=== PATIENT | male | born 1955 | race Caucasian/White ===

== ENCOUNTER 2022-12-19 14:08 | Outpatient (REF) | payer MEDICARE, SELFPAY ==
[2022-12-19 18:30] LABS: Appearance Urine Clear; Color Urine Yellow; Glucose Urine UA Negative (Negative); Leukocyte Esterase Urine Negative (Negative); Nitrite Urine Negative (Negative); PH 5.5 (5.0-9.0); Urine Blood Negative (Negative); Urine Ketones Negative (Negative); Urine Protein Negative (Neg-Trace)
== END 2022-12-19 14:09 | disposition home or self-care (01) ==
LOC: HO.MANLDS 14:08
PROVIDERS: Visit Provider Physician Assistant
DX: R30.0 Dysuria (principal)
CPT/HCPCS: 81003

== ENCOUNTER → 2022-12-21 09:37 | Outpatient (REF) | payer MEDICARE, SELFPAY ==
--- NOTE | 2022-12-21 10:03 | CA_ITS ---
Transthoracic Echocardiogram Patient (Last, First, Middle): Jeremie Dobbins, Gender: Male Date of : 1955 Age: 67 Procedure Date: 12/21/2022 Procedure Type: Transthoracic Echocardiogram Location: [facility] Height: 172.72 cm Weight: 83.92 kg BSA: 1.98 m2 Heart Rate: bpm BP: 175 / 85 mmHg Protection Officer: ASH Referring MD: Kirsten ORONA Medical Chemist: Logan Sahu MD Symptoms: PAF I48.0 Study Quality: Adequate ECG Rhythm: Sinus Conclusions: - 1. Normal LV systolic function with LVEF of 65-70% with moderate LVH with impaired relaxation filling pattern 2. Mild mitral regurgitation 3. Normal RV systolic pressure 4. Upper limits of normal ascending aortic size 5. No pericardial effusion Findings Left Ventricle Normal left ventricular size and systolic function. There is moderately increased left ventricular wall thickness. The visually estimated ejection fraction is between 65-70%. Spectral Doppler is indicative of an impaired relaxation filling pattern. E/E prime ratio is between 8 and 15 consistent with indeterminate filling pressures. Right Ventricle Normal right ventricular cavity size and systolic function. Atria The left atrium is likely dilated. There is no evidence of interatrial shunt. The right atrium is normal in size. Aortic Valve Normal aortic valve structure and function. There is no aortic valve stenosis. There is no aortic valve regurgitation. Mitral Valve There is mild anterior and posterior mitral leaflet thickening. There is mild mitral valve regurgitation. There is no mitral valve stenosis. Pulmonic Valve The pulmonic valve is likely normal. Tricuspid Valve Normal tricuspid valve structure. There is trace tricuspid valve regurgitation. The right ventricular systolic pressure is normal. The right ventricular systolic pressure is 24 mmHg. Normal right atrial pressure. There is no evidence of pulmonary hypertension. Great Vessels The pulmonary artery was not well visualized. Venous The inferior vena cava is normal in size and collapses greater than 50% with inspiration. Pericardium/Pleural There is no evidence of pericardial effusion. Prior Study Comparison No prior study available for comparison. Measurements 2D Linear Measurements IVSd: 1.47 0.6-0.9/0.6-1.0 cm LVIDd: 3.93 3.9-5.3/4.2-5.9 cm LVIDd Index: 1.98 2.4-3.2/2.2-3.1 cm/m2 LVIDs: 2.48 2.0-3.6 cm LVPWd: 1.43 0.7-1.1 cm Ao Root: 3.10 2.1-3.5 cm LA Diam: 4.40 2.7-3.8/3.0-4.0 cm LAIDs Index: 2.22 1.5-2.3 cm/m2 LV Mass: 268.23 67-162/88-224 g LV Mass Index: 135.47 43-95/49-115 g/m2 LVOT Diam: 2.20 3.0+(-)1.3 cm Mitral Valve MV Pk E: 0.54 MV PK A: 0.63 MV Decel Time: 232.00 E/A: 0.90 E'Lateral: 14.10 E'Medial: 7.29 E/E' Med: 7.50 E/E' Lat: 3.90 PHT: 68.00 MVA PHT: 3.24 Decel [place]: 2.34 Aortic Valve AoV Pk Chidi: 1.35 AoV Mn Chidi: 0.80 AoV VTI: 0.37 AoV Pk Grad: 7.00 Aov Mn Grad: 3.00 RISSA Cont.VTI: 2.67 LVOT LVOT Pk Chidi: 0.84 LVOT Mn Chidi: 0.53 LVOT VTI: 0.26 LVOT Pk Grad: 3.00 LVOT Mn Grad: 1.00 LVOT Diam: 2.20 LVOT Area: 3.80 Diastolic Function MV Pk E: 0.54 MV Pk A: 0.63 E/A: 0.90 E'Medial: 7.29 E/E' Med: 7.50 E' Laterial: 14.10 E/E' Lat: 3.90 Right Ventricle TAPSE (mm): 21.00 TVS' Chidi: 9.00 Tricuspid Valve TR Pk Chidi: 2.31 TR Pk Grad: 21.00 RA Press: 3.00 RVSP: 24.00 Great Vessels Aorta Ao Root-2D: 3.10 2.0-3.7 cm Ao Asc: 3.60 2.1-3.4 cm Pulmonary Valve PV Pk Chidi: 0.90 Peak PV Grad: 3.00 Updated in Other Vendor System with Status of Final Logan Sahu MD electronically signed on 12/21/2022 12:36:02 PM with status of Final
== END ==
LOC: HO.CARD 09:37
PROVIDERS: PCP Internal Medicine; Referring Provider Internal Medicine Cardiovascular Disease; Visit Provider Physician Assistant
DX: I48.0 Paroxysmal atrial fibrillation (principal)
CPT/HCPCS: 93306

== ENCOUNTER 2023-11-23 10:49 | Outpatient (AMB) | payer MEDICARE, SELFPAY ==
--- NOTE | 2023-11-23 10:51 | MHC.OFFVIS ---
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 Accompanied by: Self / Same As Patient Allergies amlodipine Allergy (Severe, Verified 11/23/23 11:02) Swelling Clonidine Allergy (Severe, Uncoded 11/23/23 11:02) Hives Hydralazine Allergy (Mild, Uncoded 11/23/23 11:02) Nausea and Vomiting Nefedipine Allergy (Mild, Uncoded 11/23/23 11:02) Numbness parzonsin Allergy (Mild, Uncoded 11/23/23 11:02) Unknown Tadalafil Allergy (Mild, Uncoded 11/23/23 11:02) Unknown Medication List - Last Reconciled 11/23/23 by Daniel Pierce MD apixaban (Eliquis) 5 mg PO BID cyanocobalamin (vitamin B-12) 1,000 mcg subcut DAILY famotidine 40 mg PO DAILY glycopyrrolate-neostigmine 0.6 mg-3 mg/3mL (0.2 mg-1mg/mL) mL IV hydrochlorothiazide 12.5 mg PO BID irbesartan 150 mg PO BID lansoprazole 30 mg PO DAILY metoprolol succinate ER 25 mg PO BID HPI Comments Details: Jeremie is here for consultation regarding uncontrolled hypertension. It seems that he is tried various medications over time and has had numerous issues. He brought a file with extensive list of meds tried, side effects etc.. It seems that with amlodipine he had severe ankle swelling. With hydralazine, he had diarrhea, vomiting and various other issues. With doxazosin, had lightheadedness. With clonidine patch, he had hives on his face and body. With nifedipine, he had pins and needles. With labetalol labile readings. Steep blood pressure drop. With prazosin, again blood pressure went too low. He is taking carvedilol but not anymore. Not clear if there were any issues at all. Current meds include irbesartan and hydrochlorothiazide. Otherwise, there is 1 episode of atrial fibrillation treated in [place], May 2022. He states he had other Holter through cardiology in [place] and told to have asymptomatic episodes. He remains on anticoagulation. Otherwise, no documented CAD but it seems he does get chest pain with or without activity. Possible angina. Generalized tiredness all the time. [facility] Medical History (Updated 11/23/23 @ 11:49 by Daniel Pierce MD) Essential hypertension PAF (paroxysmal atrial fibrillation) Family History (Updated 11/23/23 @ 11:09 by Any Chery CMA) Father High blood pressure History of multiple strokes Social History (Updated 11/23/23 @ 11:10 by Any Chery CMA) Household Members: Spouse Alcohol intake: current Patient Tobacco Use Status: Never used Tobacco Review of Systems Const Denies chills, Denies fatigue, Denies fever(s), Denies frequent falls, Denies weakness, Denies weight gain and Denies weight loss ENT Denies dizziness Card Denies chest pain, Denies leg edema, Denies lightheadedness, Denies palpitations, Denies dyspnea, Denies dyspnea on exertion and Denies orthopnea Resp Denies cough, Denies dyspnea and Denies dyspnea on exertion GI Denies bloating and Denies change in bowel habits Musc Denies muscle weakness, Denies numbness and Denies tingling Neuro Denies dizziness, Denies frequent falls, Denies numbness, Denies tingling and Denies weakness Endo Denies fatigue and Denies palpitations Physical Exam Vital Signs: Last Vital Signs Pulse 57 11/23/23 10:54 BP 150/70 H 11/23/23 10:54 BMI result Body Mass Index 28.8 Const General: comfortable and no acute distress Orientation/consciousness: patient oriented x3 HEENT Other: Unremarkable Head: Yes normal to inspection Neck Neck: Yes normal visual inspection Chest Chest palpation & inspection: normal inspection of the chest Resp Auscultation: clear to auscultation bilaterally Cardio Palpation: normal PMI Heart sounds: S1 normal heart sound present, S2 normal heart sound present, no gallops, no murmurs and no rubs GI Palpation (GI): Soft to palpation Back/Spine/Pelvis Other: unremarkable Skin General skin exam: no rashes or lesions noted Neuro General: patient oriented x3 Extrem General: Yes normal to inspection Psych Mental Status: mental status grossly normal Office Procedures EKG Details: EKG with sinus bradycardia 57/Min; leftward axis; no significant ST-T [place]; [place] [id number], Complete Assessment & Plan Assessment & Plan (1) Uncontrolled hypertension: Code(s): I10 - Essential (primary) hypertension Category: Medical Plan: Intolerance to various medications including amlodipine, hydralazine, doxazosin, clonidine patch, nifedipine, labetalol, prazosin. We can continue the irbesartan hydrochlorothiazide without changes. Again try Coreg instead of metoprolol as it has a better blood pressure lowering effect. He will let us know if he has any side effects. Not clear if there was any issue with spironolactone in the past. Per labs brought by patient, N terminal proBNP 196. Renin level <0.6. Potassium 4.2. Creatinine 0.8. High sensitivity troponin within normal limits. Renin, metanephrine, normetanephrine, aldosterone within normal limits. Also obtain renal artery Doppler. Possibly assess for renal denervation in the future. (2) Precordial chest pain: Code(s): R07.2 - Precordial pain Category: Medical Plan: Need to evaluate angina from obstructive CAD. Obtain exercise stress perfusion imaging study. Prior ETT at [facility] 2022-attained 7.8 Mets. No EKG evidence of ischemia. No angina. Frequent PACs during exercise. Echocardiogram from 2022-LVEF of 65-70%; mild diastolic dysfunction and mild mitral regurgitation. (3) PAF (paroxysmal atrial fibrillation): Code(s): I48.0 - Paroxysmal atrial fibrillation Category: Medical Plan: Beta-blockers and anticoagulation. He still has some palpitations and hence obtain Holter monitor. EKG from [place], 2021-atrial fibrillation with rapid ventricular rate at 01:33/Min. Nonspecific ST-T changes. (4) NSVT (nonsustained ventricular tachycardia): Code(s): I47.29 - Other ventricular tachycardia Category: Medical Plan: Per cardiology notes in [place], a prior Holter had shown 11 beat run of NSVT. Continue beta-blockers as above. Preserved LVEF on echocardiogram. Obtain stress test. Plan Total time spent including review of all the patient records, counseling, documentation, coordination of care-65 minutes. Orders: Orders CA stress test Today R07.2 - Precordial pain NM cardiolite stress test Today R07.2 - Precordial pain ECG 7 day holter monitor Today R00.2 - Palpitations US renal doppler Today I70.1 - Atherosclerosis of renal artery Medications: New carvedilol (Coreg) must administer with a meal/food 12.5 mg PO BID 90 days 180 tabs 3RF Coding Level of Care Code New Pt Level 5 (40860) Diagnoses Uncontrolled hypertension I10 Precordial chest pain R07.2 PAF (paroxysmal atrial fibrillation) I48.0 NSVT (nonsustained ventricular tachycardia) I47.29 CPT Codes EKG - CPT: [id number], Complete ([id number])
[2023-11-23 10:54] VITALS: BP 150/70; PULSE 57; BMI 28.8
== END 2023-11-23 11:36 | disposition home or self-care (01) ==
PROVIDERS: PCP Internal Medicine; Visit Provider Internal Medicine
DX: I10 Essential (primary) hypertension (principal); R07.2 Precordial pain; I48.0 Paroxysmal atrial fibrillation; I47.29 Other ventricular tachycardia; R00.1 Bradycardia, unspecified
CPT/HCPCS: 93010; 99205

== ENCOUNTER → 2023-11-23 10:49 | Outpatient (BNVA) | payer MEDICARE, SELFPAY | PROVIDERS: PCP Internal Medicine; Visit Provider Internal Medicine | DX: I10 Essential (primary) hypertension (principal); I48.0 Paroxysmal atrial fibrillation; I47.29 Other ventricular tachycardia; R07.2 Precordial pain | CPT/HCPCS: 93005; 99202 ==

== ENCOUNTER 2023-12-05 07:33 | Outpatient (REF) | payer MEDICARE, SELFPAY ==
--- NOTE | ~2023-12-05 | US_ITS ---
EXAMINATION: ULTRASOUND RENAL WITH DOPPLER CLINICAL INFORMATION: Renal artery atherosclerosis. COMPARISON: None. TECHNIQUE: Real-time grayscale, color Doppler, and duplex Doppler evaluation of the kidneys and renal vasculature was performed. FINDINGS: RENAL MEASUREMENTS: Right: 11.3 x 5.5 x 5.5 cm (Sag x AP x TV). There is mild cortical thinning. Left: 11.9 x 5.7 x 4.4 cm (Sag x AP x TV). There is cortical thinning. At the interpolar aspect laterally, a 3.7 cm benign, simple cyst is seen, for which no imaging follow-up is recommended. The renal parenchyma appears normal. No hydronephrosis or nephrolithiasis. DOPPLER INTERROGATION: Aorta: 111 cm/sec Right Main Renal Artery: Proximal: 105 cm/sec Mid: 187 cm/sec Distal: 74 cm/sec Left Main Renal Artery: Proximal: 97 cm/sec Mid: 95 cm/sec Distal: 62 cm/sec Renal-Aortic Ratio (RAR): Right: Not calculated (aortic PSV greater than 100 cm/s) Left: Not calculated, as above Bilateral upper pole, interpolar and lower pole segmental resistive indices are within normal limits. There is mild delay in upstroke of right renal interpolar segmental waveforms. Bilateral upper pole, interpolar and lower pole segmental pulse doppler waveforms are otherwise unremarkable, with uniformly rapid upstrokes and no parvus et tardus configuration. US/US renal BI IMPRESSION: 1. There is borderline hemodynamically significant right renal artery stenosis. This can be further evaluated with CTA or MRA, if clinically indicated. 2. No hemodynamically significant left renal artery stenosis is seen.
--- NOTE | ~2023-12-05 | US_ITS ---
EXAMINATION: ULTRASOUND RENAL WITH DOPPLER CLINICAL INFORMATION: Renal artery atherosclerosis. COMPARISON: None. TECHNIQUE: Real-time grayscale, color Doppler, and duplex Doppler evaluation of the kidneys and renal vasculature was performed. FINDINGS: RENAL MEASUREMENTS: Right: 11.3 x 5.5 x 5.5 cm (Sag x AP x TV). There is mild cortical thinning. Left: 11.9 x 5.7 x 4.4 cm (Sag x AP x TV). There is cortical thinning. At the interpolar aspect laterally, a 3.7 cm benign, simple cyst is seen, for which no imaging follow-up is recommended. The renal parenchyma appears normal. No hydronephrosis or nephrolithiasis. DOPPLER INTERROGATION: Aorta: 111 cm/sec Right Main Renal Artery: Proximal: 105 cm/sec Mid: 187 cm/sec Distal: 74 cm/sec Left Main Renal Artery: Proximal: 97 cm/sec Mid: 95 cm/sec Distal: 62 cm/sec Renal-Aortic Ratio (RAR): Right: Not calculated (aortic PSV greater than 100 cm/s) Left: Not calculated, as above Bilateral upper pole, interpolar and lower pole segmental resistive indices are within normal limits. There is mild delay in upstroke of right renal interpolar segmental waveforms. Bilateral upper pole, interpolar and lower pole segmental pulse doppler waveforms are otherwise unremarkable, with uniformly rapid upstrokes and no parvus et tardus configuration. US/US renal doppler IMPRESSION: 1. There is borderline hemodynamically significant right renal artery stenosis. This can be further evaluated with CTA or MRA, if clinically indicated. 2. No hemodynamically significant left renal artery stenosis is seen.
== END 2023-12-05 07:34 | disposition home or self-care (01) ==
LOC: HO.US 07:33
PROVIDERS: PCP Internal Medicine; Visit Provider Internal Medicine
DX: I70.1 Atherosclerosis of renal artery (principal)
CPT/HCPCS: 76775; 93975

== ENCOUNTER → 2024-01-04 07:54 | Outpatient (REF) | payer MEDICARE, SELFPAY ==
--- NOTE | ~2024-01-04 | NM_ITS ---
EXERCISE MYOCARDIAL PERFUSION STUDY INDICATION: Abnormal EKG, chest pain TECHNIQUE: The patient was brought in for an exercise perfusion study on 01/04/2024. Patient performed exercise as per Servando protocol and was injected 30 mCi of sestamibi once target heart rate was achieved. Images were obtained using the SPECT gamma camera interlaced with the gating device. Images were obtained in supine position. Resting perfusion study was performed on 01/11/2024. Patient was administered 30 mCi of sestamibi intravenously at rest. Images were then obtained in supine position. Images were processed with the software and compared side to side in short axis, horizontal long axis and vertical long axis views. Total DLP 59mGy-cm. FINDINGS: Raw images were reviewed. The stress perfusion study showed diminished tracer uptake along the inferior wall. There is improvement with CT attenuation correction seen just to of diaphragmatic attenuation artifact. The gated study shows normal LV systolic function with calculated LVEF of 62%. LV cavity is normal in size. The gated study shows normal wall thickening and contraction of segments. Resting study shows diminished tracer uptake along the inferior wall. There is improvement with CT attenuation correction suggestive of diaphragmatic attenuation artifact. Gating at rest reveals normal wall motion with ejection fraction at 72%. The findings are consistent with fixed inferior perfusion defect, probably from diaphragmatic attenuation artifact. No reversible defects. NM/NM cardiolite stress test IMPRESSION: 1. Myocardial perfusion imaging study shows probably normal myocardial perfusion. 2. Gated LVEF is 62% during stress and 72% during rest. 3. Transient ischemic dilatation not present. EKG component of the test reported separately.
--- NOTE | 2024-01-04 07:58 | HM_ITS ---
Conclusion: 1. Patient was monitored for total period of 6 days and 21 hours 2. Baseline was normal sinus rhythm with average heart rate of 73 beats per minute 3. Frequent PACs noted with total burden of 3.1% with frequent supraventricular runs, longest lasting 20 beats and the fastest at 142 beats per minute 4. Occasional PVCs noted 5. No patient reported events MTDD
--- NOTE | 2024-01-04 07:58 | CA_ITS ---
Acquisition Time: 2024-01-04 07:52:09 Total Exercise Time: 00:08:33 Test Indications: Abnormal ECG HTN Medications: ELIQUIS FAMOTIDINE HCTZ IRBESARTAN LANSOPRAZOLE METOPROLOL Protocol: KARINE Max HR: 117 BPM 78% of Pred: 150 BPM Max BP: 144/070 mmHG Max Work Load: 10.1 METS Exercise stress test with exercise 8 min 33 sec of Karine protocol, achieving 75% MPHR ( took carvedilol this am), 10.1 METs with mderate shortness of breath, with isolated PACs, brief atrial runs, rare PVCs, with normotensive response to exercise, without EKG changes meeting criteria for ischemia. Nuclear images pending. Test reviewed with Dr Harrell.. Referred By: Daniel Pierce Overread By: VENUS CONDE
== END ==
LOC: HO.CARD 07:54
PROVIDERS: PCP Internal Medicine; Visit Provider Internal Medicine
DX: R07.2 Precordial pain (principal); R00.2 Palpitations
CPT/HCPCS: 78452; 93017; 93242; A9500

== ENCOUNTER → 2024-01-04 07:58 | Outpatient (BNV) | payer MEDICARE, SELFPAY | PROVIDERS: PCP Internal Medicine; Visit Provider Nurse Practitioner Family | DX: I49.1 Atrial premature depolarization (principal); I47.10 Supraventricular tachycardia, unspecified; I49.3 Ventricular premature depolarization | CPT/HCPCS: 78452; 93016; 93018; 93244 ==

== ENCOUNTER 2024-01-30 12:46 | Outpatient (REF) | payer MEDICARE, SELFPAY ==
[2024-01-30 15:16] LABS: Anion Gap 13 (12-20); Blood Urea Nitrogen 17 mg/dL (9-16); Calcium 9.6 mg/dL (8.4-10.2); Carbon Dioxide 28 mmol/L (22-29); Chloride 105 mmol/L (96-108); Estimated Glomerular Filt Rate > 60; Glucose Random 104 mg/dL (60-115); Potassium 3.6 mmol/L (3.3-5.1); Sodium 142 mmol/L (135-145)
== END 2024-01-30 12:47 | disposition home or self-care (01) ==
LOC: HO.LAB 12:46
PROVIDERS: PCP Internal Medicine; Visit Provider Internal Medicine
DX: I10 Essential (primary) hypertension (principal); R07.2 Precordial pain; I48.0 Paroxysmal atrial fibrillation; I47.29 Other ventricular tachycardia
CPT/HCPCS: 36415; 80048; 99212

== ENCOUNTER 2024-01-30 12:46 | Outpatient (AMB) | payer MEDICARE, SELFPAY ==
--- NOTE | 2024-01-30 12:59 | A.OFFVIS_ITS ---
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 Accompanied by: Self / Same As Patient Allergies amlodipine Allergy (Severe, Verified 11/23/23 11:02) Swelling Clonidine Allergy (Severe, Uncoded 11/23/23 11:02) Hives Hydralazine Allergy (Mild, Uncoded 11/23/23 11:02) Nausea and Vomiting Nefedipine Allergy (Mild, Uncoded 11/23/23 11:02) Numbness parzonsin Allergy (Mild, Uncoded 11/23/23 11:02) Unknown Tadalafil Allergy (Mild, Uncoded 11/23/23 11:02) Unknown Medication List - Last Reconciled 01/30/24 by Daniel Pierce MD apixaban (Eliquis) 5 mg PO BID carvedilol (Coreg) 12.5 mg PO BID 90 days cyanocobalamin (vitamin B-12) 1,000 mcg subcut DAILY famotidine 40 mg PO DAILY hydrochlorothiazide 12.5 mg PO BID irbesartan 150 mg PO BID lansoprazole 30 mg PO DAILY HPI Comments Details: Jeremie returns for follow-up. In the past, was seen regarding uncontrolled hypertension. It seems that he has tried various medications over time and has had numerous issues. He brought a file with extensive list of meds tried, side effects etc.. It seems that with amlodipine he had severe ankle swelling. With hydralazine, he had diarrhea, vomiting and various other issues. With doxazosin, had lightheadedness. With clonidine patch, he had hives on his face and body. With nifedipine, he had pins and needles. With labetalol labile readings. Steep blood pressure drop. With prazosin, again blood pressure went too low. Current meds include irbesartan and hydrochlorothiazide. During reason visit, we started carvedilol. Otherwise, there is one episode of atrial fibrillation treated in [place], May 2022. He states he had other Holter through cardiology in [place] and told to have asymptomatic episodes. He remains on anticoagulation. Otherwise, no documented CAD but it seems he does get chest pain with or without activity. Unclear what that is. Generalized tiredness. COUNT INCLUDES THE [facility] Medical History (Updated 11/23/23 @ 11:49 by Daniel Pierce MD) Essential hypertension PAF (paroxysmal atrial fibrillation) Family History Father High blood pressure History of multiple strokes Social History Household Members: Spouse Alcohol intake: current Patient Tobacco Use Status: Never used Tobacco Review of Systems Const Denies chills, Denies fatigue, Denies fever(s), Denies weight gain and Denies weight loss ENT Denies dizziness Card Reports chest pain, Denies leg edema, Denies lightheadedness, Denies palpitations, Denies dyspnea on exertion, Denies orthopnea and Denies other Resp Denies cough and Denies dyspnea on exertion GI Denies hematochezia and Denies change in stool character Musc Denies abnormal gait, Denies muscle weakness, Denies numbness, Denies radiating pain into limb and Denies tingling Neuro Denies abnormal gait, Denies dizziness, Denies numbness and Denies tingling Endo Denies fatigue and Denies palpitations Physical Exam Vital Signs: Last Vital Signs Pulse 64 01/30/24 13:00 BP 114/70 01/30/24 13:00 BMI result Body Mass Index 28.4 Const General: comfortable and no acute distress Orientation/consciousness: patient oriented x3 HEENT Other: Unremarkable Head: Yes normal to inspection Neck Neck: Yes normal visual inspection Chest Chest palpation & inspection: normal inspection of the chest Resp Auscultation: clear to auscultation bilaterally Cardio Palpation: normal PMI Heart sounds: S1 normal heart sound present, S2 normal heart sound present, no gallops, no murmurs and no rubs GI Palpation (GI): Soft to palpation Back/Spine/Pelvis Other: unremarkable Skin General skin exam: no rashes or lesions noted Neuro General: patient oriented x3 Extrem General: Yes normal to inspection Psych Mental Status: mental status grossly normal Assessment & Plan Assessment & Plan (1) Uncontrolled hypertension: Code(s): I10 - Essential (primary) hypertension Category: Medical Plan: Intolerance to various medications including amlodipine, hydralazine, doxazosin, clonidine patch, nifedipine, labetalol, prazosin. Current regimen includes irbesartan/hydrochlorothiazide. Recently, we started carvedilol and that seems to be working well. He was on metoprolol prior to that. Blood pressure is completely normal today but he thinks home blood pressures are slightly on the higher side somewhere in the 130s +. He will bring his cuff next time so we can cross check. Not clear if there was any issue with spironolactone in the past, possibly another agent for future. Per labs brought by patient, N terminal proBNP 196. Renin level <0.6. Potassium 4.2. Creatinine 0.8. High sensitivity troponin within normal limits. Renin, metanephrine, normetanephrine, aldosterone within normal limits. Also obtain renal artery Doppler. Possibly assess for renal denervation in the future if there is continued BP issue or blood pressure medicine intolerance. Otherwise, he is awaiting CTA of renal arteries as there was some borderline finding on ultrasound. (2) Precordial chest pain: Code(s): R07.2 - Precordial pain Category: Medical Plan: In the most recent ETT, he was able to reach 10 METS capacity with shortness of breath. Reduced heart rate response but he was on beta-blockers. No EKG evidence of ischemia. Perfusion was also unremarkable. Prior ETT at [facility] 2022-attained 7.8 METS. No EKG evidence of ischemia. No angina. Frequent PACs during exercise. Echocardiogram from 2022-LVEF of 65-70%; mild diastolic dysfunction and mild mitral regurgitation. Will continue to monitor. Consider coronary CTA if this continues. (3) PAF (paroxysmal atrial fibrillation): Code(s): I48.0 - Paroxysmal atrial fibrillation Category: Medical Plan: In the recent Holter, underlying rhythm is sinus with an average rate of 73/Min. Frequent PACs with a burden of 3%. Short supraventricular runs. EKG from [place], 2021-atrial fibrillation with rapid ventricular rate at 133/Min. Nonspecific ST-T changes. Beta-blockers and anticoagulation. (4) NSVT (nonsustained ventricular tachycardia): Code(s): I47.29 - Other ventricular tachycardia Category: Medical Plan: Per cardiology notes in [place], a prior Holter had shown 11 beat run of NSVT. Continue beta-blockers as above. Preserved LVEF on echocardiogram. Stress test without any overt ischemia. Orders: Orders Basic Metabolic Panel Today I10 - Essential (primary) hypertension Coding Level of Care Code Est Pt Level 4 (69680) Diagnoses Uncontrolled hypertension I10 Precordial chest pain R07.2 PAF (paroxysmal atrial fibrillation) I48.0 NSVT (nonsustained ventricular tachycardia) I47.29
[2024-01-30 13:00] VITALS: BP 114/70; PULSE 64; BMI 28.4
== END 2024-01-30 13:49 | disposition home or self-care (01) ==
PROVIDERS: PCP Internal Medicine; Visit Provider Internal Medicine
DX: I10 Essential (primary) hypertension (principal); R07.2 Precordial pain; I48.0 Paroxysmal atrial fibrillation; I47.29 Other ventricular tachycardia
CPT/HCPCS: 99214

== ENCOUNTER 2024-02-20 10:32 | Outpatient (REF) | payer MEDICARE, SELFPAY ==
--- NOTE | ~2024-02-20 | CT_ITS ---
EXAMINATION: CT ANGIOGRAPHY ABDOMEN WITHOUT AND WITH CONTRAST CLINICAL INFORMATION: Renal artery atherosclerosis COMPARISON: Renal ultrasound 12/05/2023 TECHNIQUE: Initial noncontrast localizing director of testing images were obtained. A timing bolus at the level of the celiac artery was calculated. Subsequently, arterial phase multidetector volumetric imaging was performed through the abdomen and pelvis following the administration of 80 mL Omnipaque 350 intravenous contrast. No contrast reaction reported. Sagittal and coronal reformatted images were obtained on the technologist workstation. After extensive post-processing on a dedicated 3-D workstation, 3-D reformatted images were uploaded to PACS and reviewed as well. This CT examination was performed using dose optimization techniques as appropriate, variously including the following: *Automated exposure control *Adjustment of mA and/or kV according to patient size (this includes techniques or standardized protocols for targeted exams where dose is matched to indication/reason for exam; i.e. extremities or head) *Use of iterative reconstruction technique DLP: 173 mGy-cm FINDINGS: VASCULAR FINDINGS: Aorta: Mild infrarenal atherosclerotic calcifications. No aneurysm or dissection of the abdominal aorta. No penetrating atheromatous ulcer. Mesenteric Arteries: Celiac artery is patent. Superior mesenteric artery patent. Inferior mesenteric artery patent. Renal arteries: Two right and two left renal arteries. Minimal atherosclerotic calcifications of the left dominant renal artery. Renal arteries are patent and without stenosis or other vascular anomaly. 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 Left common iliac artery is patent with minimal atherosclerotic disease. NONVASCULAR: Lung Bases: The visualized lung bases are clear. Liver: Homogeneous in attenuation. Normal in size. Gallbladder: Noninflamed. Biliary System: No intrahepatic or extrahepatic biliary dilation. Pancreas: Homogeneous in attenuation. Spleen: Normal in size. Genitourinary: Bilateral kidneys demonstrate symmetric enhancement. Exophytic left interpolar posterior Bosniak 1 cyst measuring 3.9 x 3.9 cm; no follow-up needed. No perinephric fluid collection. No renal calculi. No hydroureteronephrosis. Adrenal Glands: Unremarkable. Gastrointestinal: The visualized alimentary tract is normal in course. No evidence of obstruction. Peritoneum: No pneumoperitoneum. No intra-abdominal fluid collection. Lymph Nodes: No pathologically enlarged abdominal lymph nodes. Soft Tissues/Musculoskeletal: There is no acute fracture or significant focal osseous lesion. Degenerative disc disease at L5-S1. CT/CT angio abdomen IMPRESSION: VASCULAR FINDINGS: 1. 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 No hemodynamically significant stenosis of these renal arteries. 2. 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 NONVASCULAR FINDINGS: No acute pathology of the abdomen. Fleischner guidelines were followed.
[2024-02-20] MEDS: iohexoL 350 MG/ML 100 ML INFUS..BTL 80 ML IV (11:58)
== END 2024-02-20 10:33 | disposition home or self-care (01) ==
LOC: HO.CT 10:32
PROVIDERS: Visit Provider Internal Medicine
DX: I70.1 Atherosclerosis of renal artery (principal)
CPT/HCPCS: 74175; Q9967

== ENCOUNTER 2024-04-03 12:44 | Outpatient (AMB) | payer MEDICARE, SELFPAY ==
[2024-04-03 12:50] VITALS: BP 128/76; PULSE 70; BMI 28.5
--- NOTE | 2024-04-03 12:50 | A.OFFVIS_ITS ---
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 Allergies amlodipine Allergy (Severe, Verified 11/23/23 11:02) Swelling Clonidine Allergy (Severe, Uncoded 11/23/23 11:02) Hives Hydralazine Allergy (Mild, Uncoded 11/23/23 11:02) Nausea and Vomiting Nefedipine Allergy (Mild, Uncoded 11/23/23 11:02) Numbness parzonsin Allergy (Mild, Uncoded 11/23/23 11:02) Unknown Tadalafil Allergy (Mild, Uncoded 11/23/23 11:02) Unknown Medication List - Last Reconciled 04/03/24 by Daniel Pierce MD apixaban (Eliquis) 5 mg PO BID atorvastatin 40 mg PO QPM carvedilol (Coreg) 12.5 mg PO BID 90 days cyanocobalamin (vitamin B-12) 1,000 mcg subcut DAILY famotidine 40 mg PO DAILY hydrochlorothiazide 12.5 mg PO BID irbesartan 150 mg PO BID lansoprazole 30 mg PO DAILY HPI Comments Details: Jeremie returns for follow-up. In the past, was seen regarding uncontrolled hypertension. He has tried various medications over time and has had numerous issues. He brought a file with extensive list of meds tried, side effects etc.. With amlodipine he had severe ankle swelling. With hydralazine, he had diarrhea, vomiting and various other issues. With doxazosin, had lightheadedness. With clonidine patch, he had hives on his face and body. With nifedipine, he had pins and needles. With labetalol, labile readings. Steep blood pressure drop. With prazosin, again blood pressure went too low. Current meds include irbesartan and hydrochlorothiazide. During recent visit, we started carvedilol. Otherwise, there is one episode of atrial fibrillation treated in [place], May 2022. He states he had other Holter through cardiology in [place] and told to have asymptomatic episodes. He remains on anticoagulation. He was complaining of some chest pains in the past but completely resolved at this time. Otherwise, no new concerns. [facility] Medical History (Updated 02/25/24 @ 18:51 by Daniel Pierce MD) Essential hypertension PAF (paroxysmal atrial fibrillation) Family History Father High blood pressure History of multiple strokes Social History Household Members: Spouse Alcohol intake: current Patient Tobacco Use Status: Never used Tobacco Review of Systems Const Denies chills, Denies fatigue, Denies fever(s), Denies frequent falls, Denies weakness, Denies weight gain and Denies weight loss ENT Denies dizziness Card Denies chest pain, Denies leg edema, Denies lightheadedness, Denies palpitations, Denies dyspnea, Denies dyspnea on exertion, Denies orthopnea and Denies other (loss of consciousness) Resp Denies cough, Denies dyspnea and Denies dyspnea on exertion GI Denies hematochezia and Denies change in stool character Musc Denies abnormal gait, Denies muscle weakness, Denies numbness, Denies radiating pain into limb and Denies tingling Neuro Denies abnormal gait, Denies dizziness, Denies frequent falls, Denies numbness, Denies tingling and Denies weakness Endo Denies fatigue and Denies palpitations Physical Exam Vital Signs: Last Vital Signs Pulse 70 04/03/24 12:50 BP 128/76 04/03/24 12:50 BMI result Body Mass Index 28.5 Const General: comfortable and no acute distress Orientation/consciousness: patient oriented x3 HEENT Other: Unremarkable Head: Yes normal to inspection Neck Neck: Yes normal visual inspection Chest Chest palpation & inspection: normal inspection of the chest Resp Auscultation: clear to auscultation bilaterally Cardio Palpation: normal PMI Heart sounds: S1 normal heart sound present, S2 normal heart sound present, no gallops, no murmurs and no rubs GI Palpation (GI): Soft to palpation Back/Spine/Pelvis Other: unremarkable Skin General skin exam: no rashes or lesions noted Neuro General: patient oriented x3 Extrem General: Yes normal to inspection Psych Mental Status: mental status grossly normal Assessment & Plan Assessment & Plan (1) Uncontrolled hypertension: Code(s): I10 - Essential (primary) hypertension Category: Medical Plan: Intolerance to various medications including amlodipine, hydralazine, doxazosin, clonidine patch, nifedipine, labetalol, prazosin. He is on irbesartan and hydrochlorothiazide and would like to combine them into a single tablet. Appropriate script sent. Continue carvedilol. Blood pressure seems much improved. Not clear if there was any issue with spironolactone in the past, possibly another agent for future. Per labs brought by patient, N terminal proBNP 196. Renin level <0.6. Potassium 4.2. Creatinine 0.8. High sensitivity troponin within normal limits. Renin, metanephrine, normetanephrine, aldosterone within normal limits. In the CTA, no significant renal artery stenosis. (2) Precordial chest pain: Code(s): R07.2 - Precordial pain Category: Medical Plan: In the ETT, he was able to reach 10 METS capacity with shortness of breath. Reduced heart rate response but he was on beta-blockers. No EKG evidence of ischemia. Perfusion was also unremarkable. Prior ETT at [facility] 2022-attained 7.8 METS. No EKG evidence of ischemia. No angina. Frequent PACs during exercise. Echocardiogram from 2022-LVEF of 65-70%; mild diastolic dysfunction and mild mitral regurgitation. Currently, he states chest pain is resolved. (3) PAF (paroxysmal atrial fibrillation): Code(s): I48.0 - Paroxysmal atrial fibrillation Category: Medical Plan: In the recent Holter, underlying rhythm is sinus with an average rate of 73/Min. Frequent PACs with a burden of 3%. Short supraventricular runs. EKG from [place], 2021-atrial fibrillation with rapid ventricular rate at 133/Min. Nonspecific ST-T changes. Beta-blockers and anticoagulation. (4) NSVT (nonsustained ventricular tachycardia): Code(s): I47.29 - Other ventricular tachycardia Category: Medical Plan: Per cardiology notes in [place], a prior Holter had shown 11 beat run of NSVT. Continue beta-blockers as above. Preserved LVEF on echocardiogram. Stress test without any overt ischemia. 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 Referred to vascular. Otherwise, strongly recommend statins. Prescription was sent in the past but he has not started yet as he is apprehensive of new medications. Advised him to at least try. Will need follow-up labs in the future. Plan As he is traveling to [place], we will need to see him many returns. Medications: New irbesartan-hydrochlorothiazide 150-12.5 mg 1 tab PO BID 180 tabs 3RF 90 days Coding Level of Care Code Est Pt Level 4 (35527) Diagnoses Uncontrolled hypertension I10 Precordial chest pain R07.2 PAF (paroxysmal atrial fibrillation) I48.0 NSVT (nonsustained ventricular tachycardia) I47.29 Iliac artery dissection I77.72
== END 2024-04-03 13:13 | disposition home or self-care (01) ==
PROVIDERS: PCP Internal Medicine; Visit Provider Internal Medicine
DX: I10 Essential (primary) hypertension (principal); R07.2 Precordial pain; I48.0 Paroxysmal atrial fibrillation; I47.29 Other ventricular tachycardia; I77.72 Dissection of iliac artery
CPT/HCPCS: 99214

== ENCOUNTER → 2024-04-03 12:44 | Outpatient (BNVA) | payer MEDICARE, SELFPAY | PROVIDERS: PCP Internal Medicine; Visit Provider Internal Medicine | DX: I10 Essential (primary) hypertension (principal); I48.0 Paroxysmal atrial fibrillation; I77.72 Dissection of iliac artery; I47.29 Other ventricular tachycardia; R07.2 Precordial pain | CPT/HCPCS: 99212 ==

== ENCOUNTER 2024-05-16 13:26 | Outpatient (AMB) | payer MEDICARE, SELFPAY ==
--- NOTE | 2024-05-16 13:34 | A.OFFVIS_ITS ---
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 No complaints. 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 He had originally been worked up for hypertension by Cardiology. He had intolerance to several medications. He subsequently underwent an ultrasound which was concerning for questionable renal artery stenosis subsequent CT angiogram was obtained at that time the renal arteries appear to be within normal limits but there was a question of a dissection flap on the right common iliac artery from a penetrating ulcer. At the current time he denies any symptoms. He remains quite active and has been remodeling his house. He is able to climb 1-2 flights of stairs with no significant difficulty. He reports that he quit smoking about 30 years ago. At the current time he is being maintained on Eliquis and a statin. [facility] Medical History Essential hypertension PAF (paroxysmal atrial fibrillation) Family History Father High blood pressure History of multiple strokes Social History Household Members: Spouse Alcohol intake: current Patient Tobacco Use Status: Never used Tobacco Review of Systems Const All systems reviewed & are unremarkable except as noted in HPI and below Reports no additional complaints ENT Reports Normal hearing present Card Denies chest pain, Denies chest pain at rest, Denies chest pain with activity and Denies pedal edema Resp Denies cough GI Denies abdominal pain Musc Denies abnormal gait, Denies muscle cramps and Denies radiating pain into limb Skin/Breast Denies skin ulcer and Denies wounds Neuro Reports Normal hearing present and Denies abnormal gait Psych Reports no additional complaints Physical Exam Const General: cooperative, healthy appearing and comfortable Orientation/consciousness: oriented to person, oriented to place and oriented to time HEENT Head: Yes normal to inspection Neck Neck: Yes normal visual inspection Carotids: no bruits Chest Chest palpation & inspection: normal inspection of the chest Resp Effort & Inspection: normal respiratory effort and able to speak in complete sentences Auscultation: clear to auscultation bilaterally, no crackles, no rales, no rhonchi and no wheezes Cardio Other: Bilateral palpable dorsalis pedis pulse Rate: regular rate Rhythm: regular rhythm Heart sounds: S1 normal heart sound present and S2 normal heart sound present Bruits: no carotid bruits Peripheral pulses: Peripheral pulses 2+ throughout GI Inspection: Yes normal to inspection Skin Wounds: no wounds Hair: normal Neuro General: oriented to person, oriented to place and oriented to time Cranial nerves: Yes CN's II-XII intact bilaterally and Yes Normal hearing present Cognition (Neuro): normal cognition Motor exam (neuro): 5/5 motor strength present throughout Extrem Other: venous exam: No significant superficial varicosities or spider te [place]ie[place]ias, minimal edema General: No clubbing, No cyanosis and No edema Psych Appearance: grossly normal Mental Status: mental status grossly normal Speech and movement: Normal speech and movement present Results Reviewed Results Reviewed: CT angiogram dated 02/20/2024 demonstrates short segment right common iliac dissection Assessment & Plan Assessment & Plan (1) PAD (peripheral artery disease): Code(s): I73.9 - Peripheral vascular disease, unspecified Category: Medical Plan: In short patient has a question of a right common iliac stenosis/dissection. At the current time it appears to be stable and is not flow-limiting. I have taken the liberty of ordering noninvasive surveillance arterial testing in approximately 6 months time. He will be maintained on Eliquis and statin. He will follow up with us after testing. We did discuss routine risk factor modification. Thank you for allowing us to assist in his care. If there are any questions or concerns please do not hesitate to contact us Orders: Orders US arterial duplex LE BI 6 Months I73.9 - Peripheral vascular disease, unspecified US abdominal aortic aneurysm 6 Months I73.9 - Peripheral vascular disease, unspecified Coding Level of Care Code New Pt Level 4 (06994) Complex EM visit Add On G2211 Diagnoses PAD (peripheral artery disease) I73.9
== END 2024-05-16 13:56 | disposition home or self-care (01) ==
LOC: HO.HVS 13:26
PROVIDERS: PCP Internal Medicine; Visit Provider Surgery Vascular Surgery
DX: I73.9 Peripheral vascular disease, unspecified (principal)
CPT/HCPCS: 99204; G2211

== ENCOUNTER → 2024-05-16 13:26 | Outpatient (BNVA) | payer MEDICARE, SELFPAY | PROVIDERS: PCP Internal Medicine; Visit Provider Surgery Vascular Surgery | DX: I73.9 Peripheral vascular disease, unspecified (principal) | CPT/HCPCS: 99202 ==

== ENCOUNTER 2024-11-22 07:50 | Outpatient (REF) | payer MEDICARE, SELFPAY ==
--- NOTE | ~2024-11-22 | US_ITS ---
EXAMINATION: Noninvasive assessment of the bilateral lower extremities with ARTERIAL DUPLEX, ANKLE BRACHIAL INDICES (ABIs), and PULSE VOLUME RECORDINGS (PVRs). ULTRASOUND AORTA AND ILIAC ARTERIES CLINICAL INFORMATION: Peripheral vascular disease. TECHNIQUE: Duplex Doppler techniques with waveform analysis and measurement of velocities in the bilateral common femoral, profunda femoris, superficial femoral, popliteal and tibial arteries were performed. Additionally, ankle pulse volume recordings, ankle pressure measurements and ankle brachial indices were obtained of the lower extremity arterial system bilaterally. The study was performed only at rest. Doppler arterial ultrasound of the arteries and iliac arteries. COMPARISON: None FINDINGS: DIRECT DUPLEX DOPPLER FINDINGS: RIGHT LEG: Common femoral artery: 145 cm/s, phasicity: Triphasic. Profunda femoris artery: 71 cm/s, phasicity: Biphasic. Superficial femoral artery (proximal): 115 cm/s, phasicity: Biphasic. Superficial femoral artery (mid): 103 cm/s, phasicity: Biphasic Superficial femoral artery (distal): 67 cm/s, phasicity: Aphasic. Popliteal artery: 60 cm/s, phasicity: Biphasic. Posterior tibial artery: 81 cm/s, phasicity: Triphasic. Peroneal artery: 70 cm/s, phasicity: Triphasic. Anterior tibial artery: 55 cm/s, phasicity: Triphasic. Dorsalis pedis artery: 62 cm/s, phasicity:Triphasic. LEFT LEG: Common femoral artery: 149 cm/s, phasicity: Triphasic. Profunda femoris artery: 62 cm/s, phasicity: Biphasic. Superficial femoral artery (proximal): 114 cm/s, phasicity: Biphasic. Superficial femoral artery (mid): 109 cm/s, phasicity: Biphasic. Superficial femoral artery (distal): 68 cm/s, phasicity: Biphasic. Popliteal artery: 59 cm/s, phasicity: Biphasic. Posterior tibial artery: 97 cm/s, phasicity: Biphasic. Peroneal artery: 54 cm/s, phasicity: Biphasic. Anterior tibial artery: 93 cm/s, phasicity: Triphasic. Dorsalis pedis artery: 87 cm/s, phasicity: Triphasic. BRACHIAL PRESSURES: Right: 144 Left: 153 ANKLE PRESSURES: Right: PT more 200, DP more 200 Left: PT more 200, DP more 200 ANKLE-BRACHIAL INDEX: Right: Nondiagnostic Left: Nondiagnostic ANKLE PVR WAVEFORMS: Right: Abnormal Left: Abnormal ABDOMINAL AORTA: Proximal segment, not identified. Midsegment: Peak systolic velocity the 80 cm/s and a 1.7 cm diameter. Distal segment: Peak systolic velocity 47 cm/s and 1.4 cm diameter. Right iliac artery: Common iliac artery peak systolic velocity 177 cm/s. External iliac artery peak systolic velocity 178 cm/s. Left iliac artery: Common iliac arteries exhibit the velocity 111 cm/s. External iliac artery peak systolic velocity 121 cm/s US/US abdominal aortic aneurysm IMPRESSION: Right leg: Mild inflow disease throughout the interrogated vessels. Left leg: Mild inflow disease throughout the interrogated vessels. Limited evaluation of the abdominal aorta demonstrated no gross aneurysm or high peak systolic velocities BHANU Reference: - >1.4 = calcified vessels - 0.9 - 1.4 = normal - no significant arterial disease - 0.7 - 0.89 = mild peripheral arterial disease - 0.51 - 0.69 = moderate peripheral arterial disease - d 0.50 = severe peripheral arterial disease - < .30 = critical arterial disease Electronically signed by: Yossi Miller MD 11/22/2024 10:23 AM EDT
--- OUTSIDE RECORDS SUMMARY | 2024-11-22 07:55 | XMS_ITS | Data Portability ---
Author Organization [facility] Home Service Address [address] [place] [address] Assessment Encounter Date Assessment Date Assessment LastModified by Organization Details LastModified Time 06/07/2023 06/07/2023 Patient agreed and verbally consents to this audio and video Telehealth appt via a secure platform [email or web address] Not available 06/07/2023 11:11:05 06/14/2023 06/14/2023 Patient agreed and verbally consents to this audio and video Telehealth appt via a secure platform [email or web address] Not available 06/14/2023 11:27:27 06/21/2023 06/21/2023 Patient agreed and verbally consents to this audio and video Telehealth appt via a secure platform [email or web address] Not available 06/21/2023 14:32:42 Plan of Treatment Reminders Order Date Submit Date Provider Last Modified By Organization Details Last Modified Time Details Appointments ANNUAL EXAM 2024 02:15P M ADWOA BOCANEGRA Not available Not available Not available Lab None recorded. Referral sleep medicine referral 2023 024 [facility], [address], [place], [address], 05/08/2024 08:18:01 Procedures None recorded. Surgeries None recorded. Imaging None recorded. Medication Orders metoprolo l succinate ER 25 mg tablet,ex tended release 24 hr 2022 023 [email or web address] [facility], [address] [facility], [place], [address], 05/07/2024 11:31:00 metoprolo l succinate ER 50 mg tablet,ex tended release 24 hr 2022 [facility] [address] [place] [address], [address], 07/12/2023 15:46:16 hydrochlo rothiazid e 12.5 mg capsule 2022 024 [facility], [address] [place], [address], 05/07/2024 12:07:13 Patient TargetsNo targets recorded. Patient InstructionsNo instructions recorded. Reason for Referral Sleep Medicine Referral for Fatigue grinds teeth, hx of afib and resistant HTN with increased daytime sleepiness Referring Physician: Neil Handy, Internal Medicine, Encounter Date: 05/07/2024 Results Created Date Observation Date Name Description Value Unit Range Abnormal Flag Note LastModifiedBy Organization Detail LastModifiedTime 12/20/19 24 12/05/2023 US, renal arter y No observ ation record ed. [address] (Medical Records) [address] [place], [address], 12/22/2023 07:41:43 12/20/19 24 12/05/2023 US, renal arter y No observ ation record ed. [address] (Medical Records) [address] [place], [address], 12/22/2023 07:41:25 01/11/20 24 01/04/2024 vin can cardi olite stres s test (PROC ) No observ ation record ed. [email or web address] [facility] (Medical Records) [address] [place], [address], 01/12/2024 10:47:06 Result Notes None recorded. 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 22:26:55 Crohn's disease 94308659 Active 2020 Not Available [facility] 2 22:26:54 Inguinal hernia 407162079 Active 2020 pelvic, middle Not Available [facility] 2 22:26:54 Hypertens gilberto disorder 36020924 Active 2020 Not Available [facility] 2 22:26:54 Basal cell carcinoma of skin 174338885 Active 2020 Not Available [facility] 2 22:26:55 Polyp of colon 90501821 Active 2020 Not Available [facility] 2 22:26:55 Hyperchol esterolem ia 68293637 Active 2020 Not Available [facility] 2 22:26:55 Liver function tests outside reference range 112030036 Active 2020 Not Available [facility] 2 22:26:55 Non-alcoh olic fatty liver 330254749 Active 2020 Not Available [facility] 2 22:26:55 Tinnitus 47903374 Active 2020 Not Available [facility] 2 22:26:55 Cobalamin deficienc y 385301286 Active 2020 Not Available [facility] 2 22:26:55 Motion sickness 64280675 Active 2021 Not Available [facility] 2 22:26:54 Paroxysma l atrial fibrillat ion 826850675 Active 2022 ADWOA BOCANEGRA [address] [place] [address], [address], [facility] 3 10:46:40 Adrenal cyst 136608913 Active 2022 ADWOA BOCANEGRA [address] [place] [address], [address], [facility] 3 11:36:16 Dysuria 37447575 Active 2022 ADWOA BOCANEGRA [address] [place] [address], [address], [facility] 3 11:37:49 Atrial fibrillat ion 23159070 Active 2022 ADWOA BOCANEGRA [address] [place], [address], [facility] 3 10:17:59 Erectile dysfuncti on 831825940 Active 2022 ADWOA BOCANEGRA [address] [place], [address], [facility] 3 10:43:20 Essential hypertens ion 61059682 Active 2022 ADWOA BOCANEGRA [address] [place], [address], [facility] 3 10:46:50 Malignant hypertens ion 25015078 Active 2022 ADWOA BOCANEGRA [address] [place], [address], [facility] 3 10:01:59 Hypertens gilberto emergency 98752668792 9104 Active 2022 ADWOA BOCANEGRA [address] [place], [address], [facility] 3 10:04:44 Malignant essential hypertens ion 99669251 Active 2022 ADWOA BOCANEGRA [address] [place], [address], [facility] 3 11:26:23 Benign prostatic hyperplas ia 558204202 Active 2022 ADWOA BOCANEGRA [address] [place], [address], [facility] 3 11:28:14 Resistant hypertens gilberto disorder 19430226807 4109 Active 2022 ADWOA BOCANEGRA [address] [place], [address], [facility] 3 11:12:57 Grinding teeth 99795538 Active 2023 ADWOA BOCANEGRA [address] [place] [address], [address], [facility] 12:20:10 Fatigue 10718207 Active 2023 ADWOA BOCANEGRA [address] [place] [address], [address], [facility] 12:21:35 Colitis 60172397 Active 2023 ADWOA BOCANEGRA [address] [place] [address], [address], [facility] 12:24:00 Notes:Some problems listed i n Documents: #[id number], #[id number] could not be added to this patient's chart. Please review these documents and add these problems to the patient's chart manually as needed. Problem Notes None recorded. Procedures Surgical History Date Name Laterality Status Provider Name and Address Organization Details Recorded Time 05/02/20 23 Colonoscopy completed Kevin Good DO [address] [place] [address], [address], [facility] 05/03/2023 11:18:22 05/02/20 23 endoscopy completed Kevin Good DO [address] [place] [address], [address], [facility] 05/03/2023 11:18:58 Imaging Results Imaging Date Name Status LastModified by Organiz ation Details LastModified Time 12/05/2023 US, renal artery completed [address] (Medical Records) [address] [place], [address], 12/22/2023 07:41:43 12/05/2023 US, renal artery completed [address] (Medical Records) [address] [place], [address], 12/22/2023 07:41:25 01/04/2024 lexiscan cardiolite stress test (PROC) completed [email or web address] [facility] (Medical Records) [address] [place], [address], 01/12/2024 10:47:06 Procedure Notes None recorded. Medical Equipment None Reported. Allergies Allergen ID Allergen Name Allergen Category Reaction Reaction Severity Criticality Documentation Date Start Date Code Code System Note Provider Name and Address Organization Details Recorded Time 4646 Flagyl medicatio n Not available Not available Not available 02/09/2021 6 RxNorm Concepcion mcdermott [facility] 1 15:12:14 4647 Pentasa medicatio n Not available Not available Not available 02/09/2021 5 RxNorm Concepcion mcdermott [facility] 1 15:12:20 7089 amlodipin e medicatio n swelling Not available Not available 02/20/2023 29214 Rx[facility] 09:56:38 7090 hydralazi ne medicatio n Not available Not available Not available 02/20/2023 5470 RxNorm [facility]a [facility] 09:56:55 7091 clonidine medicatio n Not available Not available Not available 02/20/2023 2599 RxNorm Jennysandhya Zaldivar [facility] 3 09:57:19 7092 nifedipin e medicatio n Not available Not available Not available 02/20/2023 7417 RxNorm [facility] 3 09:58:41 7093 spironola ctone medicatio n abdominal pain nausea Not available Not available Not available 02/20/2023 9997 RxNorm NEIL HANDY, PA [address] [place], [address], [facility] 3 11:23:02 7449 prazosin medicatio n Not available Not available Not available 05/23/2023 8629 RxNorm NEIL HANDY, PA [address] [place], [address], [facility] 3 11:25:21 7450 doxazosin medicatio n Not available Not available Not available 05/23/2023 48763 RxNorm ADWOA BOCANEGRA [address] [place], [address], [facility] 11:25:28 Medications Name Sig Start Date Stop Date Status Note LastModified by Organization Details LastModified Time amoxicillin 500 mg capsule TAKE 1 CAPSULE BY MOUTH THREE TIMES DAILY UNTIL GONE active Not Available Not Available No t Available atorvastati n 40 mg tablet TAKE 1 TABLET BY MOUTH IN THE EVENING active Not Available Not Available No t Available carvedilol 6.25 mg tablet Take 1 tablet twice a day by oral route for 30 days. 05/17 completed Not Available Not Available Not Available doxycycline hyclate 100 mg capsule TAKE 1 CAPSULE BY MOUTH TWICE DAILY WITH FOOD AND WATER 02/20 completed Not Available Not Available Not Available carvedilol 12.5 mg tablet TAKE 1 TABLET BY MOUTH TWICE DAILY MUST TAKE WITH A MEAL/FOOD active Not Available Not Available No t Available labetalol 200 mg tablet TAKE 1 TABLET BY MOUTH TWICE DAILY 02/20 completed Not Available Not Available Not Available clonidine 0.1 mg/24 hr weekly transdermal patch APPLY 1 PATCH TOPICALLY ONCE A WEEK 02/20 completed Not Available Not Available Not Available irbesartan 150 mg-hydrochl orothiazide 12.5 mg tablet TAKE 1 TABLET BY MOUTH TWICE DAILY active Not Available Not Available No t Available metoprolol succinate ER 50 mg tablet,exte nded release 24 hr TAKE 1 TABLET BY MOUTH TWICE DAILY 07/12 completed Not Available Not Available Not Available famotidine 40 mg tablet TAKE 1 TABLET BY MOUTH ONCE DAILY FOR 90 DAYS active Not Available Not Available No t Available amlodipine 2.5 mg tablet TAKE 1 TABLET BY MOUTH TWICE DAILY 11/22 completed Not Available Not Available Not Available nifedipine ER 30 mg tablet,exte nded release TAKE 1 TABLET BY MOUTH ONCE DAILY 02/20 completed Not Available Not Available Not Available chlorthalid one 25 mg tablet TAKE 1 TABLET BY MOUTH ONCE DAILY FOR 30 DAYS 05/19 completed Not Available Not Available Not Available amlodipine 5 mg tablet TAKE 1 TABLET BY MOUTH EVERY NIGHT AT BEDTIME 11/22 completed Not Available Not Available Not Available nicardipine 20 mg capsule Take 1 capsule 3 times a day by oral route for 30 days. 05/30 completed Not Available Not Available Not Available spironolact one 25 mg tablet Take 1 tablet every day by oral route for 30 days. 05/23 completed Not Available Not Available Not Available dexamethaso ne 1 mg tablet TAKE 1 TABLET BY MOUTH ONCE FOR 1 DOSE. TAKE THE NIGHT BEFORE BLOODWORK 04/08 completed Not Available Not Available Not Available diltiazem CD 300 mg capsule,ext ended release 24 hr TAKE 1 CAPSULE BY MOUTH ONCE DAILY FOR 90 DAYS 02/20 completed Not Available Not Available Not Available cephalexin 500 mg capsule TAKE 1 CAPSULE BY MOUTH EVERY 8 HOURS FOR 7 DAYS 05/07 completed Not Available Not Available Not Available cyanocobala min (vit B-12) 1,000 mcg/mL injection solution INJECT 1 ML INTRAMUSC ULARLY ONCE EVERY MONTH DIRECTED 2024 active Not Available Not Available Not Avai lable Gentle Laxative (bisacodyl) 5 mg tablet,sandra yed release TAKE 4 TABLETS BY MOUTH A ONE TIME DOSE BEFORE BEGINNING BOWEL PREP SOLUTION 02/20 completed Not Available Not Available Not Available irbesartan 300 mg-hydrochl orothiazide 12.5 mg tablet TAKE 1 TABLET BY MOUTH ONCE DAILY 11/22 completed Not Available Not Available Not Available lansoprazol e 30 mg capsule,del ayed release TAKE 1 CAPSULE BY MOUTH ONCE DAILY active Not Available Not Available No t Available guanfacine 1 mg tablet TAKE 1 TABLET BY MOUTH ONCE DAILY FOR 30 DAYS 04/26 completed Not Available Not Available Not Available metoprolol tartrate 50 mg tablet TAKE 1 TABLET BY MOUTH QD DAILY 01/05 completed Not Available Not Available Not Available hydrochloro thiazide 12.5 mg capsule TAKE 1 CAPSULE BY MOUTH TWICE DAILY DIRECTED 05/07 completed Not Available Not Available Not Available BD Luer-Tatiana Syringe 3 mL 25 gauge x 1 USE 1 SYRINGE MONTHLY 2024 active Not Available Not Available Not Avai lable doxazosin 4 mg tablet TAKE 1 TABLET BY MOUTH ONCE DAILY 05/10 completed 1/2 tab for a week Not Available Not Available Not Available hydralazine 50 mg tablet TAKE 1 TABLET BY MOUTH TWICE DAILY 11/22 completed Not Available Not Available Not Available mupirocin 2 % topical ointment APPLY OINTMENT TOPICALLY TO AFFECTED AREA TWICE DAILY UNTIL HEALED 02/20 completed Not Available Not Available Not Available metoprolol succinate ER 25 mg tablet,exte nded release 24 hr TAKE 1 TABLET BY MOUTH TWICE DAILY 05/07 completed Not Available Not Available Not Available irbesartan 150 mg tablet TAKE 1 TABLET BY MOUTH TWICE DAILY 05/07 completed Not Available Not Available Not Available scopolamine 1 mg over 3 days transdermal patch Apply 1 patch every 72 hours by transderm al route for 30 days. 04/08 completed Not Available Not Available Not Available irbesartan 300 mg tablet TAKE 1 TABLET BY MOUTH ONCE DAILY 05/07 completed Not Available Not Available Not Available prazosin 2 mg capsule Take 1 capsule twice a day by oral route as needed for 30 days. 05/23 completed Not Available Not Available Not Available oxycodone 5 mg tablet TAKE 1 TABLET BY MOUTH EVERY 4 HOURS NEEDED FOR PAIN active Not Available Not Available No t Available valsartan 160 mg-hydrochl orothiazide 25 mg tablet TAKE 1 TABLET BY MOUTH EVERY DAY FOR 30 DAYS 05/01 completed Not Available Not Available Not Available syringe with needle 1 mL 25 gauge x 1 INJECT 1 ML INTRAMUSC ULARLY ONCE EVERY MONTH 02/09 completed Not Available Not Available Not Available tadalafil 5 mg tablet TAKE 1 TABLET BY MOUTH ONCE DAILY active hold Not Available Not Available No t Available tadalafil 20 mg tablet Take 1 tablet every day by oral route for 12 days. 05/23 completed Not Available Not Available Not Available chlorhexidi ne gluconate 0.12 % mouthwash RINSE WITH 15ML FOR 30 SECONDS AND SPIT, USE TWICE DAILY AFTER BRUSHING AND FLOSSING . active Not Available Not Available No t Available valsartan 320 mg-hydrochl orothiazide 25 mg tablet Take 1 tablet every day by oral route for 30 days. 05/01 completed Not Available Not Available Not Available BD Integra Syringe 3 mL 25 gauge x 1 USE 1 SYRINGE EVERY MONTH 07/22 completed Not Available Not Available Not Available hydrochloro thiazide 12.5 mg tablet TAKE 1 TABLET BY MOUTH ONCE DAILY FOR 90 DAYS 05/10 completed Not Available Not Available Not Available GaviLyte-G 236 gram-22.74 gram-6.74 gram-5.86 gram oral solution USE DIRECTED 02/20 completed Not Available Not Available Not Available Eliquis 5 mg tablet TAKE 1 TABLET BY MOUTH TWICE DAILY active Not Available Not Available No t Available Vitals Date Recorded Body height Body mass index (BMI) Body weight Heart rate Oxygen saturation Oxygen saturation in Arterial blood by Pulse oximetry Systolic blood pressure Diastolic blood pressure Provider Name and Address Organization Details Last Updated DateTime 3 173.99 cm 30 kg/m2 45794.4 7 g 67 /min 97 % 97 % 140 mm[Hg] 70 mm[Hg] Jenny Zaldivar [facility] 3 16:08:34 Date Recorded Body height Body mass index (BMI) Body weight Heart rate Oxygen saturation Oxygen saturation in Arterial blood by Pulse oximetry Systolic blood pressure Diastolic blood pressure Provider Name and Address Organization Details Last Updated DateTime 4 173.99 cm 28.5 kg/m2 61154.9 1 g 56 /min 97 % 97 % 162 mm[Hg] 86 mm[Hg] Marcie Hensley [facility] 4 11:32:49 Social History Question Answer Notes LastModified by Huan Xiong Details LastModified Time Tobacco Smoking Status Former Smoker Quit 30 years ago Vidhi mcdermott [facility] 01/05/2022 11:23:50 What Is Your Level Of Alcohol Consumption? Occasional Information not available 02/19/2021 What Is Your Level Of Caffeine Consumption? Heavy 2 Large Per Day Information not available 02/19/2021 Which Illicit Or Recreational Drugs Have You Used? Canabis Information not available 02/19/2021 What Was The Date Of Your Most Recent Tobacco Screening? 05/07/2024 [email or web address] Information not available 05/07/2024 Do You Use Any Illicit Or Recreational Drugs? Yes [email or web address] Information not available 05/19/2023 Sex: Unknown Functional Status Question Answer Note LastModified by Huan Xiong Details LastModified Time What is your exercise level? Occasional Information not available 02/19/2021 Mental Status None recorded. Family History Nothing Reported. Medical History No medical history recorded. Immunizations Vaccine Type Date Status Note Provider Nam e and Address Organization Details Recorded Time COVID-19, mRNA, LNP-S, PF, 30 mcg/0.3 mL dose [address] [facility] 05/23/2023 06:41:19 COVID-19, mRNA, LNP-S, PF, 30 mcg/0.3 mL dose [address] [facility] 05/23/2023 06:41:19 COVID-19, mRNA, LNP-S, PF, 30 mcg/0.3 mL dose [address] [facility] 05/23/2023 06:41:19 zoster live [address] [facility] 05/23/2023 06:41:19 Influenza, split virus, quadrivalent, preservative [address] [facility] 05/23/2023 06:41:19 SARS-COV-2 (COVID-19) vaccine, UNSPECIFIED 2 completed Marcie mcdermott [facility] 05/07/2024 09:50:17 SARS-COV-2 (COVID-19) vaccine, UNSPECIFIED 3 completed Marcie mcdermott, [facility] 05/07/2024 09:50:26 SARS-COV-2 (COVID-19) vaccine, UNSPECIFIED 4 completed Marcie mcdermott [facility] 05/07/2024 09:50:32 pneumococcal, unspecified formulation 4 completed Marcie mcdermott [facility] 05/07/2024 09:50:51 influenza, unspecified formulation 2 completed Marcie mcdermott [facility] 05/07/2024 09:51:04 influenza, unspecified formulation 3 completed Marcie mcdermott [facility] 05/07/2024 09:51:10 influenza, unspecified formulation 4 completed Marcie mcdermott [facility] 05/07/2024 09:51:17 zoster, unspecified formulation 3 completed Marcie mcdermott [facility] 05/07/2024 09:51:35 zoster, unspecified formulation 3 completed Marcie Hensley baldemar [facility] 05/07/2024 09:51:41 Past Encounters Encounter ID Performer Location Encounter Start Date Encounter Closed Date Diagnosis/Indication Diagnosis SNOMED-CT Code Diagnosis ICD10 Code Diagnosis Note [id number] Kevin Good [facility] [address] [facility] [address] 02/19/2021 10:27:04 02/19/2021 11:09:42 Mcdaniel's esophagus 522165238 K22.70 stable Cobalamin deficiency 190 337308 E53.8 stable Crohn's disease 48824987 K50.90 stableno recent flare ups per patient Hypercholesterolemia 136 07084 E78.00 will need recheck of his blood work Hypertensive disorder 38 030115 I10 BP elevated Liver func tion tests outside reference range 376215243 R94.5 due to fatty liver Non-alcoho lic fatty liver 601788289 K76.[address] Epiploic appendagitis 14 14772345 0271180 K38.[address] per radiologis t, but has fu with specialist to discuss findingswa nts specialist to do MRI Foot pain 92974679 M79.6 73 will fu with foot XR Pain of ri ght shoulder joint 3497088189 9592660 M25.511 fu with ortho [id number] Kevin Good [facility] [address] [facility] [address] 01/05/2022 11:15:06 01/05/2022 12:21:32 Crohn's disease 09061735 K50.90 stable and under control Active or passive immunization 977240181 Z23 utd Adult heal th examination 976802399 Z00.00 overall is stable and unfortunat osmin is doing poorly with his bp meds causing issues Hypertensive disorder 38 029802 I10 given side effects of bradycardi a and pre syncope as well as fatigue and EDwe will try a once a day version metoprolol succ er 50 [id number] Kevin Good [facility] [address] [facility], [place] [address] 01/21/2022 09:02:43 01/21/2022 10:04:03 Hypertensive disorder 15809669 I10 given side effects of bradycardi a and pre syncope as well as fatigue and EDwe will try a once a day version metoprolol succ er 25 at bedtime now and will cont the new lower dose for now Abdominal aortic aneurysm screening 790597423 Z13.6 [id number] Kevin Good [facility] [address] [facility],[place] [address] 03/11/2022 09:09:07 03/11/2022 09:57:50 Hypertensive disorder 91826197 I10 feels much better and states that he has much more energyno longer has large spiking readings/. he is much more active now we will stop the metoprolol completely and increase the irbesartan to 300mg/12.5 mg Active or passive immunization 273208960 Z23 advised due for Tdap and pneumo Depression screening 171 013381 Z13.31 PHQ2 normal today Motion sickness 73931375 T75.3XXD [id number] Kevin Good [facility] [address] [facility], [place] [address] 04/08/2022 12:07:14 04/08/2022 13:01:12 Hypertensive disorder 63570519 I10 feels overall that he is better but the bp is still running a bit too highwe will have him Hypercholesterolemia 136 66535 E78.00 Liver func tion tests outside reference range 952990318 R94.5 as noted is stable Non-alcoho lic fatty liver 836108384 K76.0 stable and no issue [id number] Kevin Good [facility] [address] [facility] [address],[place] [address] 05/09/2022 14:37:14 05/09/2022 16:16:35 Hypertensive disorder 26312303 I10 adjusted back to the BID irbesartan /HTCZ Advance care planning 71 1715337 Z71.89 advised [id number] Kevin Davis Good [facility] [address] [facility] [address],[place] [address] 11/22/2022 10:21:05 11/23/2022 10:29:12 Hypercholesterolemia 32298788 E78.2 will need recheck of his blood work Hypertensive disorder 38 244085 I10 BP is good but now having low low readings with higher heart ratethe patient needs a new cardiowas seeing someone in [place] who will no longer care for him due to him being out of state Crohn's disease 88966077 K50.00 stableno recent flare ups per patient Paroxysmal atrial fibrillation 574545841 I48.0 will send to new cardio [id number] Kevin CallesBenjamín Good [facility] [address] [facility] [address],[place] Christal [facility] [place] [address] 02/20/2023 09:49:57 02/20/2023 15:32:34 Active or passive immunization 646627235 Z23 discussed Adult heal th examination 623122083 Z00.00 discussed his BPcurrent medication sand current treatment plan Mcdaniel's esophagus 3029 71220 K22.70 stable Hypercholesterolemia 136 90850 E78.2 will need recheck of his blood work Hypertensive disorder 38 109439 I10 will stop labetalol and restart at 75 mg of metoprolol hold spironolac tone to see what his BP does with the irbesartan /HTCZ and metoprolol Paroxysmal atrial fibrillation [id number] I48.0 will send to new cardio(adv ised Dr. Jones) Atrial fibrillation 4943 6004 I48.0 cont eliquisdo not start statin until levels are drawn [id number] Kevin Davis Good DO [facility] Internal Medicine [address],[place] [address] 03/06/2023 10:05:44 03/06/2023 11:45:35 Atrial fibrillation [id number] I48.0 cont eliquisdo not start statin until levels are drawn Mcdaniel's esophagus 3029 85382 K22.70 stable Hypercholesterolemia 136 09983 E78.2 will need recheck of his blood work Erectile dysfunction 860 565932 N52.01 will have him try tadalafil Essential hypertension 87289551 I10 split the irbesartan and hydrochlor othiazide (only use HTCZ once per day)drop metoprolol to 50 mgmay be able to do 50 mg and 12.5 with meto tartrate so he can split it at the 25 mg [id number] Kevin Good [facility] Internal Medicine [address] [facility],[place] [address] 04/26/2023 08:59:10 04/26/2023 11:36:42 Hypertensive disorder 24658550 I10 all meds listed as patient is taking themwill read half the dose of the doxazosin to take over for the cialis Erectile dysfunction 860 812068 N52.01 works well [id number] Kevin Good [facility] Internal [facility] [address] [facility],[place] [address] 05/10/2023 09:36:22 05/10/2023 13:43:59 Mcdaniel's esophagus [id number] K22.70 irritated after endoscopef ound polyps in the stomachcol on looked good Malignant hypertension 75412674 I10 will reduced the metoprolol over time and start carvedilol hold the spironolac tone (causes too many side effects) [id number] Kevin Good [facility] Internal Medicine [address] [facility],[place] [address] 05/19/2023 09:36:57 05/19/2023 12:08:55 Malignant hypertension 10887180 I10 will reduced the metoprolol over time and start carvedilol hold the spironolac tone (causes too many side effects) Hypertensi ve emergency [id number] 65084 I16.1 will start PRN, given instructio ns how to take medication and whenrestar t HTCZ 12.5 mg these will be for peaks Hypertensive disorder 38 462751 I10 all meds listed as patient is taking themwill read half the dose of the doxazosin to take over for the cialis [id number] Kevin Good [facility] Internal Medicine [address] [facility],[place] [address] 05/23/2023 10:53:26 05/23/2023 12:09:15 Malignant essential hypertension 68553496 I10 BP works the best without sudden drops, keeps his BP between 120 to 130 without side effectswil l try to get it covered by his insurance as an alternativ e [id number] Kevin Good [facility] Internal Medicine [address],[place] [address] 05/30/2023 15:51:24 05/30/2023 17:04:07 Atrial fibrillation 74778892 I48.0 cont eliquis Essential hypertension 45375387 I10 adjusted treatment agian for patientwil l fu in a week Hypertensive disorder 38 653023 I10 all meds listed as patient is taking themwill read half the dose of the doxazosin to take over for the cialis [id number] Kevin Good [facility] Internal Medicine [address] [facility] [address],[place] [address] 06/07/2023 08:20:30 06/07/2023 11:38:09 Resistant hypertensive disorder [id number] 35711 I1A.0 seeing cardio [place] in [place] when he goesthi week in June () Dr. Court [facility] to the [address] [place] [address] Atrial fibrillation 4943 6004 I48.0 cont eliquis Hypertensive disorder 38 095952 I10 all meds listed as patient is taking themwill read half the dose of the doxazosin to take over for the cialis [id number] Kevin Good DO [facility] Internal Medicine [address] [facility] [address],[place] [address] 06/14/2023 08:47:09 06/16/2023 08:50:52 Essential hypertension 87483431 I10 adjusted treatment again for patientwil l f/u in a week [id number] Kevin Good DO [facility] Internal Medicine [address],[place] [address] 06/21/2023 08:24:46 06/23/2023 09:46:14 Essential hypertension 03403869 I10 cont current medication s Atrial fibrillation 4943 6004 I48.0 cont eliquis [id number] DO [facility] [address],[place] [address] 05/07/2024 11:23:54 05/07/2024 14:24:16 Depression screening 265538370 Z13.31 SCREENING NEGATIVE Colitis 44692121 K50.00 stable Atrial fibrillation 4943 6004 I48.0 cont eliquis Grinding teeth 80504319 R46.89 will set up with CPAP Fatigue 39222198 R53.83 agreed to sleep study Health Concerns Section Related Observation LastModified by Organization Detai ls LastModified Time None Recorded Concern Status LastModified by Organization Details LastModified Time None Recorded Advance Directives Directive None Recorded Payers Encounter Date Sequence Insurance Name Policy Number Policy Allen Covered Member ID Allen Member ID Guarantor Name 05/30/2023 1 [place] [employer] Jeremie N Shilpi [id number] Jeremie N Shilpi 05/30/2023 2 [place] [id number] Jeremie N Shilpi [id number] Jeremie N Shilpi 06/07/2023 1 [place] [place] Jeremie N Shilpi [id number] Jeremie N Shilpi 06/07/2023 2 [place] [id number] Jeremie N Shilpi [id number] Jeremie N Shilpi 06/14/2023 1 [place] [employer] Jeremie N Shilpi [id number] Jeremie N Shilpi 06/14/2023 2 [place] [id number] Jeremie N Shilpi [id number] Jeremie N Shilpi 06/21/2023 1 [place] [employer] Jeremie N Shilpi [id number] Jeremie N Shilpi 06/21/2023 2 [place] [id number] Jeremie N Shilpi [id number] Jeremie Dobbins 05/07/2024 1 [place] [employer] Jeremie Dobbins [id number] Jeremie Dobbins 05/07/2024 2 [place] [id number] Jeremie Dobbins [id number] Jeremie Dobbins Notes Date Note Type Note Provider Name a nd Address Organization Details Recorded Time 3 text/html BP f/u the patient reports he has been on the HTCZ, irbesartan, metoprolol (12.5, 300, 50)the patient reports that he he started with just the htcz and irbesartan and metoprolol was at 174/80, added the tadalafil 20 he already hadcame down to 160/70 the patient reports that then he started the tadalafil 5 mg, dropped down 92/80, felt off, but came back up quick enough and felt great the patient took tadalafil 5 mg again, keeping his BP from 130/80 to 92/76the patient took 25 mg of HTCZ the next day in the morning (first BP reading was 169/83), dropped down to 130/80 and was doing good, came back again but then dropped back down to 125/80felt great was able to leaf blow rather wellno issues with activity the patient and I discussed going back up to the 100 mg of the metoprolol for his afib since it kept giving him warnings about it on his machine agreed to take HTCZ in 12.5 MG BID instead of all in the morningalso start 50 mg metoprolol BID as welltry to start some at night to keep it from having the big spikes ADWOA BOCANEGRA [address] [facility], [place], [address], [place] [facility] Internal Medicine 05/30/2023 16:51:04 3 text/html f.u BP recheck tele-med phone callpatient consents to phone call did HTCZ in AM and metoprolol in AMthen 11 pm took second dose HTCZHR 55, 165.93, dropped to 119/61, HR 61the patient reports that when the patient reports that his HR drops causing the heart rate monitor to go off the patients' HR in the AM after coffee, HR 50, BP 172/82with chest tightness the patient 178/97 toward 6 pm the patient took the tadalafil that daynext day felt better, and BP was much improved has been taking the tadalafil every other day the patient tired stopping the tadalafillow HR, low BP 126/89, 136/97, higher diastolic is causing irregular heart rate no changesHTCZ and metoprololnumbers were stable all day long (no tadalafil)06/04 highest level, no symptoms, did welltook a second metoprolol, 25 mg at PM with HTCZ BP 114/55, HR 68 caused irregular heart rate felt poorly 06/06doing good all daythen spiked up to 182/102reports he was doing leaves then came in and had some beers which would have triggered it today only 50 mg metoprolol and 12.5 HTCZin the 150sHR dropped to 53, irregular heart beatright before this call HR 51, BP 174/90 seems when his BP drops within normal limits, his HR gets irregular lowest HR 47 during rest average 43 to 94 todayyesterday 45 to 106day before 47 to 114 (high reading caused by activity, calms down quickly) no longer having the high high BP in the morning with the night time doses > have tried clonidine, nifedipine, amlodipine, prazosin, doxazosin, lisinopril, spironolactone, valsartan, losartan, nicardipine, chlorthalidone, carvedilol, diltiazem, guanfacine, hydralazine, labetalol with either no effect, too strong or too many sides continue two doses of metoprolol 50 mg BID and HTCZ 12.5 BID and the one dose of irbesartan 300 mg hold tadalafil ADWOA BOCANEGRA [address] [facility], [place], [address], [facility] Internal Medicine 06/07/2023 11:30:15 3 text/html BP f/u telemed phone call patient consents to phone call the patient is averaging higher with his BP and lower with his HR but has been feeling okaythe patient is 136/88, 62, doing well, did end up with an irregular heart rate everything sent down to cardio in [place] no irregular heartbeat todaythe patient reports his BP was 165/95 with HR 58 no feeling like he is going to pass or light-headedness average is 50 to 100 BPM todayaverage is 47 to 73 yesterdayaverage is 48 to 101 two days agoaverage is 40 to 108 three days ago taking the 75 mg of metoprolol 50 mg and 25 mg in the afternoondo the 25 mg BID instead ADWOA BOCANEGRA [address] [place], [address], [facility] Internal Medicine 06/14/2023 11:30:46 3 text/html BP f/u tele-med phone callpatient consents to phone call the patient had a good week, the patient has normal heart rate2'clock on Monday his BP kept going up, the patient took a tadalafil 20 mg and his BP dropped 83/61 and eventually got back up, did have an alert of indicating abnormal rhythmthe patient reports that he then had really good BP 116/71 only one /71 yesterday, irregular heart beat with chest tightness 136/80 average today, is getting the alert for the irregular heart rate but no symptoms, feels good discussed f/u with cardio in [place], all info already sent there ADWOA BOCANEGRA [address] [place], [address], [facility] Internal Medicine 06/21/2023 14:37:04 4 text/html c/o would like sleep study afib: stablewas placed on atorvastatin medication working well for [facility] corrected in chartBP is great at home and at their office grinding teeth per dentist + the afib and hx of resistant HTN agreed to go forward with a sleep studywill submit for the patient no recent colitis infection having his molar removed this monday ADWOA BOCANEGRA [address] [place], [address], [facility] Internal Medicine 05/07/2024 12:40:00
== END 2024-11-22 07:51 | disposition home or self-care (01) ==
LOC: HO.US 07:50
PROVIDERS: PCP Internal Medicine; Visit Provider Surgery Vascular Surgery
DX: I73.9 Peripheral vascular disease, unspecified (principal)
CPT/HCPCS: 76706; 93925

== ENCOUNTER → 2024-11-22 07:51 | Outpatient (BNV) | payer MEDICARE, SELFPAY | PROVIDERS: PCP Internal Medicine; Visit Provider Radiology Diagnostic Radiology | DX: I73.9 Peripheral vascular disease, unspecified (principal) | CPT/HCPCS: 76706; 93925 ==

== ENCOUNTER 2024-11-28 13:14 | Outpatient (AMB) | payer MEDICARE, SELFPAY ==
--- NOTE | 2024-11-28 13:18 | MHC.OFFVIS ---
Vital Signs 11/28/24 13:20 Height 5 ft 8 in Weight 193 lb 1.999 oz BMI 29.4 BP 122/70 Blood Pressure Location Lt brachial Position Sitting Pulse 64 Pulse Source Monitor Intake Visit Reasons: f/up News Specialist Required: No Accompanied by: Self / Same As Patient Allergies amlodipine Allergy (Severe, Verified 05/16/24 13:35) Swelling Clonidine Allergy (Severe, Uncoded 11/23/23 11:02) Hives Hydralazine Allergy (Mild, Uncoded 11/23/23 11:02) Nausea and Vomiting Nefedipine Allergy (Mild, Uncoded 11/23/23 11:02) Numbness parzonsin Allergy (Mild, Uncoded 11/23/23 11:02) Unknown Tadalafil Allergy (Mild, Uncoded 11/23/23 11:02) Unknown Medication List - Last Reconciled 11/28/24 by Daniel Pierce MD apixaban (Eliquis) 5 mg PO BID atorvastatin 40 mg PO QPM carvedilol 12.5 mg PO BID cyanocobalamin (vitamin B-12) 1,000 mcg subcut DAILY famotidine 40 mg PO DAILY irbesartan-hydrochlorothiazide 150-12.5 mg 1 tab PO BID 90 days lansoprazole 30 mg PO DAILY HPI Comments Details: Jeremie returns for follow-up. In the past, was seen regarding uncontrolled hypertension. He has tried various medications over time and has had numerous issues. He had previously brought a file with extensive list of meds tried, side effects etc.. With amlodipine he had severe ankle swelling. With hydralazine, he had diarrhea, vomiting and various other issues. With doxazosin, had lightheadedness. With clonidine patch, he had hives on his face and body. With nifedipine, he had pins and needles. With labetalol, labile readings. Steep blood pressure drop. With prazosin, again blood pressure went too low. Current meds include Irbesartan/Hydrochlorothiazide/Coreg. Otherwise, there is one episode of atrial fibrillation treated in [place], May 2022. He states he had other Holter through cardiology in [place] and told to have asymptomatic episodes. He remains on anticoagulation. He states that he has got allergy issues and with the change of season, he has been getting some shortness of breath. Otherwise, no new concerns. No angina. Blood pressures self seems better. Continues to take statins reluctantly. [facility], LAT[facility] Medical History Essential hypertension PAF (paroxysmal atrial fibrillation) Family History Father High blood pressure History of multiple strokes Social History Household Members: Spouse Alcohol intake: current Patient Tobacco Use Status: Never used Tobacco Review of Systems Const Denies chills, Denies fatigue, Denies fever(s), Denies frequent falls, Denies weakness, Denies weight gain and Denies weight loss ENT Denies dizziness Card Denies chest pain, Denies leg edema, Denies lightheadedness, Denies palpitations, Denies dyspnea and Denies dyspnea on exertion Resp Denies cough, Denies dyspnea and Denies dyspnea on exertion GI Denies hematochezia Musc Denies abnormal gait, Denies muscle weakness, Denies numbness, Denies radiating pain into limb and Denies tingling Neuro Denies abnormal gait, Denies dizziness, Denies frequent falls, Denies numbness, Denies tingling and Denies weakness Endo Denies fatigue and Denies palpitations Physical Exam Vital Signs: Last Vital Signs Pulse 64 11/28/24 13:20 BP 122/70 11/28/24 13:20 BMI result Body Mass Index 29.4 Const General: comfortable and no acute distress Orientation/consciousness: patient oriented x3 HEENT Other: Unremarkable Head: Yes normal to inspection Neck Neck: Yes normal visual inspection Chest Chest palpation & inspection: normal inspection of the chest Resp Auscultation: clear to auscultation bilaterally Cardio Palpation: normal PMI Heart sounds: S1 normal heart sound present, S2 normal heart sound present, no gallops, no murmurs and no rubs GI Palpation (GI): Soft to palpation Back/Spine/Pelvis Other: unremarkable Skin General skin exam: no rashes or lesions noted Neuro General: patient oriented x3 Extrem General: Yes normal to inspection Psych Mental Status: mental status grossly normal Assessment & Plan Assessment & Plan (1) Essential hypertension: Code(s): I10 - Essential (primary) hypertension Category: Medical Plan: Intolerance to various medications including amlodipine, hydralazine, doxazosin, clonidine patch, nifedipine, labetalol, prazosin. He is on irbesartan/hydrochlorothiazide/carvedilol. Blood pressure seems much improved. Not clear if there was any issue with Spironolactone in the past, possibly another agent for future. Per labs brought by patient in past, N terminal proBNP 196. Renin level <0.6. Potassium 4.2. Creatinine 0.8. High sensitivity troponin within normal limits. Renin, metanephrine, normetanephrine, aldosterone within normal limits. Recheck labs. In the CTA, no significant renal artery stenosis. (2) PAF (paroxysmal atrial fibrillation): Code(s): I48.0 - Paroxysmal atrial fibrillation Category: Medical Plan: In the last Holter, underlying rhythm is sinus with an average rate of 73/Min. Frequent PACs with a burden of 3%. Short supraventricular runs. EKG from [place], 2021-atrial fibrillation with rapid ventricular rate at 133/Min. Nonspecific ST-T changes. Beta-blockers and anticoagulation. (3) NSVT (nonsustained ventricular tachycardia): Code(s): I47.29 - Other ventricular tachycardia Category: Medical Plan: Per cardiology notes in [place], a prior Holter had shown 11 beat run of NSVT. Continue beta-blockers as above. In the ETT, he was able to reach 10 METS capacity with shortness of breath. Reduced heart rate response but he was on beta-blockers. No EKG evidence of ischemia. Perfusion was also unremarkable. Prior ETT at [facility] 2022-attained 7.8 METS. No EKG evidence of ischemia. No angina. Frequent PACs during exercise. Echocardiogram from 2022-LVEF of 65-70%; mild diastolic dysfunction and mild mitral regurgitation. No specific implications and just stay on beta-blockers. 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 Followed up at vascular. Continue statins. Follow-up lipids. (5) Shortness of breath: Code(s): R06.02 - Shortness of breath Category: Medical Plan: Most likely related to allergies extra. Less likely cardiomyopathy but we can recheck an echocardiogram. Check cardiac BNP. Plan Discussion Notes I discussed with the patient the need for an echocardiogram to assess cardiac function due to ongoing dyspnea, emphasizing the absence of classical cardiac chest pain raising immediate cardiac risk. I explained the importance of re-evaluating cholesterol via a lipid panel given the statin therapy and time since last testing. We discussed alternatives to oral statins, including injections, regarding preferences for those intolerant to statins. Risks, benefits, and alternatives were laid out, and the patient agreed to proceed with diagnostic evaluations. The patient showed understanding and agreed to follow through with prescribed testing. Consent obtained. Patient was informed and verbally consented to the use of an ambient scribe for clinic note documentation during this visit. Orders: Orders CA echo transthoracic complete Today R06.02 - Shortness of breath Comprehensive Met. Panel Today I73.9 - Peripheral vascular disease, unspecified Lipid Panel Today E78.5 - Hyperlipidemia, unspecified, I73.9 - Peripheral vascular disease, unspecified B Type Natriuretic Peptide Today I50.9 - Heart failure, unspecified Patient Instructions: - Schedule and complete the echocardiogram as advised. - Get the blood tests done, including the lipid panel as instructed. - Monitor symptoms; if dyspnea worsens or new symptoms develop, seek care. - Discuss statin therapy side effects with healthcare provider. - Keep follow-up appointments to review test results and adjust the treatment plan. - Limit exposure to allergens when possible. Coding Level of Care Code Est Pt Level 4 (47399) Complex EM visit Add On G2211 Diagnoses Essential hypertension I10 PAF (paroxysmal atrial fibrillation) I48.0 NSVT (nonsustained ventricular tachycardia) I47.29 Iliac artery dissection I77.72 Shortness of breath R06.02
[2024-11-28 13:20] VITALS: BP 122/70; PULSE 64; BMI 29.4
--- OUTSIDE RECORDS SUMMARY | 2024-11-28 13:48 | XMS_ITS | Data Portability ---
Author Organization [facility], Home Service Address [address] [place] [address] Assessment Encounter Date Assessment Date Assessment LastModified [...] recorded. Referral sleep medicine referral 2023 024 [facility], [address] [place] [address] 101, [place], [address], 05/08/2024 08:18:01 Procedures None recorded. Surgeries None recorded. Imaging None recorded. Medication Orders metoprolo l succinate ER 25 mg tablet,ex tended release 24 hr 2022 023 [email or web address] [facility], [address] [facility], [place], [address], 05/07/2024 11:31:00 metoprolo l succinate ER 50 mg tablet,ex tended release 24 hr 2022 023 parish [facility], [address] [place], [address], 07/12/2023 15:46:16 hydrochlo rothiazid e 12.5 mg capsule 2022 024 RELL [facility], [address] [place], [address], 05/07/2024 12:07:13 Patient TargetsNo targets recorded. Patient InstructionsNo instructions recorded. Reason for Referral Sleep Medicine Referral for Fatigue grinds teeth, hx of afib and resistant HTN with increased daytime sleepiness Referring Physician: Kirsten Handy, Internal Medicine, Encounter Date: 05/07/2024 Results Created Date Observation Date Name Description Value Unit Range Abnormal Flag Note LastModifiedBy Organization Detail LastModifiedTime 12/20/19 24 12/05/2023 US, renal arter y No observ ation record ed. [address] (Medical Records) [address] [place], [address], 12/22/2023 07:41:43 12/20/19 24 12/05/2023 US, renal arter y No observ ation record ed. [address] (Medical Records) [address] [place], [address], 12/22/2023 07:41:25 01/11/20 24 01/04/2024 vin can cardi olite stres s test (PROC ) No observ ation record ed. [email or web address] [facility] [place] (Medical Records) [address] [place], [address], 01/12/2024 10:47:06 11/23/1911/22/2024 US, ankle No observ ation record ed. [address] (Medical Records) [address] [place], [address], 11/22/2024 10:56:45 11/23/19 25 11/22/2024 US, ankle No observ ation record ed. [address] (Medical Records) [address] [place] [address], [address], 11/22/2024 10:57:14 Result Notes None recorded. 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 Not Available [facility] 22:26:55 Crohn's disease 42669012 Active 2020 Not Available [facility] 22:26:54 Inguinal hernia 331496065 Active 2020 pelvic, middle Not Available [facility] 22:26:54 Hypertens gilberto disorder 23490400 Active 2020 Not Available [facility] 2 22:26:54 Basal cell carcinoma of skin 276553997 Active 2020 Not Available [facility] 22:26:55 Polyp of colon 40117038 Active 2020 Not Available [facility] 2 22:26:55 Hyperchol esterolem ia 60731536 Active 2020 Not Available [facility] 2 22:26:55 Liver function tests outside reference range 111146301 Active 2020 Not Available [facility] 2 22:26:55 Non-alcoh olic fatty liver 779356473 Active 2020 Not Available [facility] 22:26:55 Tinnitus 57140888 Active 2020 Not Available [facility] 22:26:55 Cobalamin deficienc y 011846364 Active 2020 Not Available [facility] 22:26:55 Motion sickness 41833425 Active 2021 Not Available [facility] 22:26:54 Paroxysma l atrial fibrillat ion 075836946 Active 2022 ADWOA BOCANEGRA [address] [place] [address], [address], [facility] 3 10:46:40 Adrenal cyst 450176172 Active 2022 ADWOA BOCANEGRA [address] [place] [address], [address], [facility] 3 11:36:16 Dysuria 42203582 Active 2022 ADWOA BOCANEGRA [address] [place] [address], [address], [facility] 3 11:37:49 Atrial fibrillat ion 21821488 Active 2022 ADWOA BOCANEGRA [address] [place] [address], [address], [facility] 3 10:17:59 Erectile dysfuncti on 340959249 Active 2022 ADWOA BOCANEGRA [address] [place] [address], [address], [facility] 3 10:43:20 Essential hypertens ion 12438335 Active 2022 ADWOA BOCANEGRA [address] [place] [address], [address], [facility] 3 10:46:50 Malignant hypertens ion 12803195 Active 2022 ADWOA BOCANEGRA [address] [place] [address], [address], [facility] 3 10:01:59 Hypertens gilberto emergency 60518989517 9104 Active 2022 ADWOA BOCANEGRA [address] [place] [address], [address], [facility] 3 10:04:44 Malignant essential hypertens ion 13406843 Active 2022 ADWOA BOCANEGRA [address] [place] [address], [address], [facility] 3 11:26:23 Benign prostatic hyperplas ia 407912278 Active 2022 ADWOA BOCANEGRA [address] [place], [address], [facility] 3 11:28:14 Resistant hypertens gliberto disorder 85179615112 4109 Active 2022 ADWOA BOCANEGRA [address] [place], [address], [facility] 3 11:12:57 Grinding teeth 63499449 Active 2023 ADWOA BOCANEGRA [address] [place], [address], [facility] 4 12:20:10 Fatigue 48026511 Active 2023 ADWOA BOCANEGRA [address] [place] [address], [address], [facility] 4 12:21:35 Colitis 67123895 Active 2023 ADWOA BOCANEGRA [address] [place], [address], [facility] 4 12:24:00 Notes:Some problems listed i n Documents: #[id number], #[id number] could not be added to this patient's chart. Please review these documents and add these problems to the patient's chart manually as needed. Problem Notes None recorded. Procedures Surgical History Date Name Laterality Status Provider Name and Address Organization Details Recorded Time 05/02/20 23 Colonoscopy completed Kevin Good DO [address] [place] [address], [address], [facility] 05/03/2023 11:18:22 05/02/20 23 endoscopy completed Kevin Good DO [address] [place] [address], [address], [facility] 05/03/2023 11:18:58 Imaging Results Imaging Date Name Status LastModified by Organiz ation Details LastModified Time 12/05/2023 US, renal artery completed [email or web address] [place] [address] (Medical Records) [address] [place], [address], 12/22/2023 07:41:43 12/05/2023 US, renal artery completed [address] (Medical Records) [address] [place], [address], 12/22/2023 07:41:25 01/04/2024 lexiscan cardiolite stress test (PROC) completed [email or web address] [facility] [place] (Medical Records) [address] [place], [address], 01/12/2024 10:47:06 11/22/2024 US, ankle completed [email or web address] (Medical Records) [address] [place], [address], 11/22/2024 10:56:45 11/22/2024 US, ankle completed [email or web address] (Medical Records) [address] [place], [address], 11/22/2024 10:57:14 Procedure Notes None recorded. Medical Equipment None Reported. Allergies Allergen ID Allergen Name Allergen Category Reaction Reaction Severity Criticality Documentation Date Start Date Code Code System Note Provider Name and Address Organization Details Recorded Time 4646 Flagyl medicatio n Not available Not available Not available 02/09/2021 6 RxNorm [address] [facility] 1 15:12:14 4647 Pentasa medicatio n Not available Not available Not available 02/09/2021 41810 [address] [facility] 1 15:12:20 7089 amlodipin e medicatio n swelling Not available Not available 02/20/[address] [facility] 3 09:56:38 7090 hydralazi ne medicatio n Not available Not available Not available 02/20/2023 5470 RxNorm Jenny mcdermott [place] [facility] 3 09:56:55 7091 clonidine medicatio n Not available Not available Not available 02/20/2023 2599 [facility] 09:57[facility]19 7092 nifedipin e medicatio n Not available Not available Not available 02/20/2023 7417 RxNorm Jenny mcdermott [facility] 3 09:58:41 7093 spironola ctone medicatio n abdominal pain nausea Not available Not available Not available 02/20/2023 9997 RxNorm ADWOA BOCANEGRA [address] [place], [address], [facility] 3 11:23:02 7449 prazosin medicatio n Not available Not available Not available 05/23/2023 8629 RxNorm ADWOA BOCANEGRA [address] [place], [address], [facility] 3 11:25:21 7450 doxazosin medicatio n Not available Not available Not available 05/23/2023 80943 RxNorm ADWOA BOCANEGRA [address] [place], [address], [facility] 3 11:25:28 Medications Name Sig Start Date Stop [...] Updated DateTime 3 173.99 cm 30 kg/m2 80849.4 7 g 67 /min 97 % 97 % 140 mm[Hg] 70 mm[Hg] [facility] 3 16:08:34 Date Recorded Body height Body mass index (BMI) Body weight Heart rate Oxygen saturation Oxygen saturation in Arterial blood by Pulse oximetry Systolic blood pressure Diastolic blood pressure Provider Name and Address Organization Details Last Updated DateTime 4 173.99 cm 28.5 kg/m2 52757.9 1 g 56 /min 97 % 97 % 162 mm[Hg] 86 mm[Hg] Marcie Hensley [facility] 4 11:32:49 Social History Question Answer Notes LastModified by Organizat ion Details LastModified Time Tobacco Smoking Status Former Smoker Quit 30 years ago Vidhi mcdermott [facility] 01/05/2022 11:23:50 What Is Your Level Of Caffeine Consumption? Heavy 2 Large Per Day Information not available 02/19/2021 Which Illicit Or Recreational Drugs Have You Used? Canabis Information not available 02/19/2021 What Was The Date Of Your Most Recent Tobacco Screening? 05/07/2024 [email or web address] Information not available 05/07/2024 Sex: Unknown Functional Status Question Answer Note LastModified by Organizat ion Details LastModified Time Do you use any illicit or recreational drugs? Yes [email or web address] Information not available 05/19/2023 What is your level of alcohol consumption? Occasional Information not available 02/19/2021 What is your exercise level? Occasional Information not available 02/19/2021 Mental Status None recorded. Family History Nothing Reported. Medical History No medical history recorded. Immunizations Vaccine Type Date Status Note Provider Nam e and Address Organization Details Recorded Time COVID-19, mRNA, LNP-S, PF, 30 mcg/0.3 mL dose 1 completed Not Available [facility] 05/23/2023 06:41:19 COVID-19, mRNA, LNP-S, PF, 30 mcg/0.3 mL dose 1 completed Not Available [facility] 05/23/2023 06:41:19 COVID-19, mRNA, LNP-S, PF, 30 mcg/0.3 mL dose 1 completed Not Available [facility] 05/23/2023 06:41:19 zoster live 8 completed Not Available [facility] 05/23/2023 06:41:19 Influenza, split virus, quadrivalent, preservative 1 completed Not Available [facility] 05/23/2023 06:41:19 SARS-COV-2 (COVID-19) vaccine, UNSPECIFIED 2 completed Marcie mcdermott, [facility] 05/07/2024 09:50:17 SARS-COV-2 (COVID-19) vaccine, UNSPECIFIED 3 completed Marcie mcdermott, [facility] 05/07/2024 09:50:26 SARS-COV-2 (COVID-19) vaccine, UNSPECIFIED 4 completed Marcie mcdermott, [facility] 05/07/2024 09:50:32 pneumococcal, unspecified formulation 4 completed Marcie mcdermott, [facility] 05/07/2024 09:50:51 influenza, unspecified formulation 2 completed Marcie mcdermott, [facility] 05/07/2024 09:51:04 influenza, unspecified formulation 3 completed Marcie mcdermott [facility] 05/07/2024 09:51:10 influenza, unspecified formulation 4 completed Marcie mcdermott, [facility] 05/07/2024 09:51:17 zoster, unspecified formulation 3 completed Marcie mcdermott, [facility] 05/07/2024 09:51:35 zoster, unspecified formulation 3 [facility] 09:51:41 Past Encounters Encounter ID Performer Location Encounter Start Date Encounter Closed Date Diagnosis/Indication Diagnosis SNOMED-CT Code Diagnosis ICD10 Code Diagnosis Note [id number] Kevin Good DO [facility] [address] [facility],[place] [address] 02/19/2021 10:27:04 02/19/2021 11:09:42 Mcdaniel's esophagus 698637088 K22.70 stable Cobalamin deficiency 190 532448 E53.8 stable Crohn's disease 46927553 K50.90 stableno recent flare ups per patient Hypercholesterolemia 136 79546 E78.00 will need recheck of his blood work Hypertensive disorder 38 279370 I10 BP elevated Liver func tion tests outside reference range 697150610 R94.5 due to fatty liver Non-alcoho lic fatty liver 653435737 K76.[address] Epiploic appendagitis 14 16804158 7673629 K38.[address] per radiologis t, but has fu with specialist to discuss findingswa nts specialist to do MRI Foot pain 98419327 M79.6 73 will fu with foot XR Pain of ri ght shoulder joint 5512995372 1789025 M25.511 fu with ortho [id number] Kevin Good [facility] [address] [facility],[place] [address] 01/05/2022 11:15:06 01/05/2022 12:21:32 Crohn's disease 41428005 K50.90 stable and under control Active or passive immunization 654764792 Z23 utd Adult heal th examination 988823347 Z00.00 overall is stable and unfortunat osmin is doing poorly with his bp meds causing issues Hypertensive disorder 38 179428 I10 given side effects of bradycardi a and pre syncope as well as fatigue and EDwe will try a once a day version metoprolol succ er 50 [id number] Kevin Good [facility] [address] [facility],[place] [address] 01/21/2022 09:02:43 01/21/2022 10:04:03 Hypertensive disorder 19035637 I10 given side effects of bradycardi a and pre syncope as well as fatigue and EDwe will try a once a day version metoprolol succ er 25 at bedtime now and will cont the new lower dose for now Abdominal aortic aneurysm screening 679786186 Z13.6 [id number] Kevin Good [facility] [address] [facility],[place] [address] 03/11/2022 09:09:07 03/11/2022 09:57:50 Hypertensive disorder 29715070 I10 feels much better and states that he has much more energyno longer has large spiking readings/. he is much more active now we will stop the metoprolol completely and increase the irbesartan to 300mg/12.5 mg Active or passive immunization 283142892 Z23 advised due for Tdap and pneumo Depression screening 171 598071 Z13.31 PHQ2 normal today Motion sickness 72527814 T75.3XXD [id number] Kevin Good DO [facility] [address] [facility],[place] [facility] [facility] [place] [address] 04/08/2022 12:07:14 04/08/2022 13:01:12 Hypertensive disorder 91888772 I10 feels overall that he is better but the bp is still running a bit too highwe will have him Hypercholesterolemia 136 92831 E78.00 Liver func tion tests outside reference range 161008376 R94.5 as noted is stable Non-alcoho lic fatty liver 394406237 K76.0 stable and no issue [id number] Kevin Good DO [facility] [address] [facility], [place] [address] 05/09/2022 14:37:14 05/09/2022 16:16:35 Hypertensive disorder 51297338 I10 adjusted back to the BID irbesartan /HTCZ Advance care planning 71 1643810 Z71.89 advised [id number] Kevin Good DO [facility] [address] [facility], [place] [address] 11/22/2022 10:21:05 11/23/2022 10:29:12 Hypercholesterolemia 90840006 E78.2 will need recheck of his blood work Hypertensive disorder 38 695419 I10 BP is good but now having low low readings with higher heart ratethe patient needs a new cardiowas seeing [place] who will no longer care for him due to him being out of state Crohn's disease 43965711 K50.00 stableno recent flare ups per patient Paroxysmal atrial fibrillation 165659485 I48.0 will send to new cardio [id number] Kevin Good DO [facility] [address] [facility], [address] [facility] [place] [address] 02/20/2023 09:49:57 02/20/2023 15:32:34 Active or passive immunization 012448180 Z23 discussed Adult heal th examination 305001703 Z00.00 discussed his BPcurrent medication sand current treatment plan Mcdaniel's esophagus 3029 15118 K22.70 stable Hypercholesterolemia 136 12165 E78.2 will need recheck of his blood work Hypertensive disorder 38 253923 I10 will stop labetalol and restart at 75 mg of metoprolol hold spironolac tone to see what his BP does with the irbesartan /HTCZ and metoprolol Paroxysmal atrial fibrillation 289271159 I48.0 will send to new cardio(adv ised Dr. Jones) Atrial fibrillation 4943 6004 I48.0 cont eliquisdo not start statin until levels are drawn [id number] Kevin Good [facility] [address] [facility],[place] [address] 03/06/2023 10:05:44 03/06/2023 11:45:35 Atrial fibrillation 27039871 I48.0 cont eliquisdo not start statin until levels are drawn Mcdaniel's esophagus 3029 79168 K22.70 stable Hypercholesterolemia 136 66163 E78.2 will need recheck of his blood work Erectile dysfunction 860 684395 N52.01 will have him try tadalafil Essential hypertension 90130141 I10 split the irbesartan and hydrochlor othiazide (only use HTCZ once per day)drop metoprolol to 50 mgmay be able to do 50 mg and 12.5 with meto tartrate so he can split it at the 25 mg [id number] Kevin Good [facility] [address] [facility],[place] [address] 04/26/2023 08:59:10 04/26/2023 11:36:42 Hypertensive disorder 09854654 I10 all meds listed as patient is taking themwill read half the dose of the doxazosin to take over for the cialis Erectile dysfunction 860 862486 N52.01 works well [id number] Kevin Good [facility] [address] [facility],[place] [address] [facility] [place] [address] 05/10/2023 09:36:22 05/10/2023 13:43:59 Mcdaniel's esophagus 007365254 K22.70 irritated after endoscopef ound polyps in the stomachcol on looked good Malignant hypertension 07626270 I10 will reduced the metoprolol over time and start carvedilol hold the spironolac tone (causes too many side effects) [id number] Kevin Good [facility] [address] [facility],[place] [address] 05/19/2023 09:36:57 05/19/2023 12:08:55 Malignant hypertension 85590167 I10 will reduced the metoprolol over time and start carvedilol hold the spironolac tone (causes too many side effects) Hypertensi ve emergency 1647881902 90514 I16.1 will start PRN, given instructio ns how to take medication and whenrestar t HTCZ 12.5 mg these will be for peaks Hypertensive disorder 38 755128 I10 all meds listed as patient is taking themwill read half the dose of the doxazosin to take over for the cialis [id number] Kevin Good [facility] [address] [facility],[place] [address] 05/23/2023 10:53:26 05/23/2023 12:09:15 Malignant essential hypertension 38436506 I10 BP works the best without sudden drops, keeps his BP between 120 to 130 without side effectswil l try to get it covered by his insurance as an alternativ e [id number] Kevin Good [facility] [address] [facility],[place] [address] 05/30/2023 15:51:24 05/30/2023 17:04:07 Atrial fibrillation 08063630 I48.0 cont eliquis Essential hypertension 47316259 I10 adjusted treatment agian for patientwil l fu in a week Hypertensive disorder 38 777304 I10 all meds listed as patient is taking themwill read half the dose of the doxazosin to take over for the cialis [id number] Kevin Good [facility] [address] [facility],[place] [address] 06/07/2023 08:20:30 06/07/2023 11:38:09 Resistant hypertensive disorder 8199717402 28549 I1A.0 seeing [place] goesthird week in June () Dr. Court [facility] [place] [facility] [place] [address] [facility], [facility], [place], [place] [address] [address] Atrial fibrillation 4943 6004 I48.0 cont eliquis Hypertensive disorder 38 721472 I10 all meds listed as patient is taking themwill read half the dose of the doxazosin to take over for the cialis [id number] Kevin Good [facility] [address] [facility] [address] 06/14/2023 08:47:09 06/16/2023 08:50:52 Essential hypertension 56442117 I10 adjusted treatment again for patientwil l f/u in a week [id number] Kevin Good [facility] [address] [facility],[place] [address] 06/21/2023 08:24:46 06/23/2023 09:46:14 Essential hypertension 85768375 I10 cont current medication s Atrial fibrillation 4943 6004 I48.0 cont eliquis [id number] Kevin Good [facility] [address] [facility],[place] [address] 05/07/2024 11:23:54 05/07/2024 14:24:16 Depression screening 383619104 Z13.31 SCREENING NEGATIVE Colitis 84179525 K50.00 stable Atrial fibrillation 4943 6004 I48.0 cont eliquis Grinding teeth 26999688 R46.89 will set up with CPAP Fatigue 32544548 R53.83 agreed to sleep study Health Concerns Section Related Observation LastModified by Organization Detai ls LastModified Time None Recorded Concern Status LastModified by Organization Details LastModified Time None Recorded Advance Directives Directive None Recorded Payers Encounter Date Sequence Insurance Name Policy Number Policy Allen Covered Member ID Allen Member ID Guarantor Name 05/30/2023 1 [place]ICARE [place]: [employer] Jeremie Dobbins [id number] Jeremie Dobbins 05/30/2023 2 [place] [id number] Jeremie N Shilpi [id number] Jeremie N Shilpi 06/07/2023 1 [place] [employer] [employer] Jeremie N Shilpi [id number] Jeremie N Shilpi 06/07/2023 2 [place] [id number] Jeremie N Shilpi [id number] Jeremie N Shilpi 06/14/2023 1 [place] Jeremie N Shilpi [id number] Jeremie N Shilpi 06/14/2023 2 [place] [id number] Jeremie N Shilpi [id number] Jeremie N Shilpi 06/21/2023 1 [place] [employer] [place] Jeremie N Shilpi [id number] Jeremie N Shilpi 06/21/2023 2 [place] [id number] Jeremie N Shilpi [id number] Jeremie N Shilpi 05/07/2024 1 [place] [place] Jeremie N Shilpi [id number] Jeremie N Shilpi 05/07/2024 2 [place] [id number] Jeremie N Shilpi [id number] Jeremie N Shilpi Notes Date Note Type Note Provider Name [...] having the big spikes ADWOA BOCANEGRA [address] [place], [address], [facility] 05/30/2023 16:51:04 3 text/html f.u [...] 300 mg hold tadalafil ADWOA BOCANEGRA [address] [place], [address], [facility] 06/07/2023 11:30:15 3 text/html BP f/u telemed phone call patient consents to phone call the patient is averaging higher with his BP and lower with his HR but has been feeling okaythe patient is 136/88, 62, doing well, did end up with an irregular heart rate everything sent down to cardio in [place] no irregular heartbeat todaythe patient reports his [...] 25 mg BID instead ADWOA BOCANEGRA [address] [place], [address], [facility] 06/14/2023 11:30:46 3 text/html BP [...] had really good BP 116/71 only one [id number] yesterday, irregular heart beat with chest tightness 136/80 average today, is getting the alert for the irregular heart rate but no symptoms, feels good discussed f/u with cardio in [place], all info already sent there [facility] [address] [address] [facility], [place], [id number], [facility] 06/21/2023 14:37:04 4 text/html c/o would like sleep study afib: stablewas placed on atorvastatin medication working well for [facility] corrected in chartBP is great at home and at their office grinding teeth per dentist + the afib and hx of resistant HTN agreed to go forward with a sleep studywill submit for the patient no recent colitis infection having his molar removed this monday [address] [facility], [place], [id number], [facility] 05/07/2024 12:40:00
== END 2024-11-28 13:43 | disposition home or self-care (01) ==
LOC: HO.HCS 13:15
PROVIDERS: PCP Internal Medicine; Visit Provider Internal Medicine
DX: I10 Essential (primary) hypertension (principal); I48.0 Paroxysmal atrial fibrillation; I47.29 Other ventricular tachycardia; I77.72 Dissection of iliac artery; R06.02 Shortness of breath
CPT/HCPCS: 93010; 99214; G2211

== ENCOUNTER → 2024-11-28 13:14 | Outpatient (BNVA) | payer MEDICARE, SELFPAY | PROVIDERS: PCP Internal Medicine; Visit Provider Internal Medicine | DX: I11.0 Hypertensive heart disease with heart failure (principal); I48.0 Paroxysmal atrial fibrillation; I73.9 Peripheral vascular disease, unspecified; I50.9 Heart failure, unspecified; I47.29 Other ventricular tachycardia; I77.72 Dissection of iliac artery; R06.02 Shortness of breath; E78.5 Hyperlipidemia, unspecified | CPT/HCPCS: 93005; 99212 ==

== ENCOUNTER 2024-12-05 09:25 | Outpatient (AMB) | payer MEDICARE, SELFPAY ==
--- NOTE | 2024-12-05 09:39 | MHC.OFFVIS ---
Intake Visit Reasons: follow up s/p Arterial US 11/22/24 Intake Note: Patient presents for follow up arterial US. No complaints. 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 He commenced statin therapy approximately one year ago, subsequently experiencing generalized muscle aches exacerbated by prolonged physical activity, impacting his mobility. Shortness of breath was also noted, likely related to a pre-existing condition of atrial fibrillation. The statin is the only new medication introduced over the past year. Approximately one year prior, imaging revealed a right common iliac artery dissection. The vessel wall displays a flap-like defect, which does not currently hinder blood flow, as confirmed by normal recent ultrasound findings. Monitoring will continue annually to assess any progression. [facility] Medical History Essential hypertension PAF (paroxysmal atrial fibrillation) Family History Father High blood pressure History of multiple strokes Social History Household Members: Spouse Alcohol intake: current Patient Tobacco Use Status: Never used Tobacco Review of Systems Const All systems reviewed & are unremarkable except as noted in HPI and below Reports no additional complaints ENT Reports Normal hearing present Card Denies chest pain, Denies chest pain at rest, Denies chest pain with activity and Denies pedal edema Resp Denies cough GI Denies abdominal pain Musc Denies abnormal gait, Denies muscle cramps and Denies radiating pain into limb Skin/Breast Denies skin ulcer and Denies wounds Neuro Reports Normal hearing present and Denies abnormal gait Psych Reports no additional complaints Physical Exam Const General: cooperative, healthy appearing and comfortable Orientation/consciousness: oriented to person, oriented to place and oriented to time HEENT Head: Yes normal to inspection Neck Neck: Yes normal visual inspection Carotids: no bruits Chest Chest palpation & inspection: normal inspection of the chest Resp Effort & Inspection: normal respiratory effort and able to speak in complete sentences Auscultation: clear to auscultation bilaterally, no crackles, no rales, no rhonchi and no wheezes Cardio Other: Bilateral palpable dorsalis pedis pulses Rate: regular rate Rhythm: regular rhythm Heart sounds: S1 normal heart sound present and S2 normal heart sound present Bruits: no carotid bruits Peripheral pulses: Peripheral pulses 2+ throughout GI Inspection: Yes normal to inspection Skin Wounds: no wounds Hair: normal Neuro General: oriented to person, oriented to place and oriented to time Cranial nerves: Yes CN's II-XII intact bilaterally and Yes Normal hearing present Cognition (Neuro): normal cognition Motor exam (neuro): 5/5 motor strength present throughout Extrem Other: venous exam: No significant superficial varicosities or spider telangiectasias, minimal edema General: No clubbing, No cyanosis and No edema Psych Appearance: grossly normal Mental Status: mental status grossly normal Speech and movement: Normal speech and movement present Results Reviewed Results Reviewed: Arterial testing dated 11/22/2024 demonstrates no significant arterial disease. Written report and images were reviewed. Assessment & Plan Assessment & Plan (1) Iliac artery dissection: Code(s): I77.72 - Dissection of iliac artery Category: Medical Plan: Stable. See below (2) PAD (peripheral artery disease): Code(s): I73.9 - Peripheral vascular disease, unspecified Category: Medical Plan: We discussed the right common iliac artery dissection identified last year, emphasizing that it is stable and will require annual ultrasound monitoring. I explained that the condition currently does not threaten vascular health but needs regular observation. For the myalgia, we highlighted the potential adverse effects related to his statin medication, recommended discussing alternative lipid-lowering agents with his primary care provider, and reviewed options for managing his symptoms. The patient was instructed to follow up with his primary provider and given reassurance about the current vascular findings. He will follow up with us in approximately 1 year's time for arterial surveillance follow-up. Thank you for allowing us to assist in his care. Orders: Orders US arterial duplex LE BI 1 Year I73.9 - Peripheral vascular disease, unspecified US abdominal aortic aneurysm 1 Year I73.9 - Peripheral vascular disease, unspecified Coding Level of Care Code Est Pt Level 4 (13525) Diagnoses Iliac artery dissection I77.72 PAD (peripheral artery disease) I73.9
--- OUTSIDE RECORDS SUMMARY | 2024-12-05 09:41 | XMS_ITS | Data Portability ---
Author Organization [facility], Home Service Address [address] [place] [address] Assessment Encounter Date Assessment Date Assessment LastModified [...] recorded. Referral sleep medicine referral 2023 024 [facility], [address] [facility] [address], [place], [address], 05/08/2024 08:18:01 Procedures None recorded. Surgeries None recorded. Imaging None recorded. Medication Orders metoprolo l succinate ER 25 mg tablet,ex tended release 24 hr 2022 023 [email or web address] [facility], [address] [facility], [place], [address], 05/07/2024 11:31:00 metoprolo l succinate ER 50 mg tablet,ex tended release 24 hr 2022 023 parish [facility], [address] [place], [address], 07/12/2023 15:46:16 hydrochlo rothiazid e 12.5 mg capsule 2022 024 RELL [facility], [address] [place], [address], 05/07/2024 12:07:13 Patient TargetsNo targets recorded. Patient [...] arter y No observ ation record ed. [address] (Medical Records) [address] [place], [address], 12/22/2023 07:41:43 12/20/19 24 12/05/2023 US, renal arter y No observ ation record ed. [address] (Medical Records) [address] [place], [address], 12/22/2023 07:41:25 01/11/20 24 01/04/2024 vin can cardi olite stres s test (PROC ) No observ ation record ed. [email or web address] [facility] (Medical Records) [address] [place], [address], 01/12/2024 10:47:06 11/23/1911/22/2024 US, ankle No observ ation record ed. [address] (Medical Records) [address] [place], [address], 11/22/2024 10:56:45 11/23/19 25 11/22/2024 US, ankle No observ ation record ed. [address] (Medical Records) [address] [place] [address], [address], 11/22/2024 10:57:14 Result Notes None recorded. 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 Not Available [facility] 22:26:55 Crohn's disease 51840116 Active 2020 Not Available [facility] 22:26:54 Inguinal hernia 665491470 Active 2020 pelvic, middle Not Available [facility] 22:26:54 Hypertens gilberto disorder 16521987 Active 2020 Not Available [facility] 2 22:26:54 Basal cell carcinoma of skin 301516514 Active 2020 Not Available [facility] 22:26:55 Polyp of colon 54926773 Active 2020 Not Available [facility] 2 22:26:55 Hyperchol esterolem ia 21744260 Active 2020 Not Available [facility] 2 22:26:55 Liver function tests outside reference range 237669698 Active 2020 Not Available [facility] 2 22:26:55 Non-alcoh olic fatty liver 118998719 Active 2020 Not Available [facility] 22:26:55 Tinnitus 15652434 Active 2020 Not Available [facility] 22:26:55 Cobalamin deficienc y 588411366 Active 2020 Not Available [facility] 22:26:55 Motion sickness 17229849 Active 2021 Not Available [facility] 22:26:54 Paroxysma l atrial fibrillat ion 335087610 Active 2022 AD[address]OC[address]RA [address] [place] [address], [address], [facility] 3 10:46:40 Adrenal cyst 642632901 Active 2022 ADWOA BOCANEGRA [address] [place] [address], [address], [facility] 3 11:36:16 Dysuria 33057052 Active 2022 ADWOA BOCANEGRA [address] [place] [address], [address], [facility] 3 11:37:49 Atrial fibrillat ion 05668443 Active 2022 ADWOA BOCANEGRA [address] [place] [address], [address], [facility] 3 10:17:59 Erectile dysfuncti on 504514285 Active 2022 [address]RA [address] [place] [address], [address], [facility] 3 10:43:20 Essential hypertens ion 94871589 Active 2022 ADWOA BOCANEGRA [address] [place] [address], [address], [facility] 3 10:46:50 Malignant hypertens ion 56811012 Active 2022 ADWOA BOCANEGRA [address] [place] [address], [address], [facility] 3 10:01:59 Hypertens gilberto emergency 92828534377 9104 Active 2022 ADWOA BOCANEGRA [address] [place] [address], [address], [facility] 3 10:04:44 Malignant essential hypertens ion 54444516 Active 2022 ADWOA BOCANEGRA [address] [place] [address], [address], [facility] 3 11:26:23 Benign prostatic hyperplas ia 114909906 Active 2022 ADWOA BOCANEGRA [address] [place], [address], [facility] Internal [facility] 3 11:28:14 Resistant hypertens gilberto disorder 89680596644 4109 Active 2022 ADWOA BOCANEGRA [address] [place], [address], [facility] 3 11:12:57 Grinding teeth 58619777 Active 2023 ADWOA BOCANEGRA [address] [place], [address], [facility] 4 12:20:10 Fatigue 89056602 Active 2023 ADWOA BOCANEGRA [address] [place] [address], [address], [facility] 4 12:21:35 Colitis 64173557 Active 2023 ADWOA BOCANEGRA [address] [place], [address], [facility] 4 12:24:00 Notes:Some problems listed i n Documents: #[id number], #[id number] could not be added to this patient's chart. Please review these documents and add these problems to the patient's chart manually as needed. Problem Notes None recorded. Procedures Surgical History Date Name Laterality Status Provider Name and Address Organization Details Recorded Time 05/02/20 23 Colonoscopy completed Kevin Good DO [address] [place] [address], [address], [facility] 05/03/2023 11:18:22 05/02/20 23 endoscopy completed Kevin Good DO [address] [place] [address], [address], [facility] 05/03/2023 11:18:58 Imaging Results Imaging Date Name Status LastModified by Organiz ation Details LastModified Time 12/05/2023 US, renal artery completed [id number] [place] [address] (Medical Records) [address] [place], [address], 12/22/2023 07:41:43 12/05/2023 US, renal artery completed [address] (Medical Records) [address] [place], [address], 12/22/2023 07:41:25 01/04/2024 lexiscan cardiolite stress test (PROC) completed [email or web address] [facility] (Medical Records) [address] [place], [address], 01/12/2024 10:47:06 11/22/2024 US, ankle completed [id number] (Medical Records) [address] [place], [address], 11/22/2024 10:56:45 11/22/2024 US, ankle completed [id number] (Medical Records) [address] [place], [address], 11/22/2024 10:57:14 Procedure Notes None recorded. Medical Equipment None Reported. Allergies Allergen ID Allergen Name Allergen Category Reaction Reaction Severity Criticality Documentation Date Start Date Code Code System Note Provider Name and Address Organization Details Recorded Time 4646 Flagyl medicatio n Not available Not available Not available 02/09/2021 6 RxNorm Concepcion mcdermott [facility] 1 15:12:14 4647 Pentasa medicatio n Not available Not available Not available 02/09/2021 19961 5 RxNorm Concepcion mcdermott [facility] 1 15:12:20 7089 amlodipin e medicatio n swelling Not available Not available 02/20/2023 75097 RxNorm Jenny mcdermott [facility] 3 09:56:38 7090 hydralazi ne medicatio n Not available Not available Not available 02/20/2023 5470 RxNorm Jenny mcdermott [place] - [facility] 3 09:56:55 7091 clonidine medicatio n Not available Not available Not available 02/20/2023 2599 [facility] 09:57:19 7092 nifedipin e medicatio n Not available Not available Not available 02/20/2023 7417 RxNorm Jenny mcdermott [facility] 3 09:58:41 7093 spironola ctone medicatio n abdominal pain nausea Not available Not available Not available 02/20/2023 9997 RxNorm ADWOA BOCANEGRA [address] [place], [address], [facility] 3 11:23:02 7449 prazosin medicatio n Not available Not available Not available 05/23/2023 8629 RxNorm ADWOA BOCANEGRA [address] [place], [address], [facility] 3 11:25:21 7450 doxazosin medicatio n Not available Not available Not available 05/23/2023 40941 RxNorm ADWOA BOCANEGRA [address] [place], [address], [facility] 3 11:25:28 Medications Name [...] Updated DateTime 3 173.99 cm 30 kg/m2 72470.4 7 g 67 /min 97 % 97 % 140 mm[Hg] 70 mm[Hg] [facility] 3 16:08:34 Date Recorded Body height Body mass index (BMI) Body weight Heart rate Oxygen saturation Oxygen saturation in Arterial blood by Pulse oximetry Systolic blood pressure Diastolic blood pressure Provider Name and Address Organization Details Last Updated DateTime 4 173.99 cm 28.5 kg/m2 08358.9 1 g 56 /min 97 % 97 % 162 mm[Hg] 86 mm[Hg] Marcie Hensley [facility] 4 11:32:49 Social History Question Answer Notes LastModified by Organizat ion Details LastModified Time Tobacco Smoking Status Former Smoker Quit 30 years ago Vidhi mcdermott [facility] 01/05/2022 11:23:50 What Is Your [...] use any illicit or recreational drugs? Yes [email or web address] Information not available 05/19/2023 What is your [...] mcg/0.3 mL dose 1 completed Not Available [facility] 05/23/2023 06:41:19 COVID-19, mRNA, LNP-S, PF, 30 mcg/0.3 mL dose 1 completed Not Available [facility] 05/23/2023 06:41:19 COVID-19, mRNA, LNP-S, PF, 30 mcg/0.3 mL dose 1 completed Not Available [facility] 05/23/2023 06:41:19 zoster live 8 completed Not Available [facility] 05/23/2023 06:41:19 Influenza, split virus, quadrivalent, preservative 1 completed Not Available [facility] 05/23/2023 06:41:19 SARS-COV-2 (COVID-19) vaccine, UNSPECIFIED 2 completed Marcie mcdermott, [facility] 05/07/2024 09:50:17 SARS-COV-2 (COVID-19) vaccine, UNSPECIFIED 3 completed Marcie mcdermott, [facility] 05/07/2024 09:50:26 SARS-COV-2 (COVID-19) vaccine, UNSPECIFIED 4 completed Marcie mcdermott, [facility] 05/07/2024 09:50:32 pneumococcal, unspecified formulation 4 completed Mracie mcdermott, [facility] 05/07/2024 09:50:51 influenza, unspecified formulation 2 completed Marcie mcdermott, [facility] 05/07/2024 09:51:04 influenza, unspecified formulation 3 completed Marcie mcdermott [facility] 05/07/2024 09:51:10 influenza, unspecified formulation 4 completed Marcie mcdermott, [facility] 05/07/2024 09:51:17 zoster, unspecified formulation 3 completed Marcie mcdermott, [facility] 05/07/2024 09:51:35 zoster, unspecified formulation 3 [facility]24 09:51:41 Past Encounters Encounter ID Performer Location Encounter Start Date Encounter Closed Date Diagnosis/Indication Diagnosis SNOMED-CT Code Diagnosis ICD10 Code Diagnosis Note [id number] Kevin Good DO [facility] [address] [facility],[place] [address] 02/19/2021 10:27:04 02/19/2021 11:09:42 Mcdaniel's esophagus 739744371 K22.70 stable Cobalamin deficiency 190 002720 E53.8 stable Crohn's disease 49897785 K50.90 stableno recent flare ups per patient Hypercholesterolemia 136 71577 E78.00 will need recheck of his blood work Hypertensive disorder 38 602975 I10 BP elevated Liver func tion tests outside reference range 193432993 R94.5 due to fatty liver Non-alcoho lic fatty liver 929405500 K76.[address] Epiploic appendagitis 14 74266644 9464259 K38.[address] per radiologis t, but has fu with specialist to discuss findingswa nts specialist to do MRI Foot pain 49716799 M79.6 73 will fu with foot XR Pain of ri ght shoulder joint 5902764436 9521753 M25.511 fu with ortho [id number] Kevin Good [facility] [address] [facility],[place] [address] 01/05/2022 11:15:06 01/05/2022 12:21:32 Crohn's disease 72770714 K50.90 stable and under control Active or passive immunization 916666298 Z23 utd Adult heal th examination 157350188 Z00.00 overall is stable and unfortunat osmin is doing poorly with his bp meds causing issues Hypertensive disorder 38 904358 I10 given side effects of bradycardi a and pre syncope as well as fatigue and EDwe will try a once a day version metoprolol succ er 50 [id number] Kevin Good [facility] [address] [facility],[place] [address] 01/21/2022 09:02:43 01/21/2022 10:04:03 Hypertensive disorder 14663507 I10 given side effects of bradycardi a and pre syncope as well as fatigue and EDwe will try a once a day version metoprolol succ er 25 at bedtime now and will cont the new lower dose for now Abdominal aortic aneurysm screening 987527719 Z13.6 [id number] Kevin Good [facility] [address] [facility],[place] [address] 03/11/2022 09:09:07 03/11/2022 09:57:50 Hypertensive disorder 70075588 I10 feels much better and states that he has much more energyno longer has large spiking readings/. he is much more active now we will stop the metoprolol completely and increase the irbesartan to 300mg/12.5 mg Active or passive immunization 508773169 Z23 advised due for Tdap and pneumo Depression screening 171 456907 Z13.31 PHQ2 normal today Motion sickness 93140143 T75.3XXD [id number] Kevin Good DO [facility] [address] [facility] [address] [place] [facility] [address] 04/08/2022 12:07:14 04/08/2022 13:01:12 Hypertensive disorder 78488783 I10 feels overall that he is better but the bp is still running a bit too highwe will have him Hypercholesterolemia 136 69112 E78.00 Liver func tion tests outside reference range 942153722 R94.5 as noted is stable Non-alcoho lic fatty liver 814693596 K76.0 stable and no issue [id number] Kevin Good DO [facility] [address] [facility], [place] [address] 05/09/2022 14:37:14 05/09/2022 16:16:35 Hypertensive disorder 91726693 I10 adjusted back to the BID irbesartan /HTCZ Advance care planning 71 0955215 Z71.89 advised [id number] Kevin Good DO [facility] [address] [facility] [address] [place] [address] 11/22/2022 10:21:05 11/23/2022 10:29:12 Hypercholesterolemia 62726654 E78.2 will need recheck of his blood work Hypertensive disorder 38 532264 I10 BP is good but now having low low readings with higher heart ratethe patient needs a new cardiowas seeing someone in [place] who will no longer care for him due to him being out of state Crohn's disease 74954371 K50.00 stableno recent flare ups per patient Paroxysmal atrial fibrillation 504749299 I48.0 will send to new cardio [id number] Kevin Good DO [facility] [address] [facility] [address] [place], ite [facility] [address] 02/20/2023 09:49:57 02/20/2023 15:32:34 Active or passive immunization 932710365 Z23 discussed Adult heal th examination 943764642 Z00.00 discussed his BPcurrent medication sand current treatment plan Mcdaniel's esophagus 3029 28827 K22.70 stable Hypercholesterolemia 136 93282 E78.2 will need recheck of his blood work Hypertensive disorder 38 516519 I10 will stop labetalol and restart at 75 mg of metoprolol hold spironolac tone to see what his BP does with the irbesartan /HTCZ and metoprolol Paroxysmal atrial fibrillation 551337615 I48.0 will send to new cardio(adv ised Dr. Jones) Atrial fibrillation 4943 6004 I48.0 cont eliquisdo not start statin until levels are drawn [id number] Kevin Good [facility] [address] [facility],[place] [address] 03/06/2023 10:05:44 03/06/2023 11:45:35 Atrial fibrillation 22096206 I48.0 cont eliquisdo not start statin until levels are drawn Mcdaniel's esophagus 3029 66596 K22.70 stable Hypercholesterolemia 136 52593 E78.2 will need recheck of his blood work Erectile dysfunction 860 172582 N52.01 will have him try tadalafil Essential hypertension 68570434 I10 split the irbesartan and hydrochlor othiazide (only use HTCZ once per day)drop metoprolol to 50 mgmay be able to do 50 mg and 12.5 with meto tartrate so he can split it at the 25 mg [id number] Kevin Good [facility] [address] [facility],[place] [address] 04/26/2023 08:59:10 04/26/2023 11:36:42 Hypertensive disorder 29732781 I10 all meds listed as patient is taking themwill read half the dose of the doxazosin to take over for the cialis Erectile dysfunction 860 317181 N52.01 works well [id number] Kevin Good [facility] [address] [facility],[place] [facility] [place] [address] 05/10/2023 09:36:22 05/10/2023 13:43:59 Mcdaniel's esophagus 631092736 K22.70 irritated after endoscopef ound polyps in the stomachcol on looked good Malignant hypertension 35175999 I10 will reduced the metoprolol over time and start carvedilol hold the spironolac tone (causes too many side effects) [id number] Kevin Good [facility] [address] [facility],[place] [address] 05/19/2023 09:36:57 05/19/2023 12:08:55 Malignant hypertension 52348636 I10 will reduced the metoprolol over time and start carvedilol hold the spironolac tone (causes too many side effects) Hypertensi ve emergency 4645447569 32477 I16.1 will start PRN, given instructio ns how to take medication and whenrestar t HTCZ 12.5 mg these will be for peaks Hypertensive disorder 38 130474 I10 all meds listed as patient is taking themwill read half the dose of the doxazosin to take over for the cialis [id number] Kevin Good [facility] [address] [facility],[place] [address] 05/23/2023 10:53:26 05/23/2023 12:09:15 Malignant essential hypertension 14744068 I10 BP works the best without sudden drops, keeps his BP between 120 to 130 without side effectswil l try to get it covered by his insurance as an alternativ e [id number] Kevin Good [facility] [address] [facility],[place] [address] 05/30/2023 15:51:24 05/30/2023 17:04:07 Atrial fibrillation 44758208 I48.0 cont eliquis Essential hypertension 61489750 I10 adjusted treatment agian for patientwil l fu in a week Hypertensive disorder 38 871491 I10 all meds listed as patient is taking themwill read half the dose of the doxazosin to take over for the cialis [id number] Kevin Good [facility] [address] [facility],[place] [address] 06/07/2023 08:20:30 06/07/2023 11:38:09 Resistant hypertensive disorder 6811839869 19818 I1A.0 [place] he goesthird week in June () Dr. Court [facility] [address] [facility], [facility], [place], [place] [address] [address] Atrial fibrillation 4943 6004 I48.0 cont eliquis Hypertensive disorder 38 747406 I10 all meds listed as patient is taking themwill read half the dose of the doxazosin to take over for the cialis [id number] Kevin Good [facility] [address] [facility] [facility] [place] [address] 06/14/2023 08:47:09 06/16/2023 08:50:52 Essential hypertension 97438429 I10 adjusted treatment again for patientwil l f/u in a week [id number] Kevin Good [facility] [address] [facility] [address] [place] [address] 06/21/2023 08:24:46 06/23/2023 09:46:14 Essential hypertension 48049204 I10 cont current medication s Atrial fibrillation 4943 6004 I48.0 cont eliquis [id number] Kevin Good [facility] [address] [facility] [address] 05/07/2024 11:23:54 05/07/2024 14:24:16 Depression screening 562378394 Z13.31 SCREENING NEGATIVE Colitis 51576993 K50.00 stable Atrial fibrillation 4943 6004 I48.0 cont eliquis Grinding teeth 01336158 R46.89 will set up with CPAP Fatigue 80339584 R53.83 agreed to sleep study Health Concerns Section Related Observation LastModified by Organization Detai ls LastModified Time None Recorded Concern Status LastModified by Organization Details LastModified Time None Recorded Advance Directives Directive None Recorded Payers Encounter Date Sequence Insurance Name Policy Number Policy Allen Covered Member ID Allen Member ID Guarantor Name 05/30/2023 1 [place] [employer] Jeremie Dobbins [id number] Jeremie Dobbins 05/30/2023 2 [place] [id number] Jeremie N Shilpi [id number] Jeremie N Shilpi 06/07/2023 1 [place] [employer] Jeremie N Shilpi [id number] Jeremie N Shilpi 06/07/2023 2 [place] [id number] Jeremie N Shilpi [id number] Jeremie N Shilpi 06/14/2023 1 [place] [employer] Jeremie N Shilpi [id number] Jeremie N Shilpi 06/14/2023 2 [place] [id number] Jeremie N Shilpi [id number] Jeremie N Shilpi 06/21/2023 1 [place] [employer] [employer] Jeremie N Shilpi [id number] Jeremie N Shilpi 06/21/2023 2 [place] [id number] Jeremie N Shilpi [id number] Jeremie N Shilpi 05/07/2024 1 [place] [employer] Jeremie N Shilpi [id number] Jeremie N Shilpi 05/07/2024 2 [place] [id number] Jeremie N Shilpi [id number] Jeremie N Shilpi Notes Date Note [...] having the big spikes ADWOA BOCANEGRA [address] [place], [address], [facility] 05/30/2023 16:51:04 3 text/html [...] 300 mg hold tadalafil ADWOA BOCANEGRA [address] [place], [address], [facility] 06/07/2023 11:30:15 3 text/html BP f/u telemed phone call patient consents to phone call the patient is averaging higher with his BP and lower with his HR but has been feeling okaythe patient is 136/88, 62, doing well, did end up with an irregular heart rate everything sent down to cardio in [place] no irregular heartbeat todaythe patient reports his [...] 25 mg BID instead ADWOA BOCANEGRA [address] [place], [address], [facility] 06/14/2023 11:30:46 3 text/html [...] had really good BP 116/71 only one zgzow500/71 yesterday, irregular heart beat with chest tightness 136/80 average today, is getting the alert for the irregular heart rate but no symptoms, feels good discussed f/u with cardio in [place], all info already sent there ADWOA BOCANEGRA [address] [facility], [place], [address], [facility] 06/21/2023 14:37:04 4 text/html c/o would like sleep study afib: stablewas placed on atorvastatin medication working well [facility] corrected in chartBP is great at home and at their office grinding teeth per dentist + the afib and hx of resistant HTN agreed to go forward with a sleep studywill submit for the patient no recent colitis infection having his molar removed this monday ADWOA BOCANEGRA [address] [facility], [place], [address], [facility] 05/07/2024 12:40:00
== END 2024-12-05 10:02 | disposition home or self-care (01) ==
LOC: HO.HVS 09:25
PROVIDERS: PCP Internal Medicine; Visit Provider Surgery Vascular Surgery
DX: I77.72 Dissection of iliac artery (principal); I73.9 Peripheral vascular disease, unspecified
CPT/HCPCS: 99214

== ENCOUNTER → 2024-12-05 09:25 | Outpatient (BNVA) | payer MEDICARE, SELFPAY | PROVIDERS: PCP Internal Medicine; Visit Provider Surgery Vascular Surgery | DX: I77.72 Dissection of iliac artery (principal); I73.9 Peripheral vascular disease, unspecified | CPT/HCPCS: 99212 ==

== ENCOUNTER → 2024-12-31 07:27 | Outpatient (REF) | payer MEDICARE, SELFPAY ==
--- OUTSIDE RECORDS SUMMARY | 2024-12-31 07:30 | XMS_ITS | Continuity of Care Document ---
Author Organization [facility] Address [address] [place] [address] [place] [address] Assessment No assessment recorded. Plan of Treatment Reminders Order Date Submit Date Provider Last Modified By Organization Details Last Modified Time Details Appointments MEDICARE ANNUAL WELLNESS 2025 10:00A M ADWOA BOCANEGRA Not available Not available Not available Lab CMP, serum or plasma 2024 025 [facility], [place], [address], 12/30/2024 14:48:08 CBC w/ auto diff 2024 025 [facility], [place], [address], 12/30/2024 14:48:08 lipid panel, blood 2024 025 [facility], [place], [address], 12/30/2024 14:48:08 PSA, serum or plasma 2024 025 [facility], [place], [address], 12/30/2024 14:48:08 hemoglobi n A1c, QN, blood 2024 025 [facility], [place], [address], 12/30/2024 14:48:08 Referral None recorded. Procedures None recorded. Surgeries None recorded. Imaging None recorded. Medication Orders irbesarta n 150 mg-hydroc hlorothia zide 12.5 mg tablet 2024 025 [facility], [address] [place] [address], [id number], 12/30/2024 14:49:51 niacin ER 1,000 mg tablet,ex tended release 24 hr 2024 025 [facility], [address] [place] [address], [address], 12/30/2024 14:59:33 famotidin e 40 mg tablet 2024 025 [facility], [address] [place] [address], [address], 12/30/2024 14:50:27 Eliquis 5 mg tablet 2024 025 [facility], [address] [place] [address], [address], 12/30/2024 14:49:52 Patient TargetsNo targets recorded. Patient InstructionsNo instructions recorded. Reason for Referral None Reported. 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 Not Available [facility] 22:26:55 Crohn's disease 14113372 Active 2020 Not Available [facility] 22:26:54 Inguinal hernia 224103819 Active 2020 pelvic, middle Not Available [facility] 22:26:54 Hypertens gilberto disorder 47218128 Active 2020 Not Available [facility] 22:26:54 Basal cell carcinoma of skin 201749940 Active 2020 Not Available [facility] 22:26:55 Polyp of colon 01813121 Active 2020 Not Available [facility] 11/10/202 2 22:26:55 Hyperchol esterolem ia 31682223 Active 2020 ADWOA BOCANEGRA [address] [place], [address], [facility] 5 14:56:50 Non-alcoh olic fatty liver 947282021 Active 2020 Not Available [facility] 2 22:26:55 Tinnitus 86831154 Active 2020 Not Available [facility] 2 22:26:55 Cobalamin deficienc y 917206762 Active 2020 Not Available [facility] 2 22:26:55 Motion sickness 94642684 Active 2021 Not Available [facility] 2 22:26:54 Paroxysma l atrial fibrillat ion 172111017 Active 2022 ADWOA BOCANEGRA [address] [place] [address], [address], [facility] 3 10:46:40 Adrenal cyst 888989836 Active 2022 ADWOA BOCANEGRA [address] [place] [address], [address], [facility] 3 11:36:16 Dysuria 32613648 Active 2022 ADWOA BOCANEGRA [address] [place] [address], [address], [facility] 3 11:37:49 Atrial fibrillat ion 32989124 Active 2022 ADWOA BOCANEGRA [address] [place] [address], [address], [facility] 3 10:17:59 Erectile dysfuncti on 059869103 Active 2022 ADWOA BOCANEGRA [address] [place] [address], [address], [facility] 3 10:43:20 Essential hypertens ion 11248148 Active 2022 ADWOA BOCANEGRA [address] [place] [address] [place], , [facility] 3 10:46:50 Malignant hypertens ion 07060777 Active 2022 ADWOA BOCANEGRA [address] [place] [address], , [facility] 3 10:01:59 Hypertens gilberto emergency 32412202731 9104 Active 2022 ADWOA BOCANEGRA [address] [place] [address], , [facility] 3 10:04:44 Malignant essential hypertens ion 62167954 Active 2022 ADWOA BOCANEGRA [address] [place] [address], , [facility] 3 11:26:23 Benign prostatic hyperplas ia 386852504 Active 2022 ADWOA BOCANEGRA [address] [place] [address], , [facility] 3 11:28:14 Resistant hypertens gilberto disorder 92833441824 4109 Active 2022 ADWOA BOCANEGRA [address] [place] [address], , [facility] 3 11:12:57 Grinding teeth 63202444 Active 2023 ADWOA BOCANEGRA [address] [place] [address], , [facility] 4 12:20:10 Fatigue 31563775 Active 2023 ADWOA BOCANEGRA [address] [place] [address], [address], [facility] 4 12:21:35 Colitis 94757976 Active 2023 ADWOA BOCANEGRA [address] [place] [address], , [facility] 4 12:24:00 Notes:Some problems listed i n Documents: #[id number], #[id number] could not be added to this patient's chart. Please review these documents and add these problems to the patient's chart manually as needed. Problem Notes None recorded. Procedures Surgical History Date Name Laterality Status Provider Name and Address Organization Details Recorded Time 05/02/20 Colonoscopy completed Kevin Good, [address] [place], [address], [facility] 05/03/2023 11:18:22 05/02/20 endoscopy completed Kevin Good, DO [address] [place], [address], [facility] 05/03/2023 11:18:58 Imaging Results None recorded. Procedure Notes None recorded. Medical Equipment None Reported. Allergies Allergen ID Allergen Name Allergen Category Reaction Reaction Severity Criticality Documentation Date Start Date Code Code System Note Provider Name and Address Organization Details Recorded Time 4646 Flagyl medicatio n Not available Not available Not available 02/09/2021 6 [facility] 15:12:14 4647 Pentasa medicatio n Not available Not available Not available 02/09/2021 48156 5 Rx[facility] 15:12:20 7089 amlodipin e medicatio n swelling Not available Not available 02/20/2023 26068 RxNorm Jenny Zen [facility] 3 09:56:38 7090 hydralazi ne medicatio n Not available Not available Not available 02/20/2023 5470 RxNorm Jenny Zen [facility] 3 09:56:55 7091 clonidine medicatio n Not available Not available Not available 02/20/2023 2599 RxNorm Jenny Zen [facility] 3 09:57:19 7092 nifedipin e medicatio n Not available Not available Not available 02/20/2023 7417 [facility] 3 09:58:41 7093 spironola ctone medicatio n abdominal pain nausea Not available Not available Not available 02/20/2023 9997 RxNorm ADWOA BOCANEGRA [address] [place], [address], [facility] 3 11:23:02 7449 prazosin medicatio n Not available Not available Not available 05/23/2023 8629 RxNorm ADWOA BOCANEGRA [address] [place], [address], [facility] 3 11:25:21 7450 doxazosin medicatio n Not available Not available Not available 05/23/2023 04950 RxNorm ADWOA BOCANEGRA [address] [place], [address], [facility] 3 11:25:28 9070 Product containin g 3-hydroxy -3-methyl glutaryl- coenzyme A reductase inhibitor (product) medicatio n Not available Not available [facility] 12/30/2024 61500 009 SNOMED muscl e pain, sob, fatig ue, weigh t gain, feet pain, swell ing ADWOA BOCANEGRA [address] [place], [address], [facility] 5 14:45:31 Medications Name Sig Start Date Stop Date Status Note LastModified by Organization Details LastModified Time amoxicillin 500 mg capsule TAKE 1 CAPSULE BY MOUTH THREE TIMES DAILY UNTIL GONE 12/30 completed Not Available Not Available Not Available atorvastati n 40 mg tablet TAKE 1 TABLET BY MOUTH IN THE EVENING 12/30 completed Not Available Not Available Not Available carvedilol 6.25 mg tablet Take 1 [...] completed Not Available Not Available Not Available niacin ER 1,000 mg tablet,exte nded release 24 hr Take 1 tablet every day by oral route as directed for 30 days. 2024 active Not Available Not Available Not Avai lable clonidine 0.1 mg/24 hr weekly transdermal patch APPLY 1 PATCH TOPICALLY ONCE A WEEK 02/20 completed Not Available Not Available Not Available irbesartan 150 mg-hydrochl orothiazide 12.5 mg tablet TAKE 1 TABLET BY MOUTH once DAILY 2024 active Not Available Not Available Not Avai lable metoprolol succinate ER 50 mg tablet,exte nded release 24 hr TAKE 1 TABLET BY MOUTH TWICE DAILY 07/12 completed Not Available Not Available Not Available famotidine 40 mg tablet Take 1 tablet every day by oral route as needed for 90 days. 2024 active Not Available Not Available Not Avai lable amlodipine 2.5 mg tablet TAKE 1 TABLET [...] ML INTRAMUSC ULARLY ONCE EVERY MONTH DIRECTED active Not Available Not Available No t Available Gentle Laxative (bisacodyl) 5 mg tablet,sandra yed [...] 25 gauge x 1 USE 1 SYRINGE INTRAMUSC ULARLY MONTHLY active Not Available Not Available No t Available doxazosin 4 mg tablet TAKE 1 TABLET [...] MOUTH EVERY 4 HOURS NEEDED FOR PAIN 12/30 completed Not Available Not Available Not Available valsartan 160 mg-hydrochl orothiazide 25 mg [...] Available Not Available Eliquis 5 mg tablet Take 1 tablet twice a day by oral route. 2024 active Not Available Not Available Not Avai lable Vitals Date Recorded Body height Body mass index (BMI) Body weight Heart rate Oxygen saturation Oxygen saturation in Arterial blood by Pulse oximetry Systolic blood pressure Diastolic blood pressure Provider Name and Address Organization Details Last Updated DateTime 173.99 cm 28.5 kg/m2 54162.5 5 g 60 /min 98 % 98 % 140 mm[Hg] 68 mm[Hg] Jenny Zaldivar [facility] 5 14:19:52 Social History Question Answer Notes LastModified by Organizat ion Details LastModified Time Tobacco Smoking Status Former Smoker Quit 30 years ago [facility] 01/05/2022 11:23:50 What Is Your Level Of Caffeine Consumption? Heavy 2 Large Per Day Information not available 02/19/2021 Which Illicit Or Recreational Drugs Have You Used? Canabis Information not available 02/19/2021 What Was The Date Of Your Most Recent Tobacco Screening? 12/30/2024 Information not available 12/30/2024 Sex: Unknown Functional Status Question Answer Note LastModified by Organizat ion Details LastModified Time Do you use any illicit or recreational drugs? Yes [email or web address] Information not available 05/19/2023 Do you or have you ever used any other forms of tobacco or nicotine? No [email or web address] Information not available 12/30/2024 What is your level of alcohol consumption? Occasional Information not available 02/19/2021 What is your exercise level? Occasional Information not available 02/19/2021 Mental Status None recorded. Family History Nothing Reported. Medical History No medical history recorded. Immunizations Vaccine Type Date Status Note Provider Nam e and Address Organization Details Recorded Time COVID-19, mRNA, LNP-S, PF, 30 mcg/0.3 mL dose 1 completed Not Available [facility] 05/23/2023 06:41:19 COVID-19, mRNA, LNP-S, PF, 30 mcg/0.3 mL dose 1 completed Not Available [facility] 05/23/2023 06:41:19 COVID-19, mRNA, LNP-S, PF, 30 mcg/0.3 mL dose 1 completed Not Available [facility] 05/23/2023 06:41:19 zoster live 8 completed Not Available [facility] 05/23/2023 06:41:19 Influenza, split virus, quadrivalent, preservative 1 completed Not Available [facility] 05/23/2023 06:41:19 SARS-COV-2 (COVID-19) vaccine, UNSPECIFIED 2 completed Marcie mcdermott, [facility] 05/07/2024 09:50:17 SARS-COV-2 (COVID-19) vaccine, UNSPECIFIED 3 completed Marcie mcdermott, [facility] 05/07/2024 09:50:26 SARS-COV-2 (COVID-19) vaccine, UNSPECIFIED 4 completed Marcie mcdermott, [facility] 05/07/2024 09:50:32 pneumococcal, unspecified formulation 4 completed Marcie mcdermott, [facility] 05/07/2024 09:50:51 influenza, unspecified formulation 2 completed Marcie mcdermott, [facility] 05/07/2024 09:51:04 influenza, unspecified formulation 3 completed Marcie mcdermott, [facility] 05/07/2024 09:51:10 influenza, unspecified formulation 4 completed Marcie mcdermott, [facility] 05/07/2024 09:51:17 zoster, unspecified formulation 3 completed Marcie mcdermott, [facility] 05/07/2024 09:51:35 zoster, unspecified formulation 3 completed Marcie mcdermott, [facility] 05/07/2024 09:51:41 Past Encounters Encounter ID Performer Location Encounter Start Date Encounter Closed Date Diagnosis/Indication Diagnosis SNOMED-CT Code Diagnosis ICD10 Code Diagnosis Note [id number] Kevin Good [facility] [address] [facility] [address] 12/30/2024 13:55:02 12/30/2024 15:05:09 General examination of patient 903679131 Z00.00 cont on current treatment planstatin stopped and placed on allergy list Atrial fibrillation 4943 6004 I48.0 cont eliquis Hypertensive disorder 38 825761 I10 all meds listed as patient is taking themwill read half the dose of the doxazosin to take over for the cialis Mcdaniel's esophagus 3029 78972 K22.70 irritated after endoscopef ound polyps in the stomachcol on looked good Hypercholesterolemia 136 88876 E78.00 will need recheck of his blood work Health Concerns Section Related Observation LastModified by Organization Detai ls LastModified Time None Recorded Concern Status LastModified by Organization Details LastModified Time None Recorded Payers Encounter Date Sequence Insurance Name Policy Number Policy Allen Covered Member ID Allen Member ID Guarantor Name 12/30/2024 1 [place] [employer] Jeremie N Shilpi [id number] Jeremie Dobbins 12/30/2024 2 [place] [id number] Jeremie Dobbins [id number] Jeremie Dobbins Notes Date Note Type Note Provider Name a nd Address Organization Details Recorded Time 5 text/html Annual WellnessReported bypatient.Diet and Nutrition:healthy diet; discussed vitamin and supplement use; discussed portion control; discussed maintaining calcium balance; discussed diet improvement Fracture Risk:no history of fractures; no recent explained fracture; no sudden unexplained fractures; no previous musculoskeletal injuries Physical Activity:exercises on a regular basis; recent increase in physical activity; good physical condition; discussed weightbearing activities; discussed exercise habits Additional Lifestyle Factors:no tobacco use; drinks alcohol (mild-moderate) Depression Risk:never feels sad, empty, or tearful; no loss of interest in activities; no significant changes in weight; no sleep disturbances or insomnia; no agitation; no loss of energy; no feelings of worthlessness or guilt; no thoughts of suicide; no history of depression; no history of mood disorders Hearing:no loss of hearing Vision:no vision problems the patient had severe side effects with the atorvastatinthe patient stopped the med and felt much bettercaused joint pain, sob, fatigue, brain fog cont off medication needs refill will trial on niacin insteadpossibly ezetimibe or fenofibrate depending on reaction if he gets side effects ADWOA BOCANEGRA [address] [place] [address], [place], [address], [facility] 12/30/2024 15:01:07
--- NOTE | 2024-12-31 07:44 | CA_ITS ---
Transthoracic Echocardiogram Patient (Last, First, Middle): Jeremie Dobbins, Gender: Male Date of : 1955 Age: 69 Procedure Date: 12/31/2024 Procedure Type: Transthoracic Echocardiogram Location: OP Height: 172.72 cm Weight: 86.18 kg BSA: 2.00 m2 Heart Rate: bpm BP: 124 / 70 mmHg [employer] Crm Developer: Referring MD: Daniel Pierce MD Symptoms: R06.02 - Shortness of breath Study Quality: Good ECG Rhythm: Sinus Conclusions: - The left ventricular systolic function is normal. The calculated ejection fraction is 65% by biplane method. - There is moderately increased left ventricular wall thickness. - No obvious valvular pathology seen on this study. Findings Left Ventricle Normal left ventricular cavity size. There is moderately increased left ventricular wall thickness. The left ventricular systolic function is normal. The calculated ejection fraction is 65% by biplane method. There is no evidence of regional wall motion abnormalities. Diastolic function is normal for age. Right Ventricle Normal right ventricular cavity size and systolic function. Atria The left atrium is mildly dilated. The right atrium is normal in size. Aortic Valve There is a normal trileaflet aortic valve. There is mild calcification of the aortic valve. There is no aortic valve stenosis. There is no aortic valve regurgitation. Mitral Valve The mitral valve appears normal. There is trace mitral valve regurgitation. There is no mitral valve stenosis. Pulmonic Valve The pulmonic valve is likely normal. There is trace pulmonic valve regurgitation. Tricuspid Valve There is trace tricuspid valve regurgitation. There is no evidence of pulmonary hypertension. Great Vessels The asc aorta is normal in size. Venous The inferior vena cava is normal in size and collapses less than 50% with inspiration. Pericardium/Pleural There is no evidence of pericardial effusion. Prior Study Comparison No significant change compared to prior study dated: 12/21/2022. Recommendations, Care & Conclusions No obvious valvular pathology seen on this study. Measurements 2D Linear Measurements IVSd: 1.60 0.6-0.9/0.6-1.0 cm LVIDd: 3.74 3.9-5.3/4.2-5.9 cm LVIDd Index: 1.87 2.4-3.2/2.2-3.1 cm/m2 LVIDs: 2.24 2.0-3.6 cm LVPWd: 1.65 0.7-1.1 cm Ao Root: 3.30 2.1-3.5 cm LA Diam: 3.80 2.7-3.8/3.0-4.0 cm LAIDs Index: 1.90 1.5-2.3 cm/m2 LV Mass: 300.79 67-162/88-224 g LV Mass Index: 150.39 43-95/49-115 g/m2 LVOT Diam: 2.20 3.0+(-)1.3 cm 2D Systolic Function EF 4C: 64.70 >55% EF 2C: 67.30 >55% EF BiP: 65.10 >55% Mitral Valve MV Pk E: 0.54 MV PK A: 0.64 MV Decel Time: 236.00 E/A: 0.80 E'Lateral: 7.40 E'Medial: 7.51 E/E' Med: 7.10 E/E' Lat: 7.20 PHT: 69.00 MVA PHT: 3.19 Decel [place]: 2.27 Aortic Valve AoV Pk Chidi: 1.61 AoV Mn Chidi: 1.07 AoV VTI: 0.42 AoV Pk Grad: 10.00 Aov Mn Grad: 5.00 RISSA Cont.VTI: 2.45 LVOT LVOT Pk Chidi: 1.05 LVOT Mn Chidi: 0.75 LVOT VTI: 0.27 LVOT Pk Grad: 4.00 LVOT Mn Grad: 3.00 LVOT Diam: 2.20 LVOT Area: 3.80 Diastolic Function MV Pk E: 0.54 MV Pk A: 0.64 E/A: 0.80 E'Medial: 7.51 E/E' Med: 7.10 E' Laterial: 7.40 E/E' Lat: 7.20 Right Ventricle TAPSE (mm): 21.00 TVS' Chidi: 12.00 Tricuspid Valve TR Pk Chidi: 1.61 TR Pk Grad: 10.00 RA Press: 8.00 RVSP: 18.00 Great Vessels Aorta Ao Root-2D: 3.30 2.0-3.7 cm Ao Asc: 3.50 2.1-3.4 cm Pulmonary Valve PV Pk Chidi: 1.03 Peak PV Grad: 4.00 Updated in Other Vendor System with Status of Final Daniel Pierce MD electronically signed on 01/01/2025 12:48:28 PM with status of Final
[2024-12-31 08:39] LABS: B Type Natriuretic Peptide 24 pg/mL (<100)
[2024-12-31 08:42] LABS: Alanine Aminotransferase 53 U/L (0-40); Albumin Level 4.1 g/dL (3.5-5.0); Alkaline Phosphatase 87 U/L (39-117); Anion Gap 12 (12-20); Aspartate Amino Transferase 31 U/L (5-37); Bilirubin Total 0.8 mg/dL (0.0-1.0); Blood Urea Nitrogen 24 mg/dL (9-16); Calcium 9.1 mg/dL (8.4-10.2); Carbon Dioxide 30 mmol/L (22-29); Chloride 105 mmol/L (96-108); Cholesterol 218 mg/dL (<200); Estimated Glomerular Filt Rate > 60; Glucose Random 120 mg/dL (60-115); HDL Cholesterol 51 mg/dL (>40); LDL Cholesterol Calculated 134 mg/dL (<100); Potassium 3.8 mmol/L (3.3-5.1); Sodium 143 mmol/L (135-145); Total Protein 6.2 g/dL (6.5-8.0); Triglycerides 169 mg/dL (<150)
== END ==
LOC: HO.CARD 07:27
PROVIDERS: PCP Internal Medicine; Visit Provider Internal Medicine
DX: I73.9 Peripheral vascular disease, unspecified (principal); R06.02 Shortness of breath; I50.9 Heart failure, unspecified; E78.5 Hyperlipidemia, unspecified
CPT/HCPCS: 36415; 80053; 80061; 83880; 93306

== ENCOUNTER → 2024-12-31 07:44 | Outpatient (BNV) | payer MEDICARE, SELFPAY | PROVIDERS: PCP Internal Medicine; Visit Provider Internal Medicine | DX: I51.7 Cardiomegaly (principal); I35.8 Other nonrheumatic aortic valve disorders | CPT/HCPCS: 93306 ==

== ENCOUNTER 2025-05-29 15:03 | Outpatient (AMB) | payer MEDICARE, SELFPAY ==
--- NOTE | 2025-05-29 15:19 | MHC.OFFVIS ---
Vital Signs 05/29/25 15:21 Height 5 ft 8 in Weight 191 lb 12.835 oz BMI 29.2 BP 148/80 H Blood Pressure Location Lt brachial Position Sitting Pulse 65 Pulse Source Pulse Oximeter Intake Visit Reasons: 6m follow up Allergies amlodipine Allergy (Severe, Verified 12/05/24 09:41) Swelling Clonidine Allergy (Severe, Uncoded 11/23/23 11:02) Hives Hydralazine Allergy (Mild, Uncoded 11/23/23 11:02) Nausea and Vomiting Nefedipine Allergy (Mild, Uncoded 11/23/23 11:02) Numbness parzonsin Allergy (Mild, Uncoded 11/23/23 11:02) Unknown Tadalafil Allergy (Mild, Uncoded 11/23/23 11:02) Unknown Medication List - Last Reconciled 05/29/25 by Daniel Pierce MD apixaban (Eliquis) 5 mg PO BID carvedilol 12.5 mg PO BID cyanocobalamin (vitamin B-12) 1,000 mcg subcut DAILY famotidine 40 mg PO DAILY irbesartan-hydrochlorothiazide 150-12.5 mg 1 tab PO BID 90 days lansoprazole 30 mg PO DAILY HPI Comments Details: Jeremie returns for follow-up regarding hypertension. In the past, was seen regarding uncontrolled hypertension. He has tried various medications over time and has had numerous issues. He had previously brought a file with extensive list of meds tried, side effects etc.. With amlodipine he had severe ankle swelling. With hydralazine, he had diarrhea, vomiting and various other issues. With doxazosin, had lightheadedness. With clonidine patch, he had hives on his face and body. With nifedipine, he had pins and needles. With labetalol, labile readings. Steep blood pressure drop. With prazosin, again blood pressure went too low. Current meds include Irbesartan/Hydrochlorothiazide/Coreg. Otherwise, there is one episode of atrial fibrillation treated in [place], May 2022. He states he had other Holter through cardiology in [place] and told to have asymptomatic episodes. He remains on anticoagulation. With regard to dyslipidemia he has tried statins and had numerous side effects and stopped. Then try Repatha and he stated that he had even more side effects. Hence currently not taking anything for the lipids. Today's blood pressure is slightly high but he states he has had a rough day as his had to get some testing extra. Otherwise, home blood pressure is somewhat lower than this according to him. [facility] Medical History Essential hypertension PAF (paroxysmal atrial fibrillation) Family History Father High blood pressure History of multiple strokes Social History Household Members: Spouse Alcohol intake: current Patient Tobacco Use Status: Never used Tobacco Review of Systems Const Denies weakness ENT Denies dizziness Card Denies chest pain, Denies chest pain with activity, Denies syncope, Denies rapid heart rate, Denies pedal edema, Denies edema, Denies leg edema, Denies lightheadedness, Denies palpitations, Denies dyspnea, Denies dyspnea on exertion and Denies orthopnea Resp Denies cough, Denies dyspnea and Denies dyspnea on exertion GI Denies hematochezia and Denies change in stool character Musc Denies abnormal gait, Denies muscle cramps, Denies muscle weakness, Denies numbness, Denies radiating pain into limb and Denies tingling Neuro Denies abnormal gait, Denies dizziness, Denies syncope, Denies numbness, Denies tingling and Denies weakness Endo Denies palpitations Physical Exam Vital Signs: Last Vital Signs Pulse 65 05/29/25 15:21 BP 148/80 H 05/29/25 15:21 BMI result Body Mass Index 29.2 Const General: comfortable and no acute distress Orientation/consciousness: patient oriented x3 HEENT Other: Unremarkable Head: Yes normal to inspection Neck Neck: Yes normal visual inspection Chest Chest palpation & inspection: normal inspection of the chest Resp Auscultation: clear to auscultation bilaterally Cardio Palpation: normal PMI Heart sounds: S1 normal heart sound present, S2 normal heart sound present, no gallops, no murmurs and no rubs GI Palpation (GI): Soft to palpation Back/Spine/Pelvis Other: unremarkable Skin General skin exam: no rashes or lesions noted Neuro General: patient oriented x3 Extrem General: Yes normal to inspection Psych Mental Status: mental status grossly normal Assessment & Plan Assessment & Plan (1) Essential hypertension: Code(s): I10 - Essential (primary) hypertension Category: Medical Plan: Intolerance to various medications including amlodipine, hydralazine, doxazosin, clonidine patch, nifedipine, labetalol, prazosin. He is on irbesartan/hydrochlorothiazide/carvedilol. Mostly improved blood pressure but today's reading is slightly high. Advised him to monitor home readings. Not clear if there was any issue with Spironolactone in the past, possibly another agent for future. We may be able to go up on the carvedilol dosing as well as needed. Per labs brought by patient in past, Renin, metanephrine, normetanephrine, aldosterone within normal limits. In the CTA, no significant renal artery stenosis. (2) PAF (paroxysmal atrial fibrillation): Code(s): I48.0 - Paroxysmal atrial fibrillation Category: Medical Plan: In the last Holter, underlying rhythm is sinus with an average rate of 73/Min. Frequent PACs with a burden of 3%. Short supraventricular runs. EKG from [place], 2021-atrial fibrillation with rapid ventricular rate at 133/Min. Nonspecific ST-T changes. Beta-blockers and anticoagulation. (3) NSVT (nonsustained ventricular tachycardia): Code(s): I47.29 - Other ventricular tachycardia Category: Medical Plan: Per cardiology notes in [place], a prior Holter had shown 11 beat run of NSVT. Continue beta-blockers as above. In the ETT, he was able to reach 10 METS capacity with shortness of breath. Reduced heart rate response but he was on beta-blockers. No EKG evidence of ischemia. Perfusion was also unremarkable. Prior ETT at [facility] 2022-attained 7.8 METS. No EKG evidence of ischemia. No angina. Frequent PACs during exercise. In the most recent echocardiogram, LVEF is 65%. No significant valvular findings. No specific implications and just stay on beta-blockers. 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 Followed up at vascular. 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
[2025-05-29 15:21] VITALS: BP 148/80; PULSE 65; BMI 29.2
--- OUTSIDE RECORDS SUMMARY | 2025-05-29 18:18 | XMS_ITS | Encounter Summary ---
Author Organization [facility] Address [address] [facility] [address] [place] [id number] Phone Care Team Providers Care Asset Coordinator Name Role Phone Kevin Good Primary Care Provider [phone] Encounter Details Date Type Department Care Team (Latest Contact Info) Description 02/19/2021 Transcribe Orders Virtual Department [address] [place] [address] Kirsten Handy PA [address] [place] [address] [place] [address] Bilateral foot pain (Primary Dx) Social History Tobacco Use Types Packs/Day Years Used Date Smoking Tobacco: Never Assessed Sex and Gender Information Value Date Recorded Sex Assigned at Male 05/22/2023 4:50 PM EST Legal Sex Male 9:58 PM EDT Gender Identity Male 05/22/2023 4:50 PM EST Sexual Orientation Straight 05/22/2023 4: 50 PM EST documented as of this encounter Plan of Treatment Not on file documented as of this encounter Results * XR FOOT 3 OR MORE VIEWS (BILATERAL) (02/24/2021 8:18 AM EDT) Anatomical Region Laterality Modality Foot Left Computed Radiogr aphy 02/24/2021 9:57 AM EDT Impressions 02/24/2021 10:14 AM EDT No findings to account for pain. Narrative 02/24/2021 10:14 AM EDT HISTORY: As above. COMPARISON: None. BILATERAL FOOT RADIOGRAPH FINDINGS: 6 images obtained. No acute fracture or malalignment. Joint spaces are preserved. No destructive or suspicious bone lesions. No soft tissue swelling. Mild bilateral ankle atherosclerosis. Procedure Note Familia Anders MD - 02/24/2021 HISTORY: As above. COMPARISON: None. BILATERAL FOOT RADIOGRAPH FINDINGS: 6 images obtained. No acute fracture or malalignment. Joint spaces are preserved. Nodestructive or suspicious bone lesions. No soft tissue swelling. Mildbilateral ankle atherosclerosis. IMPRESSION: No findings to account for pain. Kirsten ORONA IMG XR LOWER EXTREMITY Delia l Result documented in this encounter Visit Diagnoses Diagnosis Bilateral foot pain- Primary Bilateral foot pain documented in this encounter Additional Health Concerns Infection Onset Date Last Indicated Resolved Time CoV-Exposed Comment:Recent close contact documented in the COVID-19 PCR/PRO order 04/26/2021 04/26/2021 05/11/2021 1:21 AM E DT documented as of this encounter Care Teams Asset Coordinator Relationship Specialty Start Date End Date Kevin oGod DO [email or web address] PCP - General Internal Medicine 01/01/21 documented as of this encounter Additional Source Comments The information contained in this document represents components of the legal health record. It is not the complete legal health record.[facility]
--- OUTSIDE RECORDS SUMMARY | 2025-05-29 18:18 | XMS_ITS | Encounter Summary ---
Author Organization [facility] Address [address] [place] [address] Phone Care Team Providers Care Superintendent Distribution Name Role Phone Kevin Good DO Primary Care Provider [phone] Encounter Details Date Type Department Care Team (Late st Contact Info) Description 11/23/2022 Procedure Pass Non-Invasive Cardiology [address] [place] [address] Social History Tobacco Use Types Packs/Day Years Used Date Smoking Tobacco: Former Cigarettes Smokeless Tobacco: Never Alcohol Use Standard Drinks/Week Comments Yes 7 (1 standard drink = 0.6 oz pur e alcohol) Education Answer Date Recorded Are you interested in more education? Not on tim e 11/11/2022 Are you concerned about learning? Not on file 11/11/2022 No 11/11/2022 No 11/11/2022 Sex and Gender Information Value Date Recorded Sex Assigned at Male 05/22/2023 4:50 PM EST Legal Sex Male 9:58 PM EDT Gender Identity Male 05/22/2023 4:50 PM EST Sexual Orientation Straight 05/22/2023 4: 50 PM EST documented as of this encounter Plan of Treatment Not on file documented as of this encounter Visit Diagnoses Not on filedocumented in this encounter Care Teams Superintendent Distribution Relationship Specialty Start Date End Date Kevin Good DO PCP - General Internal Medicine 01/01/21 documented as of this encounter Additional Source Comments The information contained in this document represents components of the legal health record. It is not the complete legal health record.[facility]
--- OUTSIDE RECORDS SUMMARY | 2025-05-29 18:18 | XMS_ITS | Encounter Summary ---
Author Organization [facility] Address [address] [facility] [facility] [place] [phone] Phone Care Team Providers Care Industrial Sociologist Name Role Phone Kevin Good DO Primary Care Provider [phone] Encounter Details Date Type Department Care Team (Late st Contact Info) Description 04/26/2021 Transcribe Orders Virtual Department [address] [place] [address] Kevin Good DO [address] [facility] [address] [place] [address] Encounter for laboratory testing for COVID-19 virus (Primary Dx) Social History Tobacco Use Types Packs/Day Years Used Date Smoking Tobacco: Former Cigarettes Smokeless Tobacco: Never Alcohol Use Standard Drinks/Week Comments Yes 7 (1 standard drink = 0.6 oz pur e alcohol) Sex and Gender Information Value Date Recorded Sex Assigned at Male 05/22/2023 4:50 PM EST Legal Sex Male 9:58 PM EDT Gender Identity Male 05/22/2023 4:50 PM EST Sexual Orientation Straight 05/22/2023 4: 50 PM EST documented as of this encounter Plan of Treatment Not on file documented as of this encounter Results * COVID-19 PCR Order (04/27/2021 12:45 PM EDT) COVID Testing Status mismt [facility] Symptomatic? NO [facility] Other 04/27/2021 12:4 5 PM EDT 04/27/2021 5:50 PM EDT us Kevin Good DO LAB GENERAL ORDERABLES Final Res ult [address] [address] documented in this encounter Visit Diagnoses Diagnosis Encounter for laboratory testing for COVID-19 virus- Primary documented in this encounter Additional Health Concerns Infection Onset Date Last Indicated Resolved Time CoV-Exposed Comment:Recent close contact documented in the COVID-19 PCR/PRO order 04/26/2021 04/26/2021 05/11/2021 1:21 AM E DT documented as of this encounter Care Teams Industrial Sociologist Relationship Specialty Start Date End Date Kevin Good DO [email or web address] PCP - General Internal Medicine 01/01/21 documented as of this encounter Additional Source Comments The information contained in this document represents components of the legal health record. It is not the complete legal health record.[facility]
--- OUTSIDE RECORDS SUMMARY | 2025-05-29 18:18 | XMS_ITS | Encounter Summary ---
Author Organization [facility] Address [address] [facility] [address] [place] [address] Phone Care Team Providers Care Event Organizer Name Role Phone Kevin Good DO Primary Care Provider Encounter Details Date Type Department Care Team (Latest Contact Info) Description 11/22/2022 Transcribe Orders Virtual Department [address] [place] [address] Kirsten Handy PA [address] [place] [address] [place] [address] Paroxysmal atrial fibrillation (Primary Dx) Social History Tobacco Use Types [...] documented as of this encounter Visit Diagnoses Diagnosis Paroxysmal atrial fibrillation- Primary Atrial fibrillation documented in this encounter Care Teams Event Organizer Relationship Specialty Start Date End Date Kevin Good DO [email or web address] PCP - General Internal Medicine 01/01/21 documented as of this encounter Additional Source Comments The information contained in this document represents components of the legal health record. It is not the complete legal health record.[facility]
--- OUTSIDE RECORDS SUMMARY | 2025-05-29 18:18 | XMS_ITS | Encounter Summary ---
Author Organization [facility] Address [address] [facility] [address] [place] [address] Phone Care Team Providers Care Ore Feeder Name Role Phone Kevin Good DO Primary Care Provider [phone] Reason for Referral * Outpatient Procedure - Closed Specialty Diagnoses / Procedures Referred By Contdamon t Referred To Contact Diagnoses Atrial fibrillation, unspecified type Procedures Stress Test Exercise Kirsten Handy PA [address] [facility] [place] [address] Phone: tel: fax: Referral ID Status Reason Start Date Expiration Date Visits Re quested Visits Authorized [id number] Closed 11/23/2022 11/23/2023 1 1 Encounter Details Date Type Department Care Team (Latest Contact Info) Description 11/23/2022 Transcribe Orders Virtual Department [address] [place] [address] Kirsten Handy PA [address] [facility] [place] [address] Atrial fibrillation, unspecified type (Primary Dx) Social History Tobacco Use Types [...] documented as of this encounter Results * Holter Monitor 24 Hours (12/05/2022 3:33 PM EDT) Total Beats 85,875 [facility] Ventricular Ectopy Total Beats 87 [facility] Ventricular Ectopy Single Beats 84 [facility] Ventricular Pair 0 [facility] Ventricular Runs 1 [facility] Longest Ventricular Beats 3 [facility] Longest Ventricular Rate 141 BPM [facility] Fastest Ventricular Beats 3 [facility] Fastest Ventricular Rate 141 BPM [facility] Supraventricular Total Beats 138 [facility] Supraventricular Ectopic Single Beats 109 [facility] Supraventricular Pairs 4 [facility] Supraventricular Runs 5 [facility] Supraventricular Longest Run 6 [facility] Longest Supraventricular Run Rate 93 BPM [facility] Fastest Supraventricular Run Rate 110 BPM [facility] PHS CV HOLTER SUPRAVENTRICULAR FASTEST RUN 5 [facility] Mean Heart Rate 69 BPM [facility] Maximum Heart Rate 94 BPM P [facility] Minimum Heart Rate 58 BPM P [facility] Longest RR 1.500 S [facility] Anatomical Region Laterality Modality Heart Other 12/02/2022 10:0 8 AM EDT 12/05/2022 3:33 PM EDT Narrative 12/15/2022 8:17 AM EDT This patient is probably dominant rhythm is normal sinus rhythm. The minimum heart rate is 58 the average heart rate is 69 bpm the max heart rate during sinus rhythm was 94. He had a short burst of SVT of 141 bpm. There were no long pauses there were occasional PACs and PVCs. There was a short burst of SVT that was asymptomatic Holter Monitor Main Form Mean HR: 69 bpm Max HR: 94 bpm Min HR: 58 bpm Ventricular ectopic beats - total: 87 Ventricular ectopic beats - singles: 84 Ventricular ectopic beats - pairs: 0 Ventricular ectopic beats - runs: 1 The longest ventricular run was 3 at 141 bpm. The fastest ventricular run was 3 beatsat 141 bpm. Supraventricular ectopic beats - total: 138 Supraventricular ectopic beats - singles: 109 Supraventricular ectopic beats - pairs: 4 Supraventricular ectopic beats - runs: 5 The longest supraventricular run was 6 beats at 93 bpm. The fastest supraventricular run was 5 beats at 110 bpm. Longest R-R interval1.500 sec Kirsten ORONA CV CARDIAC SERVICES ORDERAB LES Final Result * Stress Test Exercise (12/02/2022 10:24 AM EDT) [facility] Max BP Systolic 164 mmHg [facility] Max BP Diastolic 82 mmHg [facility] Max HR 129 BPM [facility] Resting HR 85 BPM [facility] Resting BP Systolic 134 mmHg [facility] Resting BP Diastolic 82 mmHg [facility] Peak METS 7.8 METS [facility] Peak HR 129 BPM [facility] Anatomical Region Laterality Modality Heart Other 12/02/2022 9:23 AM EDT 12/02/2022 10:24 AM EDT Narrative 12/02/2022 11:04 AM EDT Response to Stress The patient exercised for minutes seconds, achieving 7.8 METS at peak exercise. Baseline blood pressure was 134/82 mmHg, and baseline heart rate was 85 bpm. The patient achieved a peak heart rate of 129 bpm, which is% of their maximum predicted heart rate. REPORT- Patient exercised for 6:16 minutes on a KARINE protocol achieving 7.8 METS. Test terminated due to fatigue. Baseline resting heart rate was 80 bpm. Maximum heart rate achieved was 129 bpm (85% MPHR). 1. EKG - Baseline EKG showed sinus rhythm with non-specific ST/T wave abnormalities. During exercise, there were no EKG changes meeting criteria for ischemia. 2. SYMPTOMS - No chest pain. 3. EXERCISE PHYSIOLOGY - Average functional capacity for age. BP 140/80 at rest, 164/80 during exercise, and 140/80 upon discharge from stress lab. Oxygen saturation maintained > 95% on room air during exercise. 4. ARRHYTHMIAS - Frequent PACs during exercise. Conclusion - No EKG evidence of ischemia or symptoms concerning for angina. Krissy De Anda NP with Dr Song . Kirsten ORONA CV STRESS ORDERABLES Final Result documented in this encounter Visit Diagnoses Diagnosis Atrial fibrillation, unspecified type- Primary Atrial fibrillation, unspecified type Atrial fibrillation, unspecified type documented in this encounter Care Teams Ore Feeder Relationship Specialty Start Date End Date Kevin Good DO [email or web address] PCP - General Internal Medicine 01/01/21 documented as of this encounter Additional Source Comments The information contained in this document represents components of the legal health record. It is not the complete legal health record.[facility]
--- OUTSIDE RECORDS SUMMARY | 2025-05-29 18:18 | XMS_ITS | Encounter Summary ---
Author Organization [facility] Address [address] [facility] [address] [place] [id number] Phone Care Team Providers Care Certified Court Interpreter Name Role Phone GenieKevin boles Marli LOWE Primary Care Provider [phone] Reason for Referral * MRI/CAT Scan - Closed Specialty Diagnoses / Procedures Referred By Porsha saldaña Referred To Contact Radiology Diagnoses Other specified disorders of adrenal gland Procedures CT Abdomen Only (No Pelvis) Kirsten Handy PA [address] [facility] [place] [address] [place] [address] Phone: tel: fax: Referral ID Status Reason Start Date Expiration Date Visits Re quested Visits Authorized [id number] Closed 12/19/2022 12/19/2023 1 1 Encounter Details Date Type Department Care Team (Latest Contact Info) Description 12/19/2022 Transcribe Orders Virtual Department [address] [place] [address] Kirsten Handy PA [address] [facility] [place] [address] [place] [address] Other specified disorders of adrenal gland (Primary Dx) Social History Tobacco Use Types Packs/Day Years Used Date Smoking Tobacco: Former Cigarettes Smokeless Tobacco: Never Alcohol Use Standard Drinks/Week Comments Yes 7 (1 standard drink = 0.6 oz pur e alcohol) Education Answer Date Recorded Are you interested in more education? Not on tim e 11/11/2022 Are you concerned about learning? Not on file 11/11/2022 No 11/11/2022 No 11/11/2022 Digital Access Answer Date Recorded No 12/12/2022 No 12/12/2022 Reliable internet access at home? Not on file 12/12/2022 Device with a working camera? Not on file Sex and Gender Information Value Date Recorded Sex Assigned at Male 05/22/2023 4:50 PM EST Legal Sex Male 9:58 PM EDT Gender Identity Male 05/22/2023 4:50 PM EST Sexual Orientation Straight 05/22/2023 4: 50 PM EST documented as of this encounter Plan of Treatment Not on file documented as of this encounter Results * CT ABDOMEN (ADRENAL MASS) WITHOUT CONTRAST (01/11/2023 8:38 AM EDT) Anatomical Region Laterality Modality Abdomen, Abdominal Vasculature C omputed Tomography 01/11/2023 8:35 AM EDT Impressions 01/11/2023 8:49 AM EDT 1. Right adrenal lipid rich adenoma. 2. Fatty infiltration of the liver. 3. Simple cyst left kidney. POS - [id number] Narrative 01/11/2023 8:49 AM EDT HISTORY: Adrenal mass evaluation. COMPARISON: CT abdomen and pelvis with IV contrast 09/21/2020. MRI abdomen 04/30/2021. TECHNIQUE: Volumetric imaging obtained from dome of the through the upper abdomen including both adrenal glands and majority of the kidneys. No oral or IV contrast. Sagittal and coronal reformats generated. Automated exposure control utilized. FINDINGS: 1.4 x 1.4 x 1.5 cm right adrenal nodule redemonstrated measuring mildly negative Hounsfield unit density. Previous MRI showed loss of signal on out of phase sequences. Findings are in keeping with lipid rich adenoma. No suspicious features. Left adrenal gland is normal. Fatty infiltration of the liver. No focal abnormality. Nondistended gallbladder without calcified calculi. No biliary dilation. Normal appearance to spleen and pancreas. 2.6 x 3.3 cm transverse diameter fluid density focus/cyst projects from the posterior medial aspect of the left kidney. No suspicious features. Imaged portions of the kidneys otherwise normal. Mural calcification affects nondilated upper abdominal aorta. No concerning bony abnormality. Lung bases are clear. Procedure Note Ashok Recio MD - 01/11/2023 HISTORY: Adrenal mass evaluation. COMPARISON: CT abdomen and pelvis with IV contrast 09/21/2020. MRI [id number]/2021. TECHNIQUE: Volumetric imaging obtained from dome of the through the upperabdomen including both adrenal glands and majority of the kidneys. No oralor IV contrast. Sagittal and coronal reformats generated. Automatedexposure control utilized. FINDINGS: 1.4 x 1.4 x 1.5 cm right adrenal nodule redemonstrated measuring mildlynegative Hounsfield unit density. Previous MRI showed loss of signal onout of phase sequences. Findings are in keeping with lipid rich adenoma.No suspicious features. Left adrenal gland is normal. Fatty infiltration of the liver. No focal abnormality. Nondistendedgallbladder without calcified calculi. No biliary dilation. Normal appearance to spleen and pancreas. 2.6 x 3.3 cm transverse diameter fluid density focus/cyst projects fromthe posterior medial aspect of the left kidney. No suspicious features.Imaged portions of the kidneys otherwise normal. Mural calcification affects nondilated upper abdominal aorta. Noconcerning bony abnormality. Lung bases are clear. IMPRESSION: 1. Right adrenal lipid rich adenoma. 2. Fatty infiltration of the liver. 3. Simple cyst left kidney. POS - [id number] Kirsten ORONA IMG CT XSPECIALTY ORDERABLE S Final Result documented in this encounter Visit Diagnoses Diagnosis Other specified disorders of adrenal gland- Primary Other specified disorders of adrenal gland documented in this encounter Care Teams Certified Court Interpreter Relationship Specialty Start Date End Date Kevin Good DO [email or web address] PCP - General Internal Medicine 01/01/21 documented as of this encounter Additional Source Comments The information contained in this document represents components of the legal health record. It is not the complete legal health record.[facility]
--- OUTSIDE RECORDS SUMMARY | 2025-05-29 18:18 | XMS_ITS | Encounter Summary ---
Author Organization [facility] Address [address] [place] [id number] Phone Care Team Providers Care Child Care Sitter Name Role Phone Kevin Good DO Primary Care Provider [phone] Encounter Details Date Type Department Care Team (Late st Contact Info) Description 02/23/2021 Procedure Pass [facility], [address] [address] Social History Tobacco Use Types Packs/Day Years [...] Diagnoses Not on filedocumented in this encounter Additional Health Concerns Infection Onset Date Last Indicated Resolved Time CoV-Exposed Comment:Recent close contact documented in the COVID-19 PCR/PRO order 04/26/2021 04/26/2021 05/11/2021 1:21 AM E DT documented as of this encounter Care Teams Child Care Sitter Relationship Specialty Start Date End Date Kevin Good DO PCP - General Internal Medicine 01/01/21 documented as of this encounter Additional Source Comments The information contained in this document represents components of the legal health record. It is not the complete legal health record.[facility]
--- OUTSIDE RECORDS SUMMARY | 2025-05-29 18:18 | XMS_ITS | Encounter Summary ---
Author Organization [facility] Address [address] [address] Phone Care Team Providers Care Mixing Tumbler Operator Name Role Phone Kevin Good DO Primary Care Provider [phone] Encounter Details Date Type Department Care Team (Late st Contact Info) Description 04/28/2021 Transcribe Orders Virtual Department [address] [place] [address] Kevin Good DO [address] [facility] [place] [address] Social History Tobacco Use Types Packs/Day Years [...] documented as of this encounter Care Teams Mixing Tumbler Operator Relationship Specialty Start Date End Date Kevin Good DO [email or web address] PCP - General Internal Medicine 01/01/21 documented as of this encounter Additional Source Comments The information contained in this document represents components of the legal health record. It is not the complete legal health record.[facility]
--- OUTSIDE RECORDS SUMMARY | 2025-05-29 18:18 | XMS_ITS | Encounter Summary ---
Author Organization [facility] Address [address] [place] [id number] Phone Care Team Providers Care Automotive Refinisher Name Role Phone Kevin Good DO Primary Care Provider [phone] Reason for Referral * Outpatient Procedure - Closed Specialty Diagnoses / Procedures Referred By Porsha saldaña Referred To Contact Radiology Diagnoses Screening for ischemic heart disease Procedures US Abdominal Aortic Screening Kevin Good DO Phone: tel: fax: [email or web address] Referral ID Status Reason Start Date Expiration Date Visits Re quested Visits Authorized [id number] Closed 02/14/2022 02/14/2023 1 1 Encounter Details Date Type Department Care Team (Late st Contact Info) Description 02/14/2022 Transcribe Orders Virtual Department [address] [place] [address] Kevin Good DO [address] [place] [address] [email or web address] Screening for ischemic heart disease (Primary Dx) Social History Tobacco Use Types [...] documented as of this encounter Results * US Abdominal Aortic Screening (02/25/2022 10:17 AM EDT) Anatomical Region Laterality Modality Abdomen Ultrasound 02/25/2022 12:4 6 PM EDT Impressions 02/25/2022 4:07 PM EDT No AAA. Narrative 02/25/2022 4:07 PM EDT COMPARISON: MRI abdomen ABDOMINAL AORTA ULTRASOUND FINDINGS: *Limited due to bowel gas.* Proximal aorta is limited. No evidence of an abdominal aortic aneurysm. Aorta measures up to 2 cm proximally. The proximal common iliac arteries are nonaneurysmal. Procedure Note Familia Anders MD - 02/25/2022 COMPARISON: MRI abdomen ABDOMINAL AORTA ULTRASOUND FINDINGS: *Limited due to bowel gas.* Proximal aorta is limited. No evidence of an abdominal aortic aneurysm.Aorta measures up to 2 cm proximally. The proximal common iliac arteriesare nonaneurysmal. IMPRESSION: No AAA. us Kevin Good DO IMG US ABDOMEN Final Result documented in this encounter Visit Diagnoses Diagnosis Screening for ischemic heart disease- Primary Screening for ischemic heart disease documented in this encounter Care Teams Automotive Refinisher Relationship Specialty Start Date End Date Kevin Good DO [email or web address] PCP - General Internal Medicine 01/01/21 documented as of this encounter Additional Source Comments The information contained in this document represents components of the legal health record. It is not the complete legal health record.[facility]
--- OUTSIDE RECORDS SUMMARY | 2025-05-29 18:18 | XMS_ITS | Data Portability ---
Author Organization [facility], Telehealth Patient Home Address [address] [place] [address] Assessment Encounter Date Assessment Date Assessment LastModified [...] Details Appointments MEDICARE ANNUAL WELLNESS 2025 10:00A ADWOA MURPHY Not available Not available Not available Lab CMP, serum or plasma 2024 025 [facility], [place], [address], 12/30/2024 14:48:08 CBC w/ auto diff 2024 025 [facility], [place], [address], 12/30/2024 14:48:08 lipid panel, blood 2024 025 [facility], [place], [address], 12/30/2024 14:48:08 PSA, serum or plasma 2024 025 [facility], [place], [address], 12/30/2024 14:48:08 hemoglobi n A1c, QN, blood 2024 025 [facility], [place], [address], 12/30/2024 14:48:08 Referral sleep medicine referral 2023 024 page [facility], [address] [place] [address], [address], 05/08/2024 08:18:01 Procedures None recorded. Surgeries None recorded. Imaging None recorded. Medication Orders irbesarta n 150 mg-hydroc hlorothia zide 12.5 mg tablet 2024 025 [facility], [address] [place] [address], [address], 12/30/2024 14:49:51 niacin ER 1,000 mg tablet,ex tended release 24 hr 2024 025 [facility], [address] [place] [address], [address], 12/30/2024 14:59:33 famotidin e 40 mg tablet 2024 025 [facility], [address] [place] [address], [place], [address], 12/30/2024 14:50:27 Eliquis 5 mg tablet 2024 025 [facility], [address] [place] [address], [address], 12/30/2024 14:49:52 metoprolo l succinate ER 25 mg tablet,ex tended release 24 hr 2022 023 [email or web address] [facility], [address] [facility], [place], [address], 05/07/2024 11:31:00 Patient TargetsNo targets recorded. Patient InstructionsNo instructions [...] arter y No observ ation record ed. [address] (Medical Records) [address] [place], [address], 12/22/2023 07:41:43 12/20/19 24 12/05/2023 US, renal arter y No observ ation record ed. [address] (Medical Records) [address] [place], [address], 12/22/2023 07:41:25 01/11/20 24 01/04/2024 vin can cardi olite stres s test (PROC ) No observ ation record ed. [email or web address] [facility] (Medical Records) [address] [place], [address], 01/12/2024 10:47:06 11/23/1911/22/2024 US, ankle No observ ation record ed. [facility] (Medical Records) [address] [place], [address], 12/30/2024 14:55:14 11/23/19 25 11/22/2024 US, ankle No observ ation record ed. [facility] (Medical Records) [address] [place], [address], 12/30/2024 14:55:14 02/29/20 25 02/27/2025 XR, ankle , 3 or more view No observ ation record ed. [address], [address], 02/28/2025 12:44:05 02/29/20 25 02/27/2025 XR, foot, 3 or more view No observ ation record ed. [address], [address], 02/28/2025 12:44:05 Result Notes None recorded. 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 5 14:56:50 Non-alcoh olic fatty liver 999720087 Active 2020 Not Available [facility] 2 22:26:55 Tinnitus 82578480 Active 2020 Not Available [facility] 22:26:55 Cobalamin deficienc y 043464080 Active 2020 Not Available [facility] 2 22:26:55 Motion sickness 63843001 Active 2021 Not Available [facility] 2 22:26:54 Paroxysma l atrial fibrillat ion 903913823 Active 2022 ADWOA BOCANEGRA [address] [place] [address], [address], [facility] 3 10:46:40 Adrenal cyst 182467377 Active 2022 ADWOA BOCANEGRA [address] [place] [address], [address], [facility] 3 11:36:16 Dysuria 05717733 Active 2022 ADWOA BOCANEGRA [address] [place] [address], [address], [facility] 3 11:37:49 Atrial fibrillat ion 51612034 Active 2022 ADWOA BOCANEGRA [address] [place] [address], [address], [facility] 3 10:17:59 Erectile dysfuncti on 830601151 Active 2022 ADWOA BOCANEGRA [address] [place] [address], [address], [facility] 3 10:43:20 Essential hypertens ion 20374102 Active 2022 ADWOA BOCANEGRA [address] [place] [address], [address], [facility] 3 10:46:50 Malignant hypertens ion 07085377 Active 2022 ADWOA BOCANEGRA [address] [place] [address], [address], [facility] 3 10:01:59 Hypertens gilberto emergency 19514690395 9104 Active 2022 ADWOA BOCANGERA [address] [place] [address], [address], [facility] 3 10:04:44 Malignant essential hypertens ion 65784202 Active 2022 ADWOA BOCANEGRA [address] [place] [address], [address], [facility] 3 11:26:23 Benign prostatic hyperplas ia 906586285 Active 2022 ADWOA BOCANEGRA [address] [place] [address], [address], [facility] 3 11:28:14 Resistant hypertens gilberto disorder 81749540275 4109 Active 2022 ADWOA BOCANEGRA [address] [place] [address], [address], [facility] 3 11:12:57 Grinding teeth 88496660 Active 2023 ADWOA BOCANEGRA [address] [place] [address], [address], [facility] 4 12:20:10 Fatigue 58987254 Active 2023 ADWOA BOCANEGRA [address] [place] [address], [address], [facility] 4 12:21:35 Colitis 25860219 Active 2023 ADWOA BOCANEGRA [address] [place] [address], [address], [facility] 4 12:24:00 Acute ankle pain 57202607017 105 Active 2024 ADWOA BOCANEGRA [address] [place] [address], [address], [facility] 5 14:30:31 Notes:Some problems listed i n Documents: #[id number], #[id number] could not be added to this patient's chart. Please review these documents and add these problems to the patient's chart manually as needed. Problem Notes None recorded. Procedures Surgical History Date Name Laterality Status Provider Name and Address Organization Details Recorded Time 05/02/20 23 Colonoscopy completed Kevin Good DO [address] [place] [address], [address], [facility] 05/03/2023 11:18:22 05/02/20 endoscopy completed Kevin Good DO [address] [place], [address], [facility] 05/03/2023 11:18:58 Imaging Results None recorded. Procedure Notes None recorded. Medical Equipment None Reported. Allergies Allergen ID Allergen Name Allergen Category Reaction Reaction Severity Criticality Documentation Date Start Date Code Code System Note Provider Name and Address Organization Details Recorded Time 4646 Flagyl medicatio n Not available Not available Not available 02/09/2021 6 RxNorm Concepcion Cervantes [facility] 15:12:14 4647 Pentasa medicatio n Not available Not available Not available 02/09/2021 5 RxNorm Concepcion Cervantes [facility] 1 15:12:20 7089 amlodipin e medicatio n swelling Not available Not available 02/20/2023 69380 RxNorm Jenny Zen [facility] 3 09:56:38 7090 hydralazi ne medicatio n Not available Not available Not available 02/20/2023 5470 RxNorm Jenny Zaldivar [facility] 3 09:56:55 7091 clonidine medicatio n Not available Not available Not available 02/20/2023 2599 RxNorm Jenny Zen [facility] 3 09:57:19 7092 nifedipin e medicatio n Not available Not available Not available 02/20/2023 7417 RxNorm Jenny Zen [facility] 3 09:58:41 7093 spironola ctone medicatio n abdominal pain nausea Not available Not available Not available 02/20/2023 9997 RxNorm ADWOA BOCANEGRA [address] [place], [address], [facility] 3 11:23:02 7449 prazosin medicatio n Not available Not available Not available 05/23/2023 8629 RxNorm ADWOA BOCANEGRA [address] [place], [address], [facility] 3 11:25:21 7450 doxazosin medicatio n Not available Not available Not available 05/23/2023 71096 RxNorm ADWOA BOCANEGRA [address] [place], [address], [facility] 3 11:25:28 9070 Product containin g 3-hydroxy -3-methyl glutaryl- coenzyme A reductase inhibitor (product) medicatio n Not available Not available [facility] 12/30/2024 62523 009 SNOMED muscl e pain, sob, fatig ue, weigh t gain, feet pain, swell ing ADWOA BOCANEGRA [address] [place], [address], [facility] 5 14:45:31 Medications Name [...] mg tablet TAKE 1 TABLET BY MOUTH Twice a day 2024 active Not Available Not Available Not Avai lable metoprolol succinate ER 50 mg tablet,exte nded release 24 hr TAKE 1 TABLET BY MOUTH TWICE DAILY 07/12 completed Not Available Not Available Not Available famotidine 40 mg tablet TAKE 1 TABLET BY MOUTH ONCE DAILY NEEDED active Not Available Not Available No t [...] Not Available Not Available No t Available Repatha SureClick 140 mg/mL subcutaneou s pen injector INJECT CONTENTS OF 1 PEN SUBCUTANE OUSLY EVERY 2 WEEKS active Not Available Not Available No t Available Vitals Date Recorded Body height Body mass index (BMI) Body weight Heart rate Oxygen saturation Oxygen saturation in Arterial blood by Pulse oximetry Systolic And Diastolic Provider Name and Address Organization Details Last Updated DateTime 5 173.99 cm 28.5 kg/m2 10423.5 5 g 60 /min 98 % 98 % 140/68 mm[Hg] [facility] 5 14:19:52 Date Recorded Body height Body mass index (BMI) Body weight Heart rate Oxygen saturation Oxygen saturation in Arterial blood by Pulse oximetry Systolic And Diastolic Provider Name and Address Organization Details Last Updated DateTime 4 173.99 cm 28.5 kg/m2 42774.9 1 g 56 /min 97 % 97 % 162/86 mm[Hg] Marcie Hensley [facility] 4 11:32:49 Social History Question Answer Notes LastModified by Organizat ion Details LastModified Time Tobacco Smoking Status Former Smoker Quit 30 years ago Vidhi mcdermott [facility] 01/05/2022 11:23:50 What Is Your Level Of Caffeine Consumption? Heavy 2 Large Per Day Information not available 02/19/2021 Which Illicit Or Recreational Drugs Have You Used? Canabis Information not available 02/19/2021 What Was The Date Of Your Most Recent Tobacco Screening? 12/30/2024 [email or web address] Information not available 12/30/2024 Sex: Unknown Functional Status Question Answer Note LastModified by Organizat ion Details LastModified Time Do you use any illicit or recreational drugs? Yes [email or web address] Information not available 05/19/2023 Do you or have you ever used any other forms of tobacco or nicotine? No [email or web address] Information not available 12/30/2024 What is your [...] mcg/0.3 mL dose 1 completed Not Available [facility] 05/23/2023 06:41:19 COVID-19, mRNA, LNP-S, PF, 30 mcg/0.3 mL dose 1 completed Not Available [facility] 05/23/2023 06:41:19 COVID-19, mRNA, LNP-S, PF, 30 mcg/0.3 mL dose 1 completed Not Available [facility] 05/23/2023 06:41:19 zoster live 8 completed Not Available [facility] 05/23/2023 06:41:19 Influenza, split virus, quadrivalent, preservative 1 completed Not Available [facility] 05/23/2023 06:41:19 SARS-COV-2 (COVID-19) vaccine, UNSPECIFIED 2 completed Marcie mcdermott, [facility] 05/07/2024 09:50:17 SARS-COV-2 (COVID-19) vaccine, UNSPECIFIED 3 completed Marcie mcdermott, [facility] 05/07/2024 09:50:26 SARS-COV-2 (COVID-19) vaccine, UNSPECIFIED 4 completed Marcie Hensley null, [facility] 05/07/2024 09:50:32 pneumococcal, unspecified formulation 4 completed Marcie mcdermott, [facility] 05/07/2024 09:50:51 influenza, unspecified formulation 2 [facility] 09:51:04 influenza, unspecified formulation 3 completed Marcie mcdermott, [facility] 05/07/2024 09:51:10 influenza, unspecified formulation 4 completed [facility]24 09:51:17 zoster, unspecified formulation 3 completed Marcie Hensley [facility] 05/07/2024 09:51:35 zoster, unspecified formulation 3 completed [facility]/07/2024 09:51:41 SARS-COV-2 (COVID-19) vaccine, UNSPECIFIED 5 completed [facility] 05/20/2025 15:04:06 Past Encounters Encounter ID Performer Location Encounter Start Date Encounter Closed Date Diagnosis/Indication Diagnosis SNOMED-CT Code Diagnosis ICD10 Code Diagnosis IMO Codes Diagnosis Note [id number] Kevin Good DO [facility] [address] [facility],[place] [address] 02/19/2021 10:27:04 02/19/2021 11:09:42 Mcdaniel's esophagus 991086415 K22.70 stable Cobalamin deficiency 190 617533 E53.8 stable Crohn's disease 34992802 K50.90 stableno recent flare ups per patient Hypercholesterolemia 136 31643 E78.00 will need recheck of his blood work Hypertensive disorder 38 253654 I10 BP elevated Liver func tion tests outside reference range 553984089 R94.5 due to fatty liver Non-alcoho lic fatty liver 706435958 K76.[address] Epiploic appendagitis 14 37321887 0770098 K38.[address] per radiologis t, but has fu with specialist to discuss findingswa nts specialist to do MRI Foot pain 66197272 M79.6 73 will fu with foot XR Pain of ri t shoulder joint 1260188850 9457404 M25.511 fu with ortho [id number] Kevin Good [facility] [address] [facility], [place] [address] 01/05/2022 11:15:06 01/05/2022 12:21:32 Crohn's disease 09832966 K50.90 stable and under control Active or passive immunization 084634310 Z23 utd Adult heal th examination 745863465 Z00.00 overall is stable and unfortunapiotr solorio is doing poorly with his bp meds causing issues Hypertensive disorder 38 024345 I10 given side effects of bradycardi a and pre syncope as well as fatigue and EDwe will try a once a day version metoprolol succ er 50 [id number] Kevin Good [facility] [address] [facility], [email or web address] [address] 01/21/2022 09:02:43 01/21/2022 10:04:03 Hypertensive disorder 64458884 I10 given side effects of bradycardi a and pre syncope as well as fatigue and EDwe will try a once a day version metoprolol succ er 25 at bedtime now and will cont the new lower dose for now Abdominal aortic aneurysm screening 741132583 Z13.6 [id number] Kevin Good [facility] [address] [facility], [place] [address] 03/11/2022 09:09:07 03/11/2022 09:57:50 Hypertensive disorder 65593676 I10 feels much better and states that he has much more energyno longer has large spiking readings/. he is much more active now we will stop the metoprolol completely and increase the irbesartan to 300mg/12.5 mg Active or passive immunization 932343937 Z23 advised due for Tdap and pneumo Depression screening 171 135982 Z13.31 PHQ2 normal today Motion sickness 39494121 T75.3XXD [id number] Kevin Good [facility] [address] [facility] [address] [address] 04/08/2022 12:07:14 04/08/2022 13:01:12 Hypertensive disorder 24286488 I10 feels overall that he is better but the bp is still running a bit too highwe will have him Hypercholesterolemia 136 06547 E78.00 Liver func tion tests outside reference range 060975201 R94.5 as noted is stable Non-alcoho lic fatty liver 618757198 K76.0 stable and no issue [id number] Kevin Good [facility] [address] [facility],[place] [address] 05/09/2022 14:37:14 05/09/2022 16:16:35 Hypertensive disorder 37188880 I10 adjusted back to the BID irbesartan /HTCZ Advance care planning 71 9453993 Z71.89 advised [id number] Kevin Good [facility] [address] [facility],[place] [address] 11/22/2022 10:21:05 11/23/2022 10:29:12 Hypercholesterolemia 07065780 E78.2 will need recheck of his blood work Hypertensive disorder 38 056697 I10 BP is good but now having low low readings with higher heart ratethe patient needs a new cardiowas seeing someone in [place] who will no longer care for him due to him being out of state Crohn's disease 57200631 K50.00 stableno recent flare ups per patient Paroxysmal atrial fibrillation 796568874 I48.0 will send to new cardio [id number] Kevin Good [facility] [address] [facility],[place] [address] 02/20/2023 09:49:57 02/20/2023 15:32:34 Active or passive immunization 417202614 Z23 discussed Adult heal th examination 068109460 Z00.00 discussed his BPcurrent medication sand current treatment plan Mcdaniel's esophagus 3029 32998 K22.70 stable Hypercholesterolemia 136 68386 E78.2 will need recheck of his blood work Hypertensive disorder 38 651785 I10 will stop labetalol and restart at 75 mg of metoprolol hold spironolac tone to see what his BP does with the irbesartan /HTCZ and metoprolol Paroxysmal atrial fibrillation 035856088 I48.0 will send to new cardio(adv ised Dr. Jones) Atrial fibrillation 4943 6004 I48.0 cont eliquisdo not start statin until levels are drawn [id number] Kevin Good [facility] [address] [facility],[place] [address] 03/06/2023 10:05:44 03/06/2023 11:45:35 Atrial fibrillation 83095567 I48.0 cont eliquisdo not start statin until levels are drawn Mcdaniel's esophagus 3029 17504 K22.70 stable Hypercholesterolemia 136 66787 E78.2 will need recheck of his blood work Erectile dysfunction 860 874490 N52.01 will have him try tadalafil Essential hypertension 90716744 I10 split the irbesartan and hydrochlor othiazide (only use HTCZ once per day)drop metoprolol to 50 mgmay be able to do 50 mg and 12.5 with meto tartrate so he can split it at the 25 mg [id number] Kevin Good DO [facility] [address] [facility],[place] [address] 04/26/2023 08:59:10 04/26/2023 11:36:42 Hypertensive disorder 80383393 I10 all meds listed as patient is taking themwill read half the dose of the doxazosin to take over for the cialis Erectile dysfunction 860 527104 N52.01 works well [id number] Kevin Good [facility] [address] [facility],[place] [address] 05/10/2023 09:36:22 05/10/2023 13:43:59 Mcdaniel's esophagus 923111939 K22.70 irritated after endoscopef ound polyps in the stomachcol on looked good Malignant hypertension 66317449 I10 will reduced the metoprolol over time and start carvedilol hold the spironolac tone (causes too many side effects) [id number] Kevin Good [facility] [address] [facility],[place] [address] 05/19/2023 09:36:57 05/19/2023 12:08:55 Malignant hypertension 66335581 I10 will reduced the metoprolol over time and start carvedilol hold the spironolac tone (causes too many side effects) Hypertensi ve emergency 6427618404 76262 I16.1 will start PRN, given instructio ns how to take medication and whenrestar t HTCZ 12.5 mg these will be for peaks Hypertensive disorder 38 549991 I10 all meds listed as patient is taking themwill read half the dose of the doxazosin to take over for the cialis [id number] Kevin Good [facility] [address] [place] [address],[facility] [place] [address] 05/23/2023 10:53:26 05/23/2023 12:09:15 Malignant essential hypertension 98748409 I10 BP works the best without sudden drops, keeps his BP between 120 to 130 without side effectswil l try to get it covered by his insurance as an alternativ e [id number] Kevin Good [facility] [address] [facility] [address] 05/30/2023 15:51:24 05/30/2023 17:04:07 Atrial fibrillation 47424576 I48.0 cont eliquis Essential hypertension 58973550 I10 adjusted treatment agian for patientwil l fu in a week Hypertensive disorder 38 813890 I10 all meds listed as patient is taking themwill read half the dose of the doxazosin to take over for the cialis [id number] Kevin Good [facility] [address] [facility],[place] [address] 06/07/2023 08:20:30 06/07/2023 11:38:09 Resistant hypertensive disorder 5219982533 63494 I1A.0 seeing cardio [place] when he goesthi week in June () [facility]. [facility] to the [address] [place] [address] [address] [address] Atrial fibrillation 4943 6004 I48.0 cont eliquis Hypertensive disorder 38 215085 I10 all meds listed as patient is taking themwill read half the dose of the doxazosin to take over for the cialis [id number] Kevin Good [facility] [address] [facility],[place] [address] 06/14/2023 08:47:09 06/16/2023 08:50:52 Essential hypertension 38175207 I10 adjusted treatment again for patientwil l f/u in a week [id number] Kevin Good [facility] [address] [facility],[place] [address] 06/21/2023 08:24:46 06/23/2023 09:46:14 Essential hypertension 67826156 I10 cont current medication s Atrial fibrillation 4943 6004 I48.0 cont eliquis [id number] Kevin Good [facility] [address] [facility],[place] [address] 05/07/2024 11:23:54 05/07/2024 14:24:16 Depression screening 263911757 Z13.31 SCREENING NEGATIVE Colitis 26475661 K50.00 stable Atrial fibrillation 4943 6004 I48.0 cont eliquis Grinding teeth 02334909 R46.89 will set up with CPAP Fatigue 08431505 R53.83 agreed to sleep study [id number] Kevin Good [facility] [address] [facility],[place] [address] 12/30/2024 13:55:02 12/30/2024 15:05:09 General examination of patient 170046977 Z00.00 973258 cont on current treatment planstatin stopped and placed on allergy list Atrial fibrillation 4943 6004 I48.0 cont eliquis Hypertensive disorder 38 148701 I10 all meds listed as patient is taking themwill read half the dose of the doxazosin to take over for the cialis Mcdaniel's esophagus 3029 81129 K22.70 irritated after endoscopef ound polyps in the stomachcol on looked good Hypercholesterolemia 136 97202 E78.00 08938 will need recheck of his blood work Health Concerns Section Related Observation LastModified by Organization Detai ls LastModified Time None Recorded Concern Status LastModified by Organization Details LastModified Time None Recorded Advance Directives Directive None Recorded Payers Insurance Date Sequence Insurance Name Policy Number Policy Allen Covered Member ID Allen Member ID Guarantor Name 12/27/2024 2 [place] Jeremie Dobbins [id number] Jeremie Dobbins 12/27/2024 1 [place] Jeremie Dobbins [id number] Jeremie Dobbins 12/27/2024 2 [place] [id number] Jeremie Dobbins [id number] Jeremie Dobbins Notes Date Note Type Note Provider Name a nd Address Organization Details Recorded Time 3 text/html ROS as noted in the HPI f.u BP recheck tele-med phone callpatient consents [...] 300 mg hold tadalafil ADWOA BOCANEGRA [address] [place], [address], [facility] 06/07/2023 11:30:15 3 text/html ROS as noted in the HPI BP f/u telemed phone call patient consents to phone call the patient is averaging higher with his BP and lower with his HR but has been feeling okaythe patient is 136/88, 62, doing well, did end up with an irregular heart rate everything sent down to cardio in [place] no irregular heartbeat todaythe patient reports his [...] 25 mg BID instead ADWOA BOCANEGRA [address] [place], [address], [facility] 06/14/2023 11:30:46 3 text/html ROS as noted in the HPI BP f/u tele-med phone callpatient consents to [...] had really good BP 116/71 only one pilyx610/71 yesterday, irregular heart beat with chest tightness 136/80 average today, is getting the alert for the irregular heart rate but no symptoms, feels good discussed f/u with cardio in [place], all info already sent there ADWOA BOCANEGRA [address] [place], [address], [facility] 06/21/2023 14:37:04 4 text/html ROS as noted in the HPI c/o would like sleep study afib: stablewas placed on atorvastatin medication working well for patient from his cardio in [facility] corrected in chartBP is great at home and at their office grinding teeth per dentist + the afib and hx of resistant HTN agreed to go forward with a sleep studywill submit for the patient no recent colitis infection having his molar removed this monday ADWOA BOCANEGRA [address] [place], [address], [facility] 05/07/2024 12:40:00 5 text/html Annual WellnessReported by PatientSocial/Behavior al HistoryFor diet and nutrition, patient reportshealthy diet,discussed vitamin and supplement use,discussed portion control,discussed maintaining calcium balance, anddiscussed diet improvement. For fracture risk, patient reportsno history of fractures,no recent explained fracture,no sudden unexplained fractures, andno previous musculoskeletal injuries. For physical activity, patient reportsexercises on a regular basis,recent increase in physical activity,good physical condition,discussed weightbearing activities, anddiscussed exercise habits. For additional lifestyle factors, patient reportsno tobacco useanddrinks alcohol (mild-moderate).Mental Status:For depression risk, patient reportsnever feels sad, empty, or tearful,no loss of interest in activities,no significant changes in weight,no sleep disturbances or insomnia,no agitation,no loss of energy,no feelings of worthlessness or guilt,no thoughts of suicide,no history of depression, andno history of mood disorders.Functional AbilityFor hearing, patient reportsno loss of hearing. For vision, patient reportsno vision problems.ROS as noted in the HPI the patient had severe side effects with the atorvastatinthe patient stopped the med and felt much bettercaused joint pain, sob, fatigue, brain fog cont off medication needs refill will trial on niacin insteadpossibly ezetimibe or fenofibrate depending on reaction if he gets side effects ADWOA BOCANEGRA [address] [facility], [place], [address], [facility] 12/30/2024 15:01:07
--- OUTSIDE RECORDS SUMMARY | 2025-05-29 18:18 | XMS_ITS | Encounter Summary ---
Author Organization [facility] Address [address] [place] [address] [place] [phone] Phone Care Team Providers Care Customer Liaison Name Role Phone Kevin Good DO Primary Care Provider [phone] Encounter Details Date Type Department Care Team (Late st Contact Info) Description 12/19/2022 Procedure Pass [facility], Ct Scan - [address] [address] Social History Tobacco Use Types Packs/Day Years [...] on filedocumented in this encounter Care Teams Customer Liaison Relationship Specialty Start Date End Date Kevin Good DO [email or web address] PCP - General Internal Medicine 01/01/21 documented as of this encounter Additional Source Comments The information contained in this document represents components of the legal health record. It is not the complete legal health record.[facility]
--- OUTSIDE RECORDS SUMMARY | 2025-05-29 18:18 | XMS_ITS | Encounter Summary ---
Author Organization [facility] Address [address] [facility] [address] [place] [address] Phone Care Team Providers Care Production Dispatcher Name Role Phone Kevin Good Primary Care Provider [phone] Encounter Details Date Type Department Care Team (Late st Contact Info) Description 02/27/2025 Ancillary Orders [facility], X-Ray - [address] [address] Kirsten Handy PA [address] [facility] [place] [address] [place] [address] Pain in left ankle and joints of left foot (Primary Dx); Acute left ankle pain Social History Tobacco Use Types Packs/Day Years Used Date Smoking Tobacco: Former Cigarettes Q uit: 1989 Smokeless Tobacco: Never Alcohol Use Standard Drinks/Week Comments Yes 6 (1 standard drink = 0.6 oz pur e alcohol) Education Answer Date Recorded Are you interested in more education? Not on tim e 11/11/2022 Are you concerned about learning? Not on file 11/11/2022 No 11/11/2022 No 11/11/2022 Digital Access Answer Date Recorded No 12/12/2022 No 12/12/2022 Reliable internet access at home? Not on file 12/12/2022 Device with a working camera? Not on file Intimate Partner Violence Answer Date R ecorded Are you denied basic needs s uch as food, clothing, or medical care? No 05/22/2023 In the past 12 months have y ou been in a relationship with a person who hurts, threatens, or tries to control you? No 05/22/2023 Are you denied basic needs s uch as food, clothing, or medical care? No 05/22/2023 In the past 12 months have y ou been in a relationship with a person who hurts, threatens, or tries to control you? No 05/22/2023 Sex and Gender Information Value Date Recorded Sex Assigned at Male 05/22/2023 4:50 PM EST Legal Sex Male 9:58 PM EDT Gender Identity Male 05/22/2023 4:50 PM EST Sexual Orientation Straight 05/22/2023 4: 50 PM EST documented as of this encounter Plan of Treatment Not on file documented as of this encounter Results * XR ANKLE 3 OR MORE VIEWS (LEFT) (02/27/2025 11:42 AM EDT) MGB IMG WASHER MACHINE COMMENT Age-indetermina te osseous body along the medial malleolus, may represent a minimally displaced avulsion fracture. Correlation with patient pain may be considered. [facility] Anatomical Region Laterality Modality Ankle Left Computed Radiogr aphy 02/28/2025 11:0 4 AM EDT Impressions 02/28/2025 11:09 AM EDT Age-indeterminate osseous body along the medial malleolus, may represent a minimally displaced avulsion fracture. Correlation with patient pain may be considered. A clinically significant result was initiated on 02/28/2025 11:09 AM, Message ID [id number]. Narrative 02/28/2025 11:09 AM EDT XR FOOT 3 OR MORE VIEWS (LEFT), XR ANKLE 3 OR MORE VIEWS (LEFT) 02/27/2025 11:32 AM Referring clinician's provided indication for this examination in Epic: Pain COMPARISON: None FINDINGS: There is an age-indeterminate osseous body along the medial malleolus, may represent a minimally displaced avulsion fracture. There is no evidence of acute subluxation or dislocation. The ankle mortise is intact. The joint spaces are preserved. There is mild soft tissue swelling over the medial malleolus. There is vascular calcification. Procedure Note Tori Vila MD - 02/28/2025 XR FOOT 3 OR MORE VIEWS (LEFT), XR ANKLE 3 OR MORE VIEWS (LEFT) 1:32 AM Referring clinician's provided indication for this examination in Epic:Pain COMPARISON: None FINDINGS: There is an age-indeterminate osseous body along the medial malleolus, mayrepresent a minimally displaced avulsion fracture. There is no evidence ofacute subluxation or dislocation. The ankle mortise is intact. The jointspaces are preserved. There is mild soft tissue swelling over the medialmalleolus. There is vascular calcification. IMPRESSION: Age-indeterminate osseous body along the medial malleolus, may represent aminimally displaced avulsion fracture. Correlation with patient pain maybe considered. A clinically significant result was initiated on 02/28/2025 11:09 AM,Message ID [id number]. Kirsten ORONA IMG XR LOWER EXTREMITY Delia l Result * XR FOOT 3 OR MORE VIEWS (LEFT) (02/27/2025 11:41 AM EDT) MGB IMG WASHER MACHINE COMMENT Age-indetermina te osseous body along the medial malleolus, may represent a minimally displaced avulsion fracture. Correlation with patient pain may be considered. [facility] Anatomical Region Laterality Modality Foot Left Computed Radiogr aphy 02/28/2025 11:0 4 AM EDT Impressions 02/28/2025 11:09 AM EDT Age-indeterminate osseous body along the medial malleolus, may represent a minimally displaced avulsion fracture. Correlation with patient pain may be considered. A clinically significant result was initiated on 02/28/2025 11:09 AM, Message ID [id number]. Narrative 02/28/2025 11:09 AM EDT XR FOOT 3 OR MORE VIEWS (LEFT), XR ANKLE 3 OR MORE VIEWS (LEFT) 02/27/2025 11:32 AM Referring clinician's provided indication for this examination in Epic: Pain COMPARISON: None FINDINGS: There is an age-indeterminate osseous body along the medial malleolus, may represent a minimally displaced avulsion fracture. There is no evidence of acute subluxation or dislocation. The ankle mortise is intact. The joint spaces are preserved. There is mild soft tissue swelling over the medial malleolus. There is vascular calcification. Procedure Note Tori Vila MD - 02/28/2025 XR FOOT 3 OR MORE VIEWS (LEFT), XR ANKLE 3 OR MORE VIEWS (LEFT) 1:32 AM Referring clinician's provided indication for this examination in [facility]:Pain COMPARISON: None FINDINGS: There is an age-indeterminate osseous body along the medial malleolus, mayrepresent a minimally displaced avulsion fracture. There is no evidence ofacute subluxation or dislocation. The ankle mortise is intact. The jointspaces are preserved. There is mild soft tissue swelling over the medialmalleolus. There is vascular calcification. IMPRESSION: Age-indeterminate osseous body along the medial malleolus, may represent aminimally displaced avulsion fracture. Correlation with patient pain maybe considered. A clinically significant result was initiated on 02/28/2025 11:09 AM,Message ID [id number]. Kirsten ORONA IMG XR LOWER EXTREMITY Delia l Result documented in this encounter Visit Diagnoses Diagnosis Pain in left ankle and joints of left foot- Primary Acute left ankle pain Pain in left ankle and joints of left foot Acute left ankle pain documented in this encounter Care Teams Production Dispatcher Relationship Specialty Start Date End Date Kevin Good DO PCP - General Internal Medicine 01/01/21 documented as of this encounter Additional Source Comments The information contained in this document represents components of the legal health record. It is not the complete legal health record.[facility]
--- OUTSIDE RECORDS SUMMARY | 2025-05-29 18:18 | XMS_ITS | Encounter Summary ---
Author Organization [facility] Address [address] [place] [address] Phone Care Team Providers Care Dna Sequencing Associate Name Role Phone Kevin Good Primary Care Provider [phone] Encounter Details Date Type Department Care Team (Late st Contact Info) Description 04/28/2021 Ancillary Orders [facility],Outside Imaging [address] [place] [address] System, Provider Not In, [facility] [address] [address] Social History Tobacco Use Types Packs/Day Years [...] as of this encounter Results * CT Abdomen/Pelvis Outside (No Interpretation) (09/21/2020 12:00 AM EST) Narrative SYSTEMGENERATED, DOCUMENTATION - 04/28/2021 1:54 PM EDT This study is for PACS storage only and not for interpretation. us Provider Not In System [facility] OUTSIDE IMAGING W /OUT INTERPRETATION Final Result documented in this encounter Visit Diagnoses Not on filedocumented in this encounter Additional Health Concerns Infection Onset Date Last Indicated Resolved Time CoV-Exposed Comment:Recent close contact documented in the COVID-19 PCR/PRO order 04/26/2021 04/26/2021 05/11/2021 1:21 AM E DT documented as of this encounter Care Teams Dna Sequencing Associate Relationship Specialty Start Date End Date Kevin Good DO [email or web address] PCP - General Internal Medicine 01/01/21 documented as of this encounter Additional Source Comments The information contained in this document represents components of the legal health record. It is not the complete legal health record.[facility]
--- OUTSIDE RECORDS SUMMARY | 2025-05-29 18:18 | XMS_ITS | Encounter Summary ---
Author Organization [facility] Address [address] [place] [address] [place] [phone] Phone Care Team Providers Care Jewel Corner Brushing Machine Operator Name Role Phone Kevin Good DO Primary Care Provider [phone] Encounter Details Date Type Department Care Team (Late st Contact Info) Description 05/02/2023 Procedure Pass [facility] Admitting Dept Virtual Department [address] [place] [address] Social History Tobacco Use Types Packs/Day Years [...] on filedocumented in this encounter Care Teams Jewel Corner Brushing Machine Operator Relationship Specialty Start Date End Date Kevin Good DO [email or web address] PCP - General Internal Medicine 01/01/21 documented as of this encounter Additional Source Comments The information contained in this document represents components of the legal health record. It is not the complete legal health record.[facility]
--- OUTSIDE RECORDS SUMMARY | 2025-05-29 18:19 | XMS_ITS | Clinical Summary ---
Author Organization [facility] Address [address] [place] [phone] Phone Care Team Providers Care Shared Services Manager Name Role Phone Cayden Eaton Primary Care Provider [phone] Allergies Active Allergy Reactions Criticality Noted Date Comments Amlodipine Other (See Comments) 05/01/2023 Pins and needles in body Clonidine Hives 05/01/2023 Hydralazine 05/01/2023 Mesalamine 03/18/2021 Metronidazole 03/18/2021 Nifedipine Other (See Comments) 05/01/2023 Pins and needles in body Spironolactone Nausea and/or Vomiting,Pain Low 05/01/2023 Medications cyanocobalamin (VITAMIN B-12) 1,000 mcg/mL injection Active lansoprazole (PREVACID) 30 MG capsule lansoprazole 30 mg capsule,delayed release TAKE 1 CAPSULE BY MOUTH DAILY Active syringe with needle, safety (BD INTEGRA SYRINGE) 3 mL 25 gauge x 1 Syrg Active ELIQUIS 5 mg tablet 2 (two) times a day. 3 Active doxycycline hyclate (VIBRAMYCIN) 100 MG capsule 3 Active irbesartan-hydr oCHLOROthiazide (AVALIDE) 150-12.5 mg per tabletIndicatio ns:Hypertension , unspecified type Take 2 tablets by mouth daily. 60 tablet 2 3 Active Additional Information Patient not taking.Reported on 05/01/2023 metoprolol succinate (TOPROL-XL) 50 MG 24 hr tablet Take 100 mg by mouth daily. 3 Active guanFACINE (TENEX) 1 MG tablet Take 1 tablet by mouth every morning. 3 Active BD LUER-DAVID SYRINGE 3 mL 25 gauge x 1 Syrg 3 Active doxazosin (CARDURA) 4 MG tablet Take 2 mg by mouth nightly at bedtime. Active tadalafiL (CIALIS, ADCIRCA) 20 MG tablet Take 20 mg by mouth daily as needed for erectile dysfunction. Active hydroCHLOROthia zide (HYDRODIURIL) 12.5 MG tablet Take 12.5 mg by mouth daily. Active irbesartan (AVAPRO) 300 MG tablet Take 300 mg by mouth daily. Active spironolactone (ALDACTONE) 25 MG tablet Take 25 mg by mouth daily. Active prazosin (MINIPRESS) 2 MG capsule Take 2 mg by mouth nightly at bedtime. Active famotidine (PEPCID) 20 MG tablet Take 20 mg by mouth daily. Active Active Problems Problem Noted Date Diagnosed Date Adrenal adenoma, right 04/07/2023 Assessment & Plan (04/07/2023 10:00 AM EDT): Repeat CT imaging again shows a lipid rich adenoma. This is a benign finding and has grown slightly is not consistent with malignancy or pheochromocytoma. Previous biochemical work-up was negative for Wakefield syndrome, primary hyperaldosteronism or pheochromocytoma. I did offer to repeat the studies for confirmation but the patient felt that he did not want to do it again. Paroxysmal atrial fibrillation 11/23/2022 Assessment & Plan (11/23/2022 2:33 PM EDT): Patient gives history of atrial fibrillation recently. We have not received any office records. Showed me the ER record on his phone which showed the diagnosis of paroxysmal atrial fibrillation. He is anticoagulated his [id number] score is 2 At this point I recommend that we change calcium channel jeanna to beta-jeanna because he is not getting the benefit of AV nikki blocking agent and will continue his anticoagulation and possibly think about start adding antiarrhythmic drug like flecainide. Meantime we will do the echocardiogram 24-hour Holter and a stress test and agreed to the plan Risk benefits of thromboembolism and treatment with anticoagulation discussed in detail Palpitations 11/23/2022 Lesion of adrenal gland 02/23/2021 Assessment & Plan (05/07/2021 1:17 PM EDT): The patient has a right adrenal adenoma measuring 1.3 x 1.1 x 1.4 cm on the most recent imaging done at [facility]. Based on this imaging study it is lipid rich consistent with a benign adrenal adenoma. Previous biochemical evaluation shows that is nonsecreting. So at this point there is no further work-up required. The patient will not be given a follow-up appointment. Assessment & Plan (04/13/2021 9:27 AM EDT): The patient has a right adrenal mass that measures 1.4 x 1.3 cm with 51 Hounsfield unit uptake. It is nonsecreting based on biochemical evaluation. He still requires MRI imaging and I did request three-phase imaging. The patient will have to return for follow-up to review the report. Assessment & Plan (02/23/2021 9:15 AM EDT): This patient was found to have an adrenal incidentaloma on the right which measures 1.4 x 1.3 cm with increased Hounsfield unit. At this point I have requested a three-phase MRI study of the adrenal glands. I have also requested biochemical studies to determine if the lesion is secreting. I requested dexamethasone suppression test for evaluation of Naima syndrome. Aldosterone and renin levels for evaluation of primary hyperaldosteronism and plasma metanephrines for screening of pheochromocytoma. I will give the patient a follow-up appointment in 2 months time but if he gets the imaging studies done earlier then he is welcome to reschedule for an earlier appointment. Encounters Date Type Department Care Team Description 04/02/2025 1:40 PM EDT Office Visit [facility] [address] [place] [id number] Joaquina Kern PA-C Sprain of deltoid ligament of left ankle, subsequent encounter (Primary Dx) 03/03/2025 12:15 PM EDT Office Visit [facility] [address] [place] [phone] Bladimir Waters PA-C Sprain of deltoid ligament of left ankle, initial encounter (Primary Dx) 02/27/2025 11:10 AM EDT - 02/27/2025 11:59 PM EDT Hospital Encounter [address] [address] Kirsten Handy PA Discharge Disposition: Home or Self Care 02/27/2025 11:10 AM EDT - 02/27/2025 11:59 PM EDT Hospital Encounter [address] [address] Kirsten Handy PA Discharge Disposition: Home or Self Care 02/27/2025 Ancillary Orders [address] [address] Kirsten Handy PA Pain in left ankle and joints of left foot (Primary Dx); Acute left ankle pain from Last 3 Months Family History Medical History Relation Comments Hypertension Father Stroke Father Alzheimer's disease Mother Relation Status Comments Father Mother Social History Tobacco Use Types Packs/Day Years Used Date Smoking Tobacco: Former Cigarettes Q uit: 1989 Smokeless Tobacco: Never Tobacco Cessation:Counseling Given: Not Answered Alcohol Use Standard Drinks/Week Comments Yes 6 [...] Orientation Straight 05/22/2023 4: 50 PM EST Last Filed Vital Signs Vital Sign Reading Time Taken Comments Blood Pressure 134/72 05/23/2023 12:23 AM EST Pulse 58 05/23/2023 12:23 AM EST Temperature 36.4 C (97.5 F) 05/23/2023 12:35 AM EST Respiratory Rate 11 05/23/2023 12:23 AM EST Oxygen Saturation 97% 05/23/2023 12:23 AM EST Inhaled Oxygen Concentration - - Weight 86.2 kg (190 lb) 05/22/2023 4:51 PM EST Height 170.2 cm (5' 7 ) 05/22/2023 4:51 PM EST Body Mass Index 29.76 05/22/2023 4:51 PM EST Plan of Treatment Health Maintenance Due Date Last Done Comments Adult Td,Tdap Booster 1955 DEPRESSION SCREENING 1965 SMOKING Hx and SMOKELESS TOBACCO SCREENING 1966 HEPATITIS C SCREENING 1971 COLOGUARD 1998 FIT TEST 1998 FOBT 1998 SIGMOIDOSCOPY 1998 VIRTUAL COLONOSCOPY 1998 CREATININE LEVEL 05/22/2024 05/22/2023, 09/2022, 02/17/2023, Additional history exists POTASSIUM LEVEL 05/22/2024 05/22/2023, 1109/2022, 02/17/2023, Additional history exists INFLUENZA VACCINE (#1) 2025 , 04/23/2023, 05/02/2022, Additional history exists COVID-19 VACCINE ( season) 2025 04/08/2024, 04/23/2023, 05/02/2022, Additional history exists LIPID PANEL 02/21/2028 02/20/2023, 01/10/2022 COLONOSCOPY 05/02/2033 05/02/2023 COLORECTAL CANCER SCREENING 05/02/2033 ABDOMINAL AORTIC ANEURYSM (AAA) SCREENING Completed 01/11/2023, 02/25/2022 ZOSTER VACCINES Completed 04/23/2023, 0802/2023, 07/29/2017 PNEUMOCOCCAL VACCINES (50+ years) Completed 04/08/2024 RSV VACCINE Completed 05/10/2024 HEPATITIS A VACCINES Aged Out No long er eligible based on patient's age to complete this topic HIB VACCINES Aged Out No longer eligi ble based on patient's age to complete this topic IPV VACCINES Aged Out No longer eligi ble based on patient's age to complete this topic MENINGOCOCCAL VACCINES (ACWY) Aged Out No longer eligible based on patient's age to complete this topic MENINGOCOCCAL VACCINES (B) Aged Out N o longer eligible based on patient's age to complete this topic Medical Devices Not on file Procedures Procedure Name Priority Date/Time Associated Diagnosis Comments XR ANKLE 3 OR MORE VIEWS (LEFT) Routine 02/27/2025 11:42 AM EDT Acute left ankle pain XR FOOT 3 OR MORE VIEWS (LEFT) Routine 02/27/2025 11:41 AM EDT Pain in left ankle and joints of left foot BASIC METABOLIC PANEL (BMP) STAT 05/22/2023 10:29 PM EST ENDOSCOPY, COLON 05/02/2023 10:4 8 AM EDT LIPID PANEL Routine 02/20/2023 11:01 AM EDT Mixed hyperlipidemia CT ABDOMEN (ADRENAL MASS) WITHOUT CONTRAST Routine 01/11/2023 8:38 AM EDT Other specified disorders of adrenal gland from Last 3 Months or Most Recently Relevant to Health Maintenance Results * XR ANKLE 3 OR MORE VIEWS (LEFT) (02/27/2025 11:42 AM EDT) [facility] 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 Correlation with patient pain may be considered. [facility] Anatomical Region Laterality Modality Ankle Left Computed Radiogr aphy 02/28/2025 11:0 4 AM EDT Impressions 02/28/2025 11:09 AM EDT Age-indeterminate osseous body along the medial malleolus, may represent a minimally displaced avulsion fracture. Correlation with patient pain may be considered. A clinically significant result was initiated on 02/28/2025 11:09 AM, Message ID [id number]. Narrative 02/28/2025 11:09 AM EDT XR FOOT [...] was initiated on 02/28/2025 11:09 AM,Message ID [id number]. [facility] Mason Rozina ORONA IMG XR LOWER EXTREMITY Delia l Result * XR FOOT 3 OR MORE VIEWS (LEFT) (02/27/2025 11:41 AM EDT) MGB 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 Correlation with patient pain may be considered. [facility] Anatomical Region Laterality Modality Foot Left Computed Radiogr aphy 02/28/2025 11:0 4 AM EDT Impressions 02/28/2025 11:09 AM EDT Age-indeterminate osseous body along the medial malleolus, may represent a minimally displaced avulsion fracture. Correlation with patient pain may be considered. A clinically significant result was initiated on 02/28/2025 11:09 AM, Message ID [id number]. Narrative 02/28/2025 11:09 AM EDT XR FOOT [...] clinician's provided indication for this examination in [facility]:Pain COMPARISON: None FINDINGS: There is an [...] was initiated on 02/28/2025 11:09 AM,Message ID [id number]. Kirsten ORONA IMG XR LOWER EXTREMITY Delia l Result * (ABNORMAL) Basic metabolic panel (05/22/2023 10:29 PM EST) SODIUM 139 133 - 146 mmol/L [facility] CHLORIDE 106 96 - 108 mmol/L [facility] POTASSIUM 3.7 3.3 - 5.1 mmol/L [facility] CO2 23 21 - 35 mmol/L [facility] BUN 30(H) 6 - 19 mg/dL [facility] CREATININE 1.20 0.5 - 1.5 mg/dL [facility] GLUCOSE 109(H) 70 - 99 mg/dL [facility] CALCIUM 8.8 8.4 - 10.3 mg/dL [facility] EGFR 65 >59 mL/min/1.7 3m2 [facility] Comment:Estimated glomerular filtration rate calculated using the CKD-EPI refit equation. ANION GAP 14 10 - 20 mmol/L [facility] Blood 05/22/2023 10:2 9 PM EST 05/22/2023 10:32 PM EST us Mau Mercer PA-C LAB BLOOD BKR ORDERABLES Fin al Result Performing Organization Address City/State/[facility] Co de Phone Number [address] [address] * ENDOSCOPY, COLON (05/02/2023 10:48 AM EDT) Narrative Transcriptions Sukh Coyne MD, MPH - 05/02/2023 10:48 AM EDT [facility] Patient Name: Jeremie Dobbins Attending MD:: SUKH COYNE MD, Procedure Date: 05/02/2023 10:48AM Date of : 1955 Age: 67 Admit Type: Outpatient Gender: Male Room: [facility] Referring MD: CAYDEN EATON DO Exam Type: Colonoscopy Indications: High risk colon cancer surveillance: Personalhistory of colonic polyps Medications: Monitored Anesthesia Care Procedure: Informed consent was obtained from the patientafter discussion of the indications, limitations, alternatives, benefits, and risks of the procedure. Risks specifically discussed include but are not limited to medication reactions, missed lesions, bleeding, perforation, or the need for emergent surgery. Throughout the procedure, the patient's blood pressure, pulse, end-tidal CO2, and oxygensaturations were monitored continuously. The Olympus adult variable colonoscope [id number] #1 was introduced through the anus and advanced to the terminal ileum. The colonoscopy was performedwithout difficulty. The patient tolerated the procedurewell. The quality of the bowel preparation was evaluated using the BBPS (Braham Bowel Preparation Scale)with scores of: Right Colon = 3, Transverse Colon = 3and Left Colon = 3 (entire mucosa seen well with no residual staining, small fragments of stool oropaque liquid). The total BBPS score equals 9. Theterminal ileum, ileocecal valve, appendiceal orifice, and rectum were photographed. Complications: No immediate complications. Findings: The perianal and digital rectal examinations were normal. The terminal ileum appeared normal. 1cm lipoma on the ileo-cecal valve which appearedto have abnormal mucosa. Resection was attemptedwithout success. Following ligation with a cold snare, subcutaneous fat was visualized within the lipoma.A clip was placed to close the defect. Multiple small and large-mouthed diverticula were found in the left colon. No additional abnormalities were found onretroflexion. Impression: - The examined portion of the ileum was normal. - Lipoma on the ileo-cecal valve. Resectionattempted. Due to visualization of subcutaneous fat within the lipoma, a clip was placed to close the defect. - Diverticulosis in the left colon. - No specimens collected. Recommendation: - Repeat colonoscopy in 5 years for surveillancebased on prior history of colonic polyps. - Monitor for signs of fever and abdominal pain. - Okay to resume home apixiban in [address] Sukh Coyne SUKH COYNE MD 05/02/2023 11:46:20 AM This report has been signed electronically. Number of Addenda: 0 Note Initiated On: 05/02/2023 10:48 AM Procedure Code(s): --- Professional --- 75661, Colonoscopy, flexible; diagnostic, including collection of specimen(s) by brushing or washing, when performed (separateprocedure) --- Technical --- 51505, Colonoscopy, flexible; diagnostic, including collection of specimen(s) by brushing or washing, when performed (separateprocedure) Diagnosis Code(s): --- Professional --- Z86.010, Personal history of colonic polyps K57.30, Diverticulosis of large intestine without perforation or abscess without bleeding --- Technical --- Z86.010, Personal history of colonic polyps K57.30, Diverticulosis of large intestine without perforation or abscess without bleeding CPT copyright 2021 [employer]. All rights reserved. The codes documented in this report are preliminary and upon transporter radiology reviewmay be revised to meet current compliance requirements. Procedure Date: 05/02/2023 10:48:51 AM [address] [place] [address] us Cayden A Bigda DO GI PROCEDURE ORDERABLES Final Re sult * (ABNORMAL) Lipid panel (02/20/2023 11:01 AM EDT) Pathologist [facility] HDL 62 mg/dL [facility] Comment: Interpretation <40 mg/dL: Low HDL cholesterol (major risk factor for CHD) Greater than or equal to 60 mg/dL: High HDL cholesterol ( negative risk factor for CHD) HDL - cholesterol is affected by a number of factors, e.g. smoking, excerise, hormones, sex and age. CHOLESTEROL 229 0 - 240 mg/dL [facility] TRIGLYCERIDES 186(H) 30 - 160 mg/dL [facility] LDL 130(H) 50 - 129 mg/dL [facility] Comment: LDL levels in terms of risk for coronary heart disease: <100 mg/dL: Optimal 100-129 mg/dL: Near or above optimal 130-159 mg/dL: Borderline high 160-189 mg/dL: High >190 mg/dL: Very High CARDIAC RISK RATIO 3.7 3.4 - 5.0 C [facility] Blood 02/20/2023 11:0 1 AM EDT 02/20/2023 11:02 AM EDT us Kirsten ORONA LAB BLOOD BKR ORDERABLES Fi nal Result [facility] [address] [place], [place] [id number] * CT ABDOMEN (ADRENAL MASS) WITHOUT CONTRAST (01/11/2023 8:38 AM EDT) Anatomical Region Laterality Modality Abdomen, Abdominal Vasculature C omputed Tomography 01/11/2023 8:35 AM EDT Impressions 01/11/2023 8:49 AM EDT 1. Right adrenal lipid rich adenoma. 2. Fatty infiltration of the liver. 3. Simple cyst left kidney. POS - [id number] Narrative 01/11/2023 8:49 AM EDT HISTORY: Adrenal [...] and pelvis with IV contrast 09/21/2020. MRI [id number]/2021. TECHNIQUE: Volumetric imaging obtained from dome of [...] 3. Simple cyst left kidney. POS - [id number] us Kirsten ORONA IMG CT XSPECIALTY ORDERABLE S Final Result from Last 3 Months or Most Recently Relevant to Health Maintenance Insurance MEDICARE PART A & B [employer] SUPPLEMENT MEDICARE PART A & B [employer] SUPPLEMENT MEDICARE PART A & B [employer] MEDEX SUPPLEMENT MEDICARE PART A & B [employer] in [employer] MEDEX SUPPLEMENT MEDICARE PART A & B Work in [employer] MEDEX SUPPLEMENT MEDICARE PART A & B [employer] MEDEX SUPPLEMENT MEDICARE PART A & B [employer] MEDEX SUPPLEMENT MEDICARE PART A & B [employer] MEDEX SUPPLEMENT [employer] MEDEX SUPPLEMENT Care Teams Shared Services Manager Relationship Specialty Start Date End Date GenieCayden [email or web address] PCP - General Internal Medicine 01/01/21 Additional Source Comments The information contained in this document represents components of the legal health record. It is not the complete legal health record.[facility]
== END 2025-05-29 15:37 | disposition home or self-care (01) ==
LOC: HO.HCS 15:04
PROVIDERS: PCP Internal Medicine; Visit Provider Internal Medicine
DX: I10 Essential (primary) hypertension (principal); I48.0 Paroxysmal atrial fibrillation; I47.29 Other ventricular tachycardia; I77.72 Dissection of iliac artery
CPT/HCPCS: 99214; G2211

== ENCOUNTER → 2025-05-29 15:03 | Outpatient (BNVA) | payer MEDICARE, SELFPAY | PROVIDERS: PCP Internal Medicine; Visit Provider Internal Medicine | DX: I10 Essential (primary) hypertension (principal); I48.0 Paroxysmal atrial fibrillation; I47.29 Other ventricular tachycardia; I77.72 Dissection of iliac artery; Z79.01 Long term (current) use of anticoagulants | CPT/HCPCS: 99212 ==